=== PATIENT | female | born 1970 | race Caucasian/White ===

== ENCOUNTER 2020-02-21 15:14 | Outpatient (CLI) | payer MEDICARE, OTHER, SELFPAY ==
--- NOTE | ~2020-02-21 | MM_ITS ---
EXAMINATION: MM screening kyleigh BI w sydnie HISTORY: Screening mammogram TECHNIQUE: Craniocaudal and mediolateral oblique 3-D tomosynthesis images were obtained and synthetic 2-D images were generated. CAD analysis was submitted and interpreted. COMPARISON: 02/11/2015 BREAST PARENCHYMAL COMPOSITION: The breasts are heterogeneously dense, which may obscure small masses . FINDINGS: There is no evidence of suspicious mass, calcification, or architectural distortion to sugg est malignancy in either breast. There has been no suspicious interval change. IMPRESSION: 1. No mammographic evidence of malignancy. 2. Recommend routine screening mammography in one year. BI-RADS Category 1: Negative Reviewed, dictated and finalized at location A. TCHER
== END 2020-02-21 15:15 | disposition home or self-care (01) ==
LOC: ANHIMG 15:24
PROVIDERS: PCP Internal Medicine Infectious Disease; Visit Provider Internal Medicine Infectious Disease
DX: Z12.31 Encounter for screening mammogram for malignant neoplasm of breast (principal)
CPT/HCPCS: 77063; 77067

== ENCOUNTER → 2020-06-12 10:19 | Outpatient (CLI) | payer MEDICARE, OTHER, SELFPAY ==
--- NOTE | ~2020-06-12 | XR_ITS ---
EXAMINATION: HAND-KENYON ARTHRITIS 3+VIEWS DATE: 06/12/2020 11:30 INDICATION: Osteoarthritis and rheumatoid arthritis TECHNIQUE: Posteroanterior, lateral, and oblique views of the left and of the right hands as well as a ballcatchers view of both hands were obtained. COMPARISON: 11/06/2013 FINDINGS: Normal alignment at the bilateral hands and wrists. No fracture. Joint spaces appear relatively prese rved throughout with no erosions or osteophytosis to suggest either an inflammatory or degenerative a rthritis respectively. Soft tissues are unremarkable. IMPRESSION: 1. Negative bilateral hand radiographs. No evident arthritis. Reviewed, dictated and finalized at location A.
--- NOTE | ~2020-06-12 | XR_ITS ---
XR foot LT standing 2V DATE: 06/12/2020 11:30 INDICATION: Rheumatoid arthritis TECHNIQUE: Weightbearing AP and lateral views COMPARISON: None FINDINGS: No fracture or dislocation, periosteal reaction or bone destruction. Joint spaces are prese rved. No erosive changes. IMPRESSION: Negative Reviewed, dictated and finalized at location A. IMPRESSION: Negative
--- NOTE | ~2020-06-12 | XR_ITS ---
XR foot RT standing 2V DATE: 06/12/2020 11:30 INDICATION: Rheumatoid arthritis TECHNIQUE: Weightbearing AP and lateral views COMPARISON: None FINDINGS: No fracture, dislocation, periosteal reaction or bone destruction, joint space narrowing or erosive change. IMPRESSION: Negative Reviewed, dictated and finalized at location A. IMPRESSION: Negative
== END ==
PROVIDERS: PCP Internal Medicine Infectious Disease; Visit Provider Internal Medicine
DX: M06.9 Rheumatoid arthritis, unspecified (principal); M19.90 Unspecified osteoarthritis, unspecified site
CPT/HCPCS: 73130; 73620

== ENCOUNTER 2021-05-09 15:05 | Outpatient (CLI) | payer OTHER, SELFPAY ==
[2021-05-09 16:14] LABS: Hematocrit 41.7 % (37.0-47.0); Hemoglobin 13.2 g/dL (12.0-15.0); Mean Corpuscular HGB Conc 31.7 g/dl (32-36); Mean Corpuscular Hemoglobin 29.9 pg (26-34); Mean Corpuscular Volume 94.6 fl (80-100); Mean Platelet Volume 10.1 fl (7.4-10.4); Platelet Count Result 281 k/mm3 (150-375); Red Blood Count 4.41 M/mm3 (4.2-5.4); Red Cell Distribution Width 13.3 % (11.5-14.5); White Blood Count 5.8 K/mm3 (4.5-10.0)
[2021-05-09 16:29] LABS: Alanine Aminotransferase 13 U/L (4-35); Albumin Level 4.7 g/dL (3.5-5.1); Alkaline Phosphatase 66 U/L (38-126); Anion Gap 10 mmol/L (8-16); Aspartate Amino Transferase 27 U/L (14-36); Bilirubin,Total 0.3 mg/dL (0.2-1.3); Blood Urea Nitrogen 14 mg/dL (7-17); CRP < 0.5 mg/dL (<1.0); Calcium 8.8 mg/dL (8.4-10.2); Carbon Dioxide 26 mmol/L (22-30); Chloride 104 mmol/L (98-107); Estimated Glomerular Filt Rate > 60; Glucose 88 mg/dL (65-110); Potassium 3.7 mmol/L (3.4-5.0); Sodium 140 mmol/L (137-145)
[2021-05-09 16:39] LABS: Add Urine Microscopic? YES; Appearance Urine Clear (Clear); Bilirubin Urine Negative (Negative); Blood Urine 1+ (Negative); Color Urine Yellow (Yellow); Glucose Urine UA Negative (Negative); Ketones Urine Negative (Negative); Leukocyte Esterase Ur Negative LEU/UL (Negative); Mucus Urine Rare /lpf; Nitrate Urine Negative (Negative); Protein Urine Negative (Negative); RBC Urine 0-2 /hpf (0-2); Specific Grav Ur 1.019 (1.001-1.035); Squamous Epithelial Cell Urine Occasional /hpf (Few); Urobilinogen Urine Negative mg/dL (<2.0); WBC Urine 0-3 /hpf
[2021-05-09 16:45] LABS: Erythrocyte Sedimentation Rate 9 mm/hr (0-20)
== END 2021-05-09 15:06 | disposition home or self-care (01) ==
LOC: ANHLAB 15:06
PROVIDERS: PCP Internal Medicine Infectious Disease; Visit Provider Internal Medicine
DX: M06.09 Rheumatoid arthritis without rheumatoid factor, multiple sites (principal)
CPT/HCPCS: 36415; 80053; 81001; 85027; 85652; 86140

== ENCOUNTER → 2021-05-27 15:37 | Outpatient (CLI) | payer OTHER, SELFPAY ==
--- NOTE | ~2021-05-27 | US_ITS ---
EXAMINATION: US retroperitoneal comp EXAM DATE: 05/27/2021 15:54 INDICATION: Family hx of renal cancer . Urethral sling 2018. TECHNIQUE: Multiple grayscale and Doppler images of the kidneys were obtained (by a technologist who performed the scan) and subsequently reviewed. There is no prior study for comparison. FINDINGS: Right kidney: There is normal contour and echogenicity. It measures 8.8 x 4.3 x 4.2 centimeters. Th ere are no focal renal lesions identified. There is no hydronephrosis. Left kidney: There is normal contour and echogenicity. It measures 9.6 x 5.3 x 5.1 centimeters. The re are no focal renal lesions identified. There is no hydronephrosis. Bladder unremarkable. IMPRESSION: Sonographically unremarkable kidneys. Reviewed, dictated and finalized at location A.
== END ==
PROVIDERS: PCP Urology; Visit Provider Internal Medicine Infectious Disease
DX: Z87.448 Personal history of other diseases of urinary system (principal); Z80.51 Family history of malignant neoplasm of kidney
CPT/HCPCS: 76770

== ENCOUNTER 2021-06-24 15:55 | Outpatient (CLI) | payer OTHER, SELFPAY ==
--- NOTE | ~2021-06-24 | MM_ITS ---
EXAMINATION: MM screening kyleigh BI w sydnie HISTORY: Screening mammogram TECHNIQUE: Craniocaudal and mediolateral oblique 3-D tomosynthesis images were obtained and synthetic 2-D images were generated. Bilateral rotated lateral CC views. CAD analysis was submitted and interp reted. COMPARISON: 02/21/2020, 02/11/2015 bilateral screening mammogram examinations BREAST PARENCHYMAL COMPOSITION: The breasts are heterogeneously dense, which may obscure small masses . FINDINGS: There is no evidence of suspicious mass, calcification, or architectural distortion to sugg est malignancy in either breast. There has been no suspicious interval change. IMPRESSION: 1. No mammographic evidence of malignancy. 2. Recommend routine screening mammography in one year. BI-RADS Category 1: Negative Reviewed, dictated and finalized at location A.
== END 2021-06-24 15:56 | disposition home or self-care (01) ==
PROVIDERS: PCP Urology; Visit Provider Obstetrics & Gynecology
DX: Z12.31 Encounter for screening mammogram for malignant neoplasm of breast (principal)
CPT/HCPCS: 77063; 77067

== ENCOUNTER 2021-11-04 11:37 | Outpatient (CLI) | payer OTHER, SELFPAY ==
[2021-11-04 14:49] LABS: Hematocrit 39.4 % (37.0-47.0); Hemoglobin 12.7 g/dL (12.0-15.0); Mean Corpuscular HGB Conc 32.2 g/dl (32-36); Mean Corpuscular Hemoglobin 30.2 pg (26-34); Mean Corpuscular Volume 93.8 fl (80-100); Mean Platelet Volume 10.2 fl (7.4-10.4); Platelet Count Result 282 k/mm3 (150-375)
== END 2021-11-04 11:38 | disposition home or self-care (01) ==
LOC: ANHLAB 11:39
PROVIDERS: PCP Internal Medicine Infectious Disease; Visit Provider Internal Medicine
DX: M06.9 Rheumatoid arthritis, unspecified (principal)
CPT/HCPCS: 36415; 85027

== ENCOUNTER 2021-11-25 13:11 | Outpatient (CLI) | payer OTHER, SELFPAY | END 2021-11-25 13:12 | disposition home or self-care (01) | LOC: ANHLAB 13:12 | PROVIDERS: Internal Medicine Critical Care Medicine; PCP Internal Medicine Infectious Disease; Visit Provider Internal Medicine Hematology & Oncology | DX: D64.9 Anemia, unspecified (principal); Z72.821 Inadequate sleep hygiene | CPT/HCPCS: 36415; 82728 ==

== ENCOUNTER 2022-02-19 13:22 | Outpatient (CLI) | payer OTHER, SELFPAY ==
[2022-02-19 13:43] LABS: Hematocrit 40.1 % (37.0-47.0); Hemoglobin 13.2 g/dL (12.0-15.0); Mean Corpuscular HGB Conc 32.9 g/dl (32-36); Mean Corpuscular Hemoglobin 30.1 pg (26-34); Mean Corpuscular Volume 91.6 fl (80-100); Mean Platelet Volume 9.8 fl (7.4-10.4); Platelet Count Result 291 k/mm3 (150-375); Red Blood Count 4.38 M/mm3 (4.2-5.4); Red Cell Distribution Width 12.7 % (11.5-14.5); White Blood Count 5.2 K/mm3 (4.5-10.0)
[2022-02-19 14:04] LABS: Add Urine Microscopic? YES; Appearance Urine Slightly Cloudy (Clear); Bilirubin Urine Negative (Negative); Blood Urine 1+ (Negative); Color Urine Yellow (Yellow); Glucose Urine UA Negative (Negative); Ketones Urine Negative (Negative); Leukocyte Esterase Ur Negative LEU/UL (Negative); Nitrate Urine Negative (Negative); Protein Urine Negative (Negative); Specific Grav Ur >= 1.030 (1.001-1.035); Urobilinogen Urine 0.2 mg/dL (<2.0); pH Urine 5.5 (5.0-9.0)
[2022-02-19 14:24] LABS: Bacteria Urine Trace /hpf; Mucus Urine Few /lpf; Squamous Epithelial Cell Urine Many /hpf (Few); WBC Urine 0-3 /hpf
[2022-02-19 14:26] LABS: Erythrocyte Sedimentation Rate 14 mm/hr (0-20)
[2022-02-19 16:09] LABS: Alanine Aminotransferase 20 U/L (6-35); Albumin Level 4.4 g/dL (3.5-5.1); Alkaline Phosphatase 59 U/L (38-126); Anion Gap 7 mmol/L (8-16); Aspartate Amino Transferase 26 U/L (14-36); Bilirubin,Total 0.5 mg/dL (0.2-1.3); Blood Urea Nitrogen 11 mg/dL (7-17); CRP < 0.5 mg/dL (<1.0); Calcium 8.6 mg/dL (8.4-10.2); Carbon Dioxide 25 mmol/L (22-30); Chloride 105 mmol/L (98-107); Estimated Glomerular Filt Rate > 60; Glucose 113 mg/dL (65-110); Potassium 3.7 mmol/L (3.4-5.0); Sodium 137 mmol/L (137-145)
== END 2022-02-19 13:23 | disposition home or self-care (01) ==
LOC: ANHLAB 13:25
PROVIDERS: Internal Medicine Critical Care Medicine; PCP Internal Medicine Geriatric Medicine; Visit Provider Internal Medicine
DX: M19.90 Unspecified osteoarthritis, unspecified site (principal); D64.9 Anemia, unspecified; M06.09 Rheumatoid arthritis without rheumatoid factor, multiple sites; E55.9 Vitamin D deficiency, unspecified
CPT/HCPCS: 36415; 80053; 81001; 82306; 82728; 85027; 85652; 86140

== ENCOUNTER 2022-03-11 13:17 | Outpatient (CLI) | payer OTHER, SELFPAY ==
--- NOTE | ~2022-03-11 | XR_ITS ---
XR fl inj shoulder RT - MR/CT DATE: 03/11/2022 14:26 INDICATION: Glenoid labral tear right shoulder TECHNIQUE: The purpose of the procedure, technique and potential complications were discussed with th e patient. The patient indicated understanding and gave consent. Timeout procedure confirmed proper patient. The skin of the anterior aspect of the right shoulder was prepared with sterile Betadine solution. St erile drape was applied. 1% lidocaine local anesthetic was administered to the skin and underlying brock bcutaneous tissues. A 22-gauge spinal needle was introduced into the right glenohumeral joint space using fluoroscopic gu idance. 12 CC mixed Omnipaque, multi-Nancy and lidocaine injection was made into the glenohumeral boy nt using fluoroscopy to confirm intra-articular position of the contrast material. The needle was then withdrawn. The patient tolerated procedure well, without complaint IMPRESSION: Pre-MRI right shoulder intra-articular injection of 12 CC mixed Omnipaque and multi-Nancy contrast material and lidocaine Reviewed, dictated and finalized at Location A. Reviewed, dictated and finalized at location B. [employer] IMPRESSION: Pre-MRI right shoulder intra-articular injection of 12 CC mixed Omn ipaque and multi-Nancy contrast material and lidocaine
--- NOTE | ~2022-03-11 | MR_ITS ---
EXAMINATION: MR shoulder RT w con DATE: 03/11/2022 15:05 INDICATION: Tear of the right glenoid labrum TECHNIQUE: Magnetic resonance imaging (MRI) of the right shoulder was performed following intra-rich cular gadolinium contrast injection and without intravenous contrast. Details of the glenohumeral boy nt injection have been dictated separately. Sequences included axial T2-weighted FS FSE, axial T1-we ighted FS FSE, coronal oblique T1-weighted FS FSE, coronal oblique T2-weighted FSE, sagittal T2-weigh bull FS FSE, sagittal T1-weighted FSE, and ABER (abduction external rotation) T1-weighted FS FSE. COMPARISON: None. FINDINGS: Coracoacromial arch: The acromion undersurface is curved in morphology (type II). The coracoacromial ligament is normal. M ild acromioclavicular osteoarthritis with likely vacuum phenomena within a small subarticular cystlik e changes at the acromial side of the joint space. Rotator cuff: Supraspinatus, teres minor and subscapularis tendons are normal. Mild infraspinatus tendinopathy with partial thickness intrasubstance tear intact bursal and articular surfaces of the tendon. The torn p ortion of the tendon is retracted centrally within the muscle belly approximately 4.5 cm medially fro m the middle facet footplate the level of the spinal glenoid notch. The lateral tear margin is diffic ult to appreciate likely occurring at or near the footplate. The torn portion of the tendon appears t o involve relatively significant portion of the right tendon. There is prominent infraspinatus muscul ar edema surrounding the torn and retracted tendon. Remaining rotator cuff musculature is unremarkabl e. Biceps tendon, glenoid labrum and glenohumeral cartilage: Long head of the biceps tendon is intact. There is a superior, anterior to posterior tear of the sammy oid labrum (SLAP tear) which extends posterior from the 12:30 position to the 11:00 position of the s uperior glenoid labrum. There is an additional tear measuring 3 mm craniocaudally at the chondral lab ral junction at the 9:00 position of the glenoid. Glenohumeral cartilage is otherwise normal. Bones and other: Normal marrow signal with no fracture or abnormal marrow replacing process. No abnormal fluid signal in the subacromial/subdeltoid bursa to suggest bursitis. IMPRESSION: 1. HIdden intrasubstance tear involving a significant portion of the infraspinatus tendon which is re tracted within the muscle belly to the level of the spinal glenoid notch but with intact bursal and a rticular surfaces with surrounding edema suggesting this is relatively recent. The site of the latera l tear margin remains indeterminate. 2. SLAP tear at the 11:00-12:30 position of the superior glenoid labrum and very small tear at the ch ondral labral junction at the 9:00 position of the posterior glenoid labrum. 3. Mild acromioclavicular osteoarthritis. Reviewed, dictated and finalized at location A. E PULLER IMPRESSION: 1. HIdden intrasubstance tear involving a significant portion of the infraspina tus tendon which is retracted within the muscle belly to the level of the spina l glenoid notch but with intact bursal and articular surfaces with surrounding edema suggesting this is relatively recent. The site of the lateral tear margin remains indeterminate. 2. SLAP tear at the 11:00-12:30 position of the superior glenoid labrum and andrew y small tear at the chondral labral junction at the 9:00 position of the pot liner ior glenoid labrum. 3. Mild acromioclavicular osteoarthritis.
== END 2022-03-11 13:18 ==
PROVIDERS: PCP Internal Medicine Infectious Disease; Visit Provider Orthopaedic Surgery
DX: S43.431S Superior glenoid labrum lesion of right shoulder, sequela (principal); M19.011 Primary osteoarthritis, right shoulder; S46.811A Strain of other muscles, fascia and tendons at shoulder and upper arm level, right arm, initial encounter; T14.90XS Injury, unspecified, sequela
CPT/HCPCS: 23350; 73222; 77002; A9577; Q9967

== ENCOUNTER 2022-05-29 11:32 | Outpatient (CLI) | payer OTHER, SELFPAY ==
[2022-05-29 12:24] LABS: Hematocrit 38.4 % (37.0-47.0); Hemoglobin 12.5 g/dL (12.0-15.0); Mean Corpuscular HGB Conc 32.6 g/dl (32-36); Mean Corpuscular Hemoglobin 30.9 pg (26-34); Mean Corpuscular Volume 94.8 fl (80-100); Mean Platelet Volume 10.1 fl (7.4-10.4); Platelet Count Result 280 k/mm3 (150-375); Red Blood Count 4.05 M/mm3 (4.2-5.4); Red Cell Distribution Width 13.2 % (11.5-14.5); White Blood Count 9.9 K/mm3 (4.5-10.0)
[2022-05-29 14:39] LABS: Immature Reticulocyte Fraction 7.7 % (3.0-15.9); Reticulocyte Hemoglobin Conten 34.8 pg (28.2-35.7); Reticulocytes Absolute 0.07 B/L (32.2-175.7)
[2022-05-29 14:43] LABS: Appearance Urine Clear (Clear); Bilirubin Urine Negative (Negative); Blood Urine Negative (Negative); Color Urine Yellow (Yellow); Glucose Urine UA Negative (Negative); Ketones Urine Negative (Negative); Leukocyte Esterase Ur Negative LEU/UL (Negative); Nitrate Urine Negative (Negative); Protein Urine Negative (Negative); Specific Grav Ur 1.009 (1.001-1.035); Urobilinogen Urine 0.2 mg/dL (<2.0)
[2022-05-29 14:44] LABS: Add Urine Microscopic? NO
[2022-05-29 14:52] LABS: Alanine Aminotransferase 18 U/L (6-35); Albumin Level 4.6 g/dL (3.5-5.1); Alkaline Phosphatase 62 U/L (38-126); Anion Gap 9 mmol/L (8-16); Aspartate Amino Transferase 26 U/L (14-36); Bilirubin,Total 0.4 mg/dL (0.2-1.3); Blood Urea Nitrogen 10 mg/dL (7-17); Calcium 9.3 mg/dL (8.4-10.2); Carbon Dioxide 31 mmol/L (22-30); Chloride 101 mmol/L (98-107); Estimated Glomerular Filt Rate > 60; Glucose 87 mg/dL (65-110); Potassium 3.5 mmol/L (3.4-5.0); Sodium 141 mmol/L (137-145)
[2022-05-29 14:58] LABS: Erythrocyte Sedimentation Rate 14 mm/hr (0-20)
[2022-05-29 15:04] LABS: Vitamin D 25 Hydroxy 24.8 ng/mL
[2022-05-29 15:53] LABS: Iron 92 ug/dL (37-170)
[2022-05-29 16:19] LABS: Percent Iron Saturation 30 % (20-50)
== END 2022-05-29 11:33 | disposition home or self-care (01) ==
LOC: ANHLAB 11:33
PROVIDERS: Internal Medicine Critical Care Medicine; PCP Internal Medicine Infectious Disease; Visit Provider Internal Medicine
DX: D64.9 Anemia, unspecified (principal); M06.09 Rheumatoid arthritis without rheumatoid factor, multiple sites; M19.90 Unspecified osteoarthritis, unspecified site; R31.29 Other microscopic hematuria; E55.9 Vitamin D deficiency, unspecified
CPT/HCPCS: 36415; 80053; 81003; 82306; 82728; 83540; 83550; 85027; 85046; 85652; 86038

== ENCOUNTER 2022-09-24 13:45 | Outpatient (CLI) | payer OTHER, SELFPAY ==
[2022-09-28 14:31] LABS: Vitamin D 1,25 (OH)2 Total 42 pg/mL (18-72); Vitamin D2 1,25 (OH)2 <8 pg/mL; Vitamin D3 1,25 (OH)2 42 pg/mL
== END 2022-09-24 13:46 | disposition home or self-care (01) ==
PROVIDERS: PCP Internal Medicine Infectious Disease; Visit Provider Internal Medicine
DX: E55.9 Vitamin D deficiency, unspecified (principal); Z79.899 Other long term (current) drug therapy
CPT/HCPCS: 36415; 82652

== ENCOUNTER 2022-12-14 12:50 | Emergency (ER) | payer OTHER, SELFPAY ==
--- NOTE | ~2022-12-14 | CT_ITS ---
EXAMINATION: CT abdomen pelvis w con DATE: 12/14/2022 15:35 INDICATION: Abdominal pain TECHNIQUE: Computed tomography (CT) of the abdomen and pelvis was performed with 100 mL Omnipaque-350 intravenous contrast. Automated exposure control and iterative reconstruction technique were employe d. The dose-length product was 205.50 mGy-cm. COMPARISON: None FINDINGS: Lung bases are clear. Heart size is normal. No pericardial or pleural effusion. Liver, gallbladder, s pleen, pancreas, bilateral adrenal glands and left kidney are normal. 6 mm low-attenuation right khadijah l cyst. Bowels including the appendix are normal. Bladder and right adnexa are unremarkable. A couple fluid attenuation cysts/follicles at the left adnexa the larger measuring 1.5 cm. Heterogeneous myom etrial enhancement at the fundus of the retroflexed uterus with a few tiny foci of low attenuation brock ggestive of adenomyosis. No free intraperitoneal gas or fluid. No pathologically enlarged abdominal o r pelvic lymphadenopathy. Minimal lumbar levocurvature. IMPRESSION: 1. No acute intra-abdominal/pelvic process. 2. Heterogeneous enhancement of the myometrial at the uterine fundus with a few tiny cystlike low-att enuation lesions which suggests adenomyosis. Could consider follow-up pelvic ultrasound for further e valuation. Reviewed, dictated and finalized at location A. IMPRESSION: 1. No acute intra-abdominal/pelvic process. 2. Heterogeneous enhancement of the myometrial at the uterine fundus with a few tiny cystlike low-attenuation lesions which suggests adenomyosis. Could consid er follow-up pelvic ultrasound for further evaluation.
--- NOTE | ~2022-12-14 | XR_ITS ---
EXAMINATION: XR chest 2V DATE: 12/14/2022 15:53 INDICATION: Cough and shortness of breath TECHNIQUE: PA and lateral views of the chest were obtained. COMPARISON: Chest radiograph dated 06/16/2016 and 05/21/2005 FINDINGS: The lungs remain clear with no focal airspace opacities, pulmonary edema, pleural effusion or pneumot horax. The cardiomediastinal silhouette is normal. Indeterminate 1 cm mixed lytic and sclerotic lesio n at the proximal metaphyseal region of the left humerus. IMPRESSION: 1. No acute cardiopulmonary disease. 2. Indeterminate mixed lytic and sclerotic lesion at the proximal left humerus which is not evident o n radiographs from 2005. Recommend dedicated left humeral radiographs. Reviewed, dictated and finalized at location A. IMPRESSION: 1. No acute cardiopulmonary disease. 2. Indeterminate mixed lytic and sclerotic lesion at the proximal left humerus which is not evident on radiographs from 2005. Recommend dedicated left humeral radiographs.
[2022-12-14 12:53] VITALS: BP 132/100; PULSE 122; RESP 18; TEMP 36.5; O2SAT 100
[2022-12-14 13:14] LABS: Eosinophils Percent Auto 1.3 % (0-4.4); Hematocrit 38.6 % (37.0-47.0); Hemoglobin 12.3 g/dL (12.0-15.0); Immature Granulocyte Absolute 0.01 K/mm3 (0.00-0.031); Immature Granulocyte Percent A 0.3 % (0-0.5); Lymphocytes Absolute Auto 1.15 K/mm3 (0.9-3.2); Lymphocytes Percent Auto 38.6 % (18.3-44.2); Mean Corpuscular HGB Conc 31.9 g/dl (32-36); Mean Corpuscular Hemoglobin 29.6 pg (26-34); Mean Platelet Volume 10.3 fl (7.4-10.4); Monocytes Absolute Auto 0.4 K/mm3 (0.1-0.6); Monocytes Percent Auto 14.1 % (2.6-8.5); Neutrophils Absolute Auto 1.3 K/mm3 (1.3-6.7); Neutrophils Percent Auto 44.7 % (45.5-73.1); Platelet Count Result 240 k/mm3 (150-375); Red Blood Count 4.15 M/mm3 (4.2-5.4); Red Cell Distribution Width 12.9 % (11.5-14.5)
[2022-12-14 13:27] LABS: Alanine Aminotransferase 48 U/L (6-35); Albumin Level 4.2 g/dL (3.5-5.1); Alkaline Phosphatase 88 U/L (38-126); Anion Gap 8 mmol/L (8-16); Aspartate Amino Transferase 44 U/L (14-36); Bilirubin,Total 0.9 mg/dL (0.2-1.3); Blood Urea Nitrogen 14 mg/dL (7-17); Calcium 8.6 mg/dL (8.4-10.2); Carbon Dioxide 24 mmol/L (22-30); Chloride 106 mmol/L (98-107); Estimated CRCL calculation 108 ml/min; Estimated Glomerular Filt Rate > 60; Glucose 101 mg/dL (65-110); Lipase 93 U/L (23-300); Potassium 3.7 mmol/L (3.4-5.0); Sodium 138 mmol/L (137-145)
--- NOTE | 2022-12-14 14:24 | ED.GENADULT ---
HPI - General Adult General Chief complaint: Abdominal Pain <Kamilah Kelly, GRAIN SPOUTER - Last Filed: 12/14/22 14:26> Stated complaint: rib, abdominal pain <Kamilah Villatoro June GRAIN SPOUTER - Last Filed: 12/14/22 14:26> Time Seen by Provider: 12/14/22 16:14 <Kamilah Villatoro June, GRAIN SPOUTER - Last Filed: 12/14/22 14:26> History of Present Illness HPI narrative: Azeb Valadez is a 52 y/o female who presents with reports of getting over Covid from two weeks ago and now having sever epigastric pain/ and rib pain. She states hx of RA and she had a recent change of medication and came off of her methotrexate and not sure if that is causing her symptoms. She reports nausea / no vomiting / states she has felt like this before and needed to be admitted for gastritis. <Kamilah Villatoro June, GRAIN SPOUTER - Last Filed: 12/14/22 14:26> Related Data Home medications: Home Medications Medication Instructions Recorded Confirmed acetaminophen 325 mg tablet 325 mg PO Q6H PRN 05/07/20 04/22/22 (Tylenol) albuterol sulfate 90 mcg/actuation 1 puff inhalation Q4H PRN 05/07/20 04/22/22 aerosol inhaler (ProAir HFA) alprazolam 1 mg tablet 1 mg PO TID PRN 05/07/20 04/22/22 cetirizine 10 mg tablet (Zyrtec) 10 mg PO DAILY PRN 05/07/20 04/22/22 cholecalciferol (vitamin D3) PO 05/07/20 04/22/22 cyclobenzaprine 10 mg tablet 10 mg PO Q8H 05/07/20 04/22/22 diclofenac sodium 1 % topical gel 2 g topical QID 05/07/20 04/22/22 (Voltaren) esomeprazole magnesium 40 mg 40 mg PO DAILY 05/07/20 04/22/22 capsule,delayed release fluoxetine 60 mg tablet 60 mg PO DAILY 05/07/20 04/22/22 gabapentin 100 mg capsule 100 mg PO QHS 05/07/20 04/22/22 hydrocodone 5 mg-acetaminophen 325 1 tablet PO BID PRN 05/07/20 04/22/22 mg tablet ipratropium 0.5 mg-albuterol 3 mg 3 ml inhalation Q4H PRN 05/07/20 04/22/22 (2.5 mg base)/3 mL nebulization soln methylphenidate HCl 5 mg tablet 5 mg PO Q8H 05/07/20 04/22/22 modafinil 100 mg tablet (Provigil) 100 mg PO QAM 05/07/20 04/22/22 multivitamin 1 tablet PO DAILY 05/07/20 04/22/22 naloxone 4 mg/actuation nasal 4 mg intranasal Q2M PRN 05/07/20 04/22/22 spray (Narcan) oxybutynin chloride 10 mg 10 mg PO DAILY 05/07/20 04/22/22 tablet,extended release 24 hr quetiapine 25 mg tablet 25 mg PO QHS 05/07/20 04/22/22 tramadol 50 mg tablet 50 mg PO QID PRN 05/07/20 04/22/22 triamcinolone acetonide 0.1 % 1 applic topical BID 05/07/20 04/22/22 topical cream zaleplon 10 mg capsule 10 mg PO QHS PRN 05/07/20 04/22/22 <Kamilah Villatoro June, GRAIN SPOUTER - Last Filed: 12/14/22 14:26> Allergies/adverse reactions: Allergies Allergy/AdvReac Type Severity Reaction Status Date / Time paroxetine Allergy Unknown Rash Verified 12/14/22 14:49 <Kamilah Villatoro June, GRAIN SPOUTER - Last Filed: 12/14/22 14:26> Review of Systems Review of Systems: All systems reviewed & are unremarkable except as noted in HPI and below <Sade Moss MD - Last Filed: 12/17/22 16:24> [facility] Past Medical History Medical History: Medical History ADHD Allergies Anxiety Arthritis Asthma Degenerative joint disease of cervical and lumbar spine Encounter for IUD removal 12/22/10 Mirena removal Encounter for screening for other viral diseases Fibromyalgia GERD (gastroesophageal reflux disease) Headache History of IBS Insomnia Osteopenia PTSD (post-traumatic stress disorder) Raynauds disease Rheumatoid arthritis Rotator cuff injury Seronegative rheumatoid arthritis of multiple sites (~2009) Vocal cord nodules x3 removed <Kamilah Kelly, GRAIN SPOUTER - Last Filed: 12/14/22 14:26> Surgical History Surgical History: Surgical History H/O nasal septoplasty septoplasty & turbinectomy H/O shoulder surgery 02/19/18 lt shoulder H/O shoulder surgery (10/17/20) left shoulder History of hysteroscopy 1994 hscope d&c 12/09/11 hscope d&c--irregular menses--proliferative endome
[2022-12-14 14:46] VITALS: BP 111/66; PULSE 63; RESP 22; O2SAT 100
[2022-12-14 17:25] LABS: Appearance Urine Clear (Clear); Bilirubin Urine Negative (Negative); Blood Urine Negative (Negative); Color Urine Yellow (Yellow); Glucose Urine UA Negative (Negative); Ketones Urine 1+ mg/dL (Negative); Leukocyte Esterase Ur Negative LEU/UL (Negative); Nitrate Urine Negative (Negative); Protein Urine Negative (Negative); Urobilinogen Urine 0.2 mg/dL (<2.0); pH Urine 7.5 (5.0-9.0)
[2022-12-14 17:42] LABS: Add Urine Microscopic? NO; Specific Grav Ur 1.079 (1.001-1.035)
[2022-12-14] MEDS: SODIUM CHLORIDE 0.9% IV 1,000 ML 999 ML IV CONT (18:03)
[2022-12-14] MEDS: ONDANSETRON INJ 4 MG/2 ML VIAL IV PUSH (18:04)
[2022-12-14] MEDS: HYDROmorphone HCL INJ (*CRX) 1 MG/ML SYR IV PUSH (18:04)
[2022-12-14] MEDS: FAMOTIDINE 20 MG/2 ML VIAL IV PUSH (18:04)
[2022-12-14 18:16] VITALS: BP 123/72; PULSE 84; RESP 18; O2SAT 100
[2022-12-14 19:13] VITALS: BP 125/81; PULSE 84; RESP 23
[2022-12-14 19:19] VITALS: BP 130/70; PULSE 73; RESP 14; O2SAT 99
[2022-12-14 20:54] VITALS: BP 128/94; PULSE 74; RESP 15; O2SAT 100
== END 2022-12-14 20:55 | disposition home or self-care (01) ==
PROVIDERS: Emergency Medicine; Emergency Provider Emergency Medicine; PCP Internal Medicine Infectious Disease
DX: R10.13 Epigastric pain (principal); R11.0 Nausea; J45.909 Unspecified asthma, uncomplicated; I73.00 Raynaud's syndrome without gangrene; M06.09 Rheumatoid arthritis without rheumatoid factor, multiple sites; M79.7 Fibromyalgia; M85.80 Other specified disorders of bone density and structure, unspecified site; M47.812 Spondylosis without myelopathy or radiculopathy, cervical region; M47.816 Spondylosis without myelopathy or radiculopathy, lumbar region; M19.90 Unspecified osteoarthritis, unspecified site; K58.9 Irritable bowel syndrome, unspecified; K21.9 Gastro-esophageal reflux disease without esophagitis; F43.10 Post-traumatic stress disorder, unspecified; F41.9 Anxiety disorder, unspecified; F90.9 Attention-deficit hyperactivity disorder, unspecified type; M89.9 Disorder of bone, unspecified
CPT/HCPCS: 36415; 71046; 74177; 80053; 81003; 83690; 85025; 96361; 96374; 96375; 99284; J1170; J2405; J7030; Q9967

== ENCOUNTER 2023-01-07 12:19 | Outpatient (CLI) | payer OTHER, SELFPAY ==
[2023-01-07 12:46] LABS: Hematocrit 39.6 % (37.0-47.0); Hemoglobin 12.6 g/dL (12.0-15.0); Mean Corpuscular HGB Conc 31.8 g/dl (32-36); Mean Corpuscular Hemoglobin 29.3 pg (26-34); Mean Corpuscular Volume 92.1 fl (80-100); Mean Platelet Volume 10.1 fl (7.4-10.4); Platelet Count Result 244 k/mm3 (150-375); Red Cell Distribution Width 13.2 % (11.5-14.5); White Blood Count 4.1 K/mm3 (4.5-10.0)
[2023-01-07 12:53] LABS: Appearance Urine Clear (Clear); Bacteria Urine None Seen /hpf; Bilirubin Urine Negative (Negative); Blood Urine Negative (Negative); Color Urine Yellow (Yellow); Glucose Urine UA Negative (Negative); Ketones Urine Negative (Negative); Leukocyte Esterase Ur Negative LEU/UL (Negative); Nitrate Urine Negative (Negative); Non Pathogenic Casts 0-2; Protein Urine Trace mg/dL (Negative); RBC Urine 0-2 /hpf (0-2); Specific Grav Ur 1.016 (1.001-1.035); Squamous Epithelial Cell Urine Few /hpf (Few); Urobilinogen Urine 0.2 mg/dL (<2.0); WBC Urine 0-5 /hpf; pH Urine 5.5 (5.0-9.0)
[2023-01-07 12:55] LABS: Add Urine Microscopic? YES
[2023-01-07 13:02] LABS: Alanine Aminotransferase 16 U/L (6-35); Albumin Level 4.5 g/dL (3.5-5.1); Alkaline Phosphatase 75 U/L (38-126); Anion Gap 11 mmol/L (8-16); Aspartate Amino Transferase 23 U/L (14-36); Bilirubin,Total 0.5 mg/dL (0.2-1.3); Blood Urea Nitrogen 15 mg/dL (7-17); CRP < 0.5 mg/dL (<1.0); Calcium 8.9 mg/dL (8.4-10.2); Carbon Dioxide 23 mmol/L (22-30); Chloride 104 mmol/L (98-107); Estimated Glomerular Filt Rate > 60; Glucose 113 mg/dL (65-110); Potassium 4.1 mmol/L (3.4-5.0); Sodium 138 mmol/L (137-145)
[2023-01-07 13:28] LABS: Erythrocyte Sedimentation Rate 16 mm/hr (0-20)
== END 2023-01-07 12:20 | disposition home or self-care (01) ==
PROVIDERS: PCP Internal Medicine Infectious Disease; Visit Provider Internal Medicine
DX: M06.09 Rheumatoid arthritis without rheumatoid factor, multiple sites (principal); M19.90 Unspecified osteoarthritis, unspecified site
CPT/HCPCS: 36415; 80053; 81001; 85027; 85652; 86140

== ENCOUNTER 2023-04-07 06:47 | Emergency (ER) | payer MEDICARE, SELFPAY ==
--- NOTE | ~2023-04-07 | XR_ITS ---
EXAMINATION: XR chest 2V DATE: 04/07/2023 08:38 INDICATION: Chest pressure. Chest pain. TECHNIQUE: Frontal and lateral views of the chest were obtained. COMPARISON: Chest 2 views 12/14/2022, 06/16/2016 FINDINGS: There is no pneumonia, pleural effusion, or pneumothorax. The heart size is normal. Again s een is a 11 mm lytic lesion with sclerotic margin involving proximal left humerus, likely surgical ch jakob. IMPRESSION: 1. No acute cardiopulmonary disease. Reviewed, dictated and finalized at location A. [employer]
[2023-04-07 06:47] VITALS: BP 153/91; PULSE 77; RESP 24; TEMP 36.9; O2SAT 100
[2023-04-07 06:58] VITALS: BP 153/91; PULSE 81; RESP 27; O2SAT 100
--- NOTE | 2023-04-07 07:00 | ECG_ITS ---
Measurements Intervals [place] Rate: 72 P: 63 CO: 173 QRS: 55 QRSD: 85 T: 56 QT: 389 QTc: 426 Interpretive Statements SINUS RHYTHM NORMAL ECG NO PREVIOUS ECG AVAILABLE FOR COMPARISON Electronically Signed On 04-07-2023 11:52:25 [employer] ARCHITECT by Madan Quiroz M.D.
--- NOTE | 2023-04-07 08:11 | PC.NURSE ---
This RN went in to discuss POC w/ pt, give updates. Room was found empty w/ side rails up. Pt was not in XRAY. Pt found to be walking back in from outside. Steady gait. Re directed to room.
[2023-04-07 08:21] VITALS: BP 123/71; PULSE 86; RESP 24; O2SAT 98
[2023-04-07 08:27] LABS: Basophils Absolute Auto 0.1 K/mm3 (0.0-0.1); Basophils Percent Auto 0.5 % (0.2-1.2); Eosinophils Percent Auto 0.4 % (0-4.4); Hematocrit 42.9 % (37.0-47.0); Hemoglobin 13.7 g/dL (12.0-15.0); Immature Granulocyte Absolute 0.05 K/mm3 (0.00-0.031); Immature Granulocyte Percent A 0.5 % (0-0.5); Lymphocytes Absolute Auto 1.72 K/mm3 (0.9-3.2); Lymphocytes Percent Auto 15.5 % (18.3-44.2); Mean Corpuscular HGB Conc 31.9 g/dl (32-36); Mean Corpuscular Hemoglobin 30.2 pg (26-34); Mean Corpuscular Volume 94.5 fl (80-100); Mean Platelet Volume 9.8 fl (7.4-10.4); Monocytes Absolute Auto 0.8 K/mm3 (0.1-0.6); Monocytes Percent Auto 7.4 % (2.6-8.5); Neutrophils Absolute Auto 8.4 K/mm3 (1.3-6.7); Neutrophils Percent Auto 75.7 % (45.5-73.1); Platelet Count Result 287 k/mm3 (150-375); Red Blood Count 4.54 M/mm3 (4.2-5.4); Red Cell Distribution Width 13.8 % (11.5-14.5); White Blood Count 11.1 K/mm3 (4.5-10.0)
[2023-04-07 08:37] LABS: Alanine Aminotransferase 17 U/L (6-35); Albumin Level 4.6 g/dL (3.5-5.1); Alkaline Phosphatase 73 U/L (38-126); Anion Gap 6 mmol/L (8-16); Aspartate Amino Transferase 33 U/L (14-36); Bilirubin,Total 0.9 mg/dL (0.2-1.3); Blood Urea Nitrogen 13 mg/dL (7-17); Calcium 9.7 mg/dL (8.4-10.2); Carbon Dioxide 28 mmol/L (22-30); Chloride 105 mmol/L (98-107); Estimated CRCL calculation 64 ml/min; Estimated Glomerular Filt Rate > 60; Glucose 106 mg/dL (65-110); Potassium 3.8 mmol/L (3.4-5.0); Sodium 139 mmol/L (137-145)
[2023-04-07 08:42] LABS: INR 1.1; Prothrombin Time 14.2 Seconds (11.1-14.7)
[2023-04-07 08:49] LABS: Troponin I < 0.012 ng/mL (0.000-0.034)
--- NOTE | 2023-04-07 08:53 | PC.NURSE ---
spoke to pts mother w/ pts verbal permission, gave update on pt status
--- NOTE | 2023-04-07 09:32 | ED.GENADULT ---
HPI - General Adult General Chief complaint: Anxiety Stated complaint: Anxiety Time Seen by Provider: 04/07/23 07:02 History of Present Illness HPI narrative: Patient is a 53-year-old female who presents ER with anxiety and chest pain. Reports she has been off of Xanax for months and has recently started hydroxyzine to treat her anxiety. She took a full tab last night had a nightmare. She reports she has run and night terrors it well. She was having tingling in her hands shortness of breath today. She is having central chest pressure over last 2 days. She reports high amounts of stress at home. No history of heart disease. She cannot take benzodiazepines due to being on chronic pain medication for her rheumatoid arthritis. Related Data Home Medications Medication Instructions Recorded Confirmed acetaminophen 325 mg tablet 325 mg PO Q6H PRN 05/07/20 01/25/23 (Tylenol) albuterol sulfate 90 mcg/actuation 1 puff inhalation Q4H PRN 05/07/20 01/25/23 aerosol inhaler (ProAir HFA) alprazolam 1 mg tablet 1 mg PO TID PRN 05/07/20 01/25/23 cetirizine 10 mg tablet (Zyrtec) 10 mg PO DAILY PRN 05/07/20 01/25/23 cholecalciferol (vitamin D3) PO 05/07/20 01/25/23 diclofenac sodium 1 % topical gel 2 g topical QID 05/07/20 01/25/23 (Voltaren) esomeprazole magnesium 40 mg 40 mg PO DAILY 05/07/20 01/25/23 capsule,delayed release fluoxetine 60 mg tablet 60 mg PO DAILY 05/07/20 01/25/23 gabapentin 100 mg capsule 100 mg PO QHS 05/07/20 01/25/23 hydrocodone 5 mg-acetaminophen 325 1 tablet PO BID PRN 05/07/20 01/25/23 mg tablet ipratropium 0.5 mg-albuterol 3 mg 3 ml inhalation Q4H PRN 05/07/20 01/25/23 (2.5 mg base)/3 mL nebulization soln methylphenidate HCl 5 mg tablet 5 mg PO Q8H 05/07/20 01/25/23 modafinil 100 mg tablet (Provigil) 100 mg PO QAM 05/07/20 01/25/23 multivitamin 1 tablet PO DAILY 05/07/20 01/25/23 naloxone 4 mg/actuation nasal 4 mg intranasal Q2M PRN 05/07/20 01/25/23 spray (Narcan) oxybutynin chloride 10 mg 10 mg PO DAILY 05/07/20 01/25/23 tablet,extended release 24 hr quetiapine 25 mg tablet 25 mg PO QHS 05/07/20 01/25/23 tramadol 50 mg tablet 50 mg PO QID PRN 05/07/20 01/25/23 triamcinolone acetonide 0.1 % 1 applic topical BID 05/07/20 01/25/23 topical cream zaleplon 10 mg capsule 10 mg PO QHS PRN 05/07/20 01/25/23 Allergies Allergy/AdvReac Type Severity Reaction Status Date / Time paroxetine Allergy Unknown Rash Verified 01/25/23 09:14 Review of Systems Review of Systems: All systems reviewed & are unremarkable except as noted in HPI and below Constitutional: Constitutional: Reports no additional constitutional complaints ENT: Reports system reviewed and no additional complaints, except as documented Cardiovascular: Cardiovascular: Reports chest pain, Denies rapid heart rate and Denies radiating jaw, neck or arm pain Respiratory: Respiratory: Reports no additional respiratory complaints Gastrointestinal: Gastrointestinal: Reports no additional gastrointestinal complaints Psychiatric: Psychiatric: Reports anxiety and Denies depression [facility] Past Medical History Medical History (Updated 04/07/23 @ 09:34 by Elijah Wasserman MD) Abnormal x-ray of humerus ADHD Allergies Anxiety Arthritis Asthma Constipation Degenerative joint disease of cervical and lumbar spine Elevated LFTs Encounter for IUD removal 12/22/10 Mirena removal Encounter for screening colonoscopy Encounter for screening for other viral diseases Fibromyalgia GERD (gastroesophageal reflux disease) Headache History of IBS Insomnia LLQ pain Osteopenia PTSD (post-traumatic stress disorder) Raynauds disease Rheumatoid arthritis Rotator cuff injury RUQ pain Seronegative rheumatoid arthritis of multiple sites (~2009) Vocal cord nodules x3 removed Surgical History Surgical History H/O nasal septoplasty septoplasty & turbinectomy H/O shoulder surgery 02/19
[2023-04-07 09:36] VITALS: BP 101/77; PULSE 72; RESP 16; TEMP 36.6; O2SAT 99
== END 2023-04-07 09:40 | disposition home or self-care (01) ==
PROVIDERS: Emergency Provider Emergency Medicine; PCP Internal Medicine Infectious Disease
DX: F41.9 Anxiety disorder, unspecified (principal); R07.9 Chest pain, unspecified; F90.9 Attention-deficit hyperactivity disorder, unspecified type; M19.90 Unspecified osteoarthritis, unspecified site; J45.909 Unspecified asthma, uncomplicated; K21.9 Gastro-esophageal reflux disease without esophagitis
CPT/HCPCS: 36415; 71046; 80053; 84484; 85025; 85610; 85730; 93005; 99284

== ENCOUNTER 2023-04-13 17:53 | Emergency (ER) | payer MEDICARE, SELFPAY ==
--- NOTE | ~2023-04-13 | XR_ITS ---
EXAMINATION: XR chest 2V DATE: 04/13/2023 18:17 INDICATION: Chest pain. TECHNIQUE: Frontal and lateral views of the chest were obtained. COMPARISON: Chest 2 views 04/07/2023, CT abdomen and pelvis 12/14/2022 FINDINGS: There is no pneumonia, pleural effusion, or pneumothorax. The heart size is normal. IMPRESSION: 1. No acute cardiopulmonary disease. Reviewed, dictated and finalized at location E. MAN CLERK
[2023-04-13 17:56] VITALS: BP 130/76; PULSE 84; RESP 16; TEMP 36.3; O2SAT 100
--- NOTE | 2023-04-13 17:58 | ECG_ITS ---
Measurements Intervals [place] Rate: 77 P: 64 SC: 175 QRS: 74 QRSD: 80 T: 61 QT: 369 QTc: 420 Interpretive Statements SINUS RHYTHM NORMAL ECG COMPARED TO ECG 04/07/2023 07:03:04 NO SIGNIFICANT CHANGES Electronically Signed On 04-14-2023 16:15:25 [employer] APPLIANCE INSTALLER by Isidro Santana M.D.
--- NOTE | 2023-04-13 17:59 | ED.CHESTPAIN ---
HPI - Chest Pain General Chief Complaint: Chest Pain Stated Complaint: chest pain Time Seen by Provider: 04/13/23 17:59 Focused HPI: This is a 53 year old female that presents to the ER for chest pain. Ongoing over the last week. Was evaluated at our hospital for same. Reports the pain is sharp and burning in nature. In the substernal area. It has been constant. Has taken her reflux medication with little relief. Denies shortness of breath. GENERAL: Well-appearing, well-nourished, and in no acute distress. HEAD: Normocephalic, atraumatic. CHEST: Clear to auscultation. ?No respiratory distress. HEART: Regular rate and rhythm.? NEURO: ?Alert and oriented x3. Patient screened in triage and initial orders placed.? ?Additional care and disposition to be based upon?diagnostic testing and treatment. Related Data Home Medications Medication Instructions Recorded Confirmed acetaminophen 325 mg tablet 325 mg PO Q6H PRN 05/07/20 01/25/23 (Tylenol) albuterol sulfate 90 mcg/actuation 1 puff inhalation Q4H PRN 05/07/20 01/25/23 aerosol inhaler (ProAir HFA) alprazolam 1 mg tablet 1 mg PO TID PRN 05/07/20 01/25/23 cetirizine 10 mg tablet (Zyrtec) 10 mg PO DAILY PRN 05/07/20 01/25/23 cholecalciferol (vitamin D3) PO 05/07/20 01/25/23 diclofenac sodium 1 % topical gel 2 g topical QID 05/07/20 01/25/23 (Voltaren) esomeprazole magnesium 40 mg 40 mg PO DAILY 05/07/20 01/25/23 capsule,delayed release fluoxetine 60 mg tablet 60 mg PO DAILY 05/07/20 01/25/23 gabapentin 100 mg capsule 100 mg PO QHS 05/07/20 01/25/23 hydrocodone 5 mg-acetaminophen 325 1 tablet PO BID PRN 05/07/20 01/25/23 mg tablet ipratropium 0.5 mg-albuterol 3 mg 3 ml inhalation Q4H PRN 05/07/20 01/25/23 (2.5 mg base)/3 mL nebulization soln methylphenidate HCl 5 mg tablet 5 mg PO Q8H 05/07/20 01/25/23 modafinil 100 mg tablet (Provigil) 100 mg PO QAM 05/07/20 01/25/23 multivitamin 1 tablet PO DAILY 05/07/20 01/25/23 naloxone 4 mg/actuation nasal 4 mg intranasal Q2M PRN 05/07/20 01/25/23 spray (Narcan) oxybutynin chloride 10 mg 10 mg PO DAILY 05/07/20 01/25/23 tablet,extended release 24 hr quetiapine 25 mg tablet 25 mg PO QHS 05/07/20 01/25/23 tramadol 50 mg tablet 50 mg PO QID PRN 05/07/20 01/25/23 triamcinolone acetonide 0.1 % 1 applic topical BID 05/07/20 01/25/23 topical cream zaleplon 10 mg capsule 10 mg PO QHS PRN 05/07/20 01/25/23 Allergies Allergy/AdvReac Type Severity Reaction Status Date / Time paroxetine Allergy Unknown Rash Verified 01/25/23 09:14 Review of Systems Review of Systems: CONSTITUTIONAL: Denies fever CARDIOVASCULAR: Reports chest pain. Denies edema. RESPIRATORY: Denies dyspnea. All systems reviewed & are unremarkable except as noted in HPI and below PMFSH Past Medical History Medical History (Updated 04/14/23 @ 13:33 by Shawna Acevedo PA-C) Abnormal x-ray of humerus ADHD Allergies Anxiety Arthritis Asthma Constipation Degenerative joint disease of cervical and lumbar spine Elevated LFTs Encounter for IUD removal 12/22/10 Mirena removal Encounter for screening colonoscopy Encounter for screening for other viral diseases Fibromyalgia GERD (gastroesophageal reflux disease) Headache History of IBS Insomnia LLQ pain Osteopenia PTSD (post-traumatic stress disorder) Raynauds disease Rheumatoid arthritis Rotator cuff injury RUQ pain Seronegative rheumatoid arthritis of multiple sites (~2009) Vocal cord nodules x3 removed Surgical History Surgical History H/O nasal septoplasty septoplasty & turbinectomy H/O shoulder surgery 02/19/18 lt shoulder H/O shoulder surgery (10/17/20) left shoulder History of hysteroscopy 1994 hscope d&c 12/09/11 hscope d&c--irregular menses--proliferative endometrium mid phase History of tonsillectomy Status post creation of urethral sling by suprapubic approach Family History Family History (Reviewed 01/25/23 @ 0
[2023-04-13 18:23] LABS: Basophils Percent Auto 0.4 % (0.2-1.2); Eosinophils Percent Auto 0.4 % (0-4.4); Hematocrit 42.2 % (37.0-47.0); Hemoglobin 13.3 g/dL (12.0-15.0); Immature Granulocyte Absolute 0.01 K/mm3 (0.00-0.031); Immature Granulocyte Percent A 0.1 % (0-0.5); Lymphocytes Absolute Auto 2.34 K/mm3 (0.9-3.2); Lymphocytes Percent Auto 34.4 % (18.3-44.2); Mean Corpuscular HGB Conc 31.5 g/dl (32-36); Mean Corpuscular Hemoglobin 29.8 pg (26-34); Mean Corpuscular Volume 94.4 fl (80-100); Mean Platelet Volume 10.1 fl (7.4-10.4); Monocytes Absolute Auto 0.4 K/mm3 (0.1-0.6); Monocytes Percent Auto 6.5 % (2.6-8.5); Neutrophils Percent Auto 58.2 % (45.5-73.1); Platelet Count Result 292 k/mm3 (150-375); Red Blood Count 4.47 M/mm3 (4.2-5.4); Red Cell Distribution Width 13.8 % (11.5-14.5); White Blood Count 6.8 K/mm3 (4.5-10.0)
[2023-04-13 18:33] LABS: Alanine Aminotransferase 16 U/L (6-35); Albumin Level 4.8 g/dL (3.5-5.1); Alkaline Phosphatase 64 U/L (38-126); Anion Gap 6 mmol/L (8-16); Aspartate Amino Transferase 29 U/L (14-36); Bilirubin,Total 0.5 mg/dL (0.2-1.3); Blood Urea Nitrogen 9 mg/dL (7-17); Calcium 9.6 mg/dL (8.4-10.2); Carbon Dioxide 28 mmol/L (22-30); Chloride 103 mmol/L (98-107); Estimated CRCL calculation 84 ml/min; Estimated Glomerular Filt Rate > 60; Glucose 105 mg/dL (65-110); Lipase 175 U/L (23-300); Potassium 3.7 mmol/L (3.4-5.0); Sodium 137 mmol/L (137-145)
[2023-04-13 18:34] LABS: Partial Thromboplastin Time 32.4 SECONDS (22.3-36.8); Prothrombin Time 13.9 Seconds (11.1-14.7)
[2023-04-13 18:45] LABS: Troponin I < 0.012 ng/mL (0.000-0.034)
[2023-04-13 19:01] LABS: D Dimer < 0.27 ug/mL (<0.48)
--- NOTE | 2023-04-13 19:57 | PC.NURSE ---
patient states she looked up all her results online and everything looks ok so Im going to got home
== END 2023-04-13 21:51 | disposition left against medical advice (07) ==
PROVIDERS: Emergency Provider Physician Assistant; PCP Internal Medicine Infectious Disease
DX: R07.9 Chest pain, unspecified (principal)
CPT/HCPCS: 36415; 71046; 80053; 83690; 84484; 85025; 85380; 85610; 85730; 93005; 99284

== ENCOUNTER 2023-06-03 14:16 | Outpatient (CLI) | payer MEDICARE, SELFPAY ==
[2023-06-03 14:37] LABS: Basophils Percent Auto 0.7 % (0.2-1.2); Eosinophils Absolute Auto 0.1 K/mm3 (0-0.3); Hematocrit 37.9 % (37.0-47.0); Hemoglobin 12.2 g/dL (12.0-15.0); Immature Granulocyte Absolute 0.01 K/mm3 (0.00-0.031); Immature Granulocyte Percent A 0.2 % (0-0.5); Lymphocytes Absolute Auto 2.25 K/mm3 (0.9-3.2); Lymphocytes Percent Auto 41.2 % (18.3-44.2); Mean Corpuscular HGB Conc 32.2 g/dl (32-36); Mean Corpuscular Hemoglobin 30.7 pg (26-34); Mean Corpuscular Volume 95.5 fl (80-100); Mean Platelet Volume 9.8 fl (7.4-10.4); Monocytes Absolute Auto 0.4 K/mm3 (0.1-0.6); Monocytes Percent Auto 8.1 % (2.6-8.5); Neutrophils Absolute Auto 2.6 K/mm3 (1.3-6.7); Neutrophils Percent Auto 47.8 % (45.5-73.1); Platelet Count Result 290 k/mm3 (150-375); Red Blood Count 3.97 M/mm3 (4.2-5.4); Red Cell Distribution Width 13.2 % (11.5-14.5); White Blood Count 5.5 K/mm3 (4.5-10.0)
[2023-06-03 16:28] LABS: Appearance Urine Clear (Clear); Bilirubin Urine Negative (Negative); Blood Urine Negative (Negative); Color Urine Yellow (Yellow); Glucose Urine UA Negative (Negative); Ketones Urine Negative (Negative); Leukocyte Esterase Ur Negative LEU/UL (Negative); Nitrate Urine Negative (Negative); Protein Urine Negative (Negative); Specific Grav Ur 1.007 (1.001-1.035); Urobilinogen Urine 0.2 mg/dL (<2.0); pH Urine 7.5 (5.0-9.0)
[2023-06-03 16:33] LABS: Add Urine Microscopic? NO
[2023-06-03 16:48] LABS: Erythrocyte Sedimentation Rate 16 mm/hr (0-20)
[2023-06-03 19:20] LABS: Alanine Aminotransferase 14 U/L (6-35); Albumin Level 4.5 g/dL (3.5-5.1); Alkaline Phosphatase 60 U/L (38-126); Anion Gap 4 mmol/L (4-12); Aspartate Amino Transferase 23 U/L (14-36); Bilirubin,Total 0.5 mg/dL (0.2-1.3); Blood Urea Nitrogen 13 mg/dL (7-17); Calcium 9.2 mg/dL (8.4-10.2); Carbon Dioxide 29 mmol/L (22-30); Chloride 105 mmol/L (98-107); Estimated Glomerular Filt Rate > 60; Glucose 93 mg/dL (65-110); Sodium 138 mmol/L (137-145)
[2023-06-03 20:22] LABS: CRP < 0.5 mg/dL (<1.0)
== END 2023-06-03 14:17 | disposition home or self-care (01) ==
LOC: ANHLAB 14:18
PROVIDERS: PCP Internal Medicine Infectious Disease; Referring Provider Internal Medicine; Visit Provider Internal Medicine Hematology & Oncology
DX: M06.09 Rheumatoid arthritis without rheumatoid factor, multiple sites (principal); M19.90 Unspecified osteoarthritis, unspecified site; M89.9 Disorder of bone, unspecified
CPT/HCPCS: 36415; 80053; 81003; 85025; 85652; 86140

== ENCOUNTER 2024-01-31 12:24 | Outpatient (CLI) | payer MEDICARE, SELFPAY ==
[2024-01-31 13:29] LABS: Basophils Percent Auto 0.6 % (0.2-1.2); Eosinophils Absolute Auto 0.1 K/mm3 (0-0.3); Eosinophils Percent Auto 2.5 % (0-4.4); Hematocrit 40.1 % (37.0-47.0); Hemoglobin 12.9 g/dL (12.0-15.0); Immature Granulocyte Absolute 0.01 K/mm3 (0.00-0.031); Immature Granulocyte Percent A 0.2 % (0-0.5); Lymphocytes Percent Auto 43.1 % (18.3-44.2); Mean Corpuscular HGB Conc 32.2 g/dl (32-36); Mean Corpuscular Hemoglobin 30.5 pg (26-34); Mean Corpuscular Volume 94.8 fl (80-100); Mean Platelet Volume 10.1 fl (7.4-10.4); Monocytes Absolute Auto 0.5 K/mm3 (0.1-0.6); Monocytes Percent Auto 9.2 % (2.6-8.5); Neutrophils Absolute Auto 2.2 K/mm3 (1.3-6.7); Neutrophils Percent Auto 44.4 % (45.5-73.1); Platelet Count Result 261 k/mm3 (150-375); Red Blood Count 4.23 M/mm3 (4.2-5.4); Red Cell Distribution Width 12.8 % (11.5-14.5); White Blood Count 4.9 K/mm3 (4.5-10.0)
[2024-01-31 13:53] LABS: Add Urine Microscopic? NO; Appearance Urine Clear (Clear); Bilirubin Urine Negative (Negative); Blood Urine Negative (Negative); Color Urine Yellow (Yellow); Glucose Urine UA Negative (Negative); Ketones Urine Negative (Negative); Leukocyte Esterase Ur Negative LEU/UL (Negative); Nitrate Urine Negative (Negative); Protein Urine Negative (Negative); Specific Grav Ur 1.012 (1.001-1.035); Urobilinogen Urine 0.2 mg/dL (<2.0); pH Urine 5.5 (5.0-9.0)
[2024-01-31 13:57] LABS: Albumin Level 4.5 g/dL (3.5-5.1); Anion Gap 6 mmol/L (4-12); Blood Urea Nitrogen 12 mg/dL (7-17); CRP < 0.5 mg/dL (<1.0); Calcium 9.2 mg/dL (8.4-10.2); Carbon Dioxide 28 mmol/L (22-30); Chloride 104 mmol/L (98-107); Estimated Glomerular Filt Rate > 60; Glucose 100 mg/dL (65-110); Phosphorus 3.4 mg/dL (2.5-4.5); Potassium 4.1 mmol/L (3.4-5.0); Sodium 138 mmol/L (137-145); Uric Acid 2.7 mg/dL (2.5-7.5)
[2024-01-31 14:17] LABS: Erythrocyte Sedimentation Rate 13 mm/hr (0-20)
== END 2024-01-31 12:25 | disposition home or self-care (01) ==
PROVIDERS: PCP Internal Medicine Infectious Disease; Visit Provider Internal Medicine
DX: M10.9 Gout, unspecified (principal); M47.819 Spondylosis without myelopathy or radiculopathy, site unspecified
CPT/HCPCS: 36415; 80069; 81003; 84550; 85025; 85652; 86140

== ENCOUNTER 2024-06-09 12:31 | Outpatient (CLI) | payer OTHER, SELFPAY ==
--- OUTSIDE RECORDS SUMMARY | 2024-06-09 12:38 | XMS_ITS | Encounter Summary ---
Author Organization [email or web address] Address [address] [place] [address] Phone Care Team Providers Care Music Director Name Role Phone Raulito Weathers RN Unavailable Unavailabl e Clinton Ramirez MD Primary Care Provider [phone] Dagoberto Katz MD Unavailable [phone] Sherman Milton MD Unavailable [phone] Ilan Olsen MD Unavailable [phone] Ganesh Hess MD Unavailable [phone] Evan Lozano MD Unavailable [phone] Nicola Méndez DO Unavailable Sherman Milton MD Unavailable [phone] Ilan Crowley MD Unavailable [phone] Clinton Ramirez MD Primary Care Provider [phone] Juventino Keith MD Unavailable [phone] Vince Walton MD Unavailable [phone] Carl Alicea Unavailable [phone] Heidy Kenny MD Unavailable [phone] Elijah Alas MD Unavailable [phone] Elijah Alas MD Unavailable [phone] Encounter Details Date Type Department Care Team (Late st Contact Info) Description 02/12/2020 Orders Only [facility] [address] [place] [address] Scanning, Provider Social History Tobacco Use Types Packs/Day Years Used Date Smoking Tobacco: Never Smokeless Tobacco: Never Alcohol Use Standard Drinks/Week Comments Yes 0 (1 standard drink = 0.6 oz pur e alcohol) PHQ-2 Answer Date Recorded PHQ-2 Score 5 12/22/2019 Comments Unknown Sex and Gender Information Value Date Recorded Sex Assigned at Not on file 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 Author [facility] On track( 022 2:25 PM CDT) No Roselyn Douglas RN Note: Patient will establish a comfort-function goal and identify the pain level that will allow the patient to perform desired activities and achieve an acceptable quality of life. documented as of this encounter Procedures Procedure Name Priority Date/Time Associated Diagnosis Comments SCAN - LABS 02/12/2020 documented in this encounter Results * SCAN - LABS (02/12/2020) Provider Scanning Final Result documented in this encounter Visit Diagnoses Not on filedocumented in this encounter Care Teams Music Director Relationship Specialty Start Date End Date Clinton Ramirez MD [address] [place] [address] PCP - General 03/01/19 05/08/20 Clinton Ramirez MD [address] [place] [address] PCP - General Infectious Diseases 05/09/20 Raulito Weathers, JESSICA Registered Nurse 07/22/17 Dagoberto Katz MD [address] [place] [address] [place] [address] Consulting Physician Psychiatry 08/23/99 08/11/23 Sherman Milton MD [address] [place] [address] Consulting Physician Otolaryngology 03/21/19 Ilan Olsen MD [address] [place] [address] Consulting Physician Otolaryngology 03/21/19 Ganesh Hess MD [address] [place] [address] Consulting Physician Obstetrics and Gynecology 03/21/19 Evan Lozano MD [address] [place] [address] Consulting Physician Urology 12/06/17 Nicola Méndez DO [id number] [place] [address] [place] Laborer Obstetrics and Gynecology 02/02/19 Sherman Milton MD [address] [place] [address] Consulting Physician Otolaryngology 11/14/19 04/14/23 Ilan Crowley MD [id number] [place] [address] Anesthesiologist Anesthesiology 02/02/20 04/14/23 Juventino Keith MD [address] [place] [address] [id number] [place] [address] Referring Physician Rheumatology 05/09/20 Vinec Walton MD [address] [facility] [address] [facility] [address] [place] [address] Surgeon Orthopedic Surgery 10/03/20 aCrl Alicea PA [address] [facility] [address] [place] [address] Physician Upholstery Handler Orthopedic Surgery 10/17/20 Heidy Kenny MD [address] [facility] [address] [facility] [address] [place] [address] Consulting Physician Neurosurgery 07/13/22 Elijah Alas MD [address] [facility] [address] [facility] [address] [place] [address] Consulting Physician Anesthesiology 04/15/23 Elijah Alas MD [address] [facility] [address] [place] [address] Consulting Physician Anesthesiology 08/12/23 08/12/23 documented as of this encounter
--- OUTSIDE RECORDS SUMMARY | 2024-06-09 12:38 | XMS_ITS | Encounter Summary ---
Author Organization [facility] Address [address] [place] [address] Phone Care Team Providers Care Appeals Court Associate Justice Name Role Phone Raulito Weathers RN Unavailable Unavailabl e Clinton Ramirez MD Primary Care Provider [phone] Dagoberto Katz MD Unavailable [phone] Sherman Milton MD Unavailable [phone] Ilan Olsen MD Unavailable [phone] Ganesh Hess MD Unavailable [phone] Evan Lozano MD Unavailable [phone] Nicola Méndez DO Unavailable Sherman Milton MD Unavailable [phone] Ilan Crowley MD Unavailable [phone] Clinton Ramirez MD Primary Care Provider [phone] Juventino Keith MD Unavailable [phone] Vince Walton MD Unavailable [phone] Carl Alicea Unavailable [phone] Heidy Kenny MD Unavailable [phone] Elijah Alas MD Unavailable [phone] Elijah Alas MD Unavailable [phone] Encounter Details Date Type Department Care Team (Late st Contact Info) Description 02/21/2020 Orders Only [facility] [address] [place] [address] Scanning, Provider Social History Tobacco Use Types Packs/Day Years Used Date Smoking Tobacco: Never Smokeless Tobacco: Never Alcohol Use Standard Drinks/Week Comments Yes 0 (1 standard drink = 0.6 oz pur e alcohol) PHQ-2 Answer Date Recorded PHQ-2 Score 5 12/22/2019 Comments Unknown Sex and Gender Information Value Date Recorded Sex Assigned at Not on file 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 Gender Identity Not on file Sexual Orientation [...] Priority Date/Time Associated Diagnosis Comments SCAN - RADIOLOGY/IMAGING 02/21/2020 documented in this encounter Results * SCAN - RADIOLOGY/IMAGING (02/21/2020) Anatomical Region Laterality Modality Other us Provider Scanning Edited Result - Final documented in this encounter Visit Diagnoses Not on filedocumented in this encounter Care Teams Appeals Court Associate Justice Relationship Specialty Start Date End Date Clinton Ramirez MD [address] [place] [address] PCP - General 03/01/19 05/08/20 Clinton Ramirez MD [address] [place] [address] PCP - General Infectious Diseases 05/09/20 Raulito Weathers, JESSICA Registered Nurse 07/22/17 Dagoberto Katz MD [address] [place] [address] [place] [address] Consulting Physician Psychiatry 08/23/99 08/11/23 Sherman Milton MD [address] [place] [address] Consulting Physician Otolaryngology 03/21/19 Ilan Olsen MD [address] [place] [address] Consulting Physician Otolaryngology 03/21/19 Ganesh Hess MD [address] [place] [address] Consulting Physician Obstetrics and Gynecology 03/21/19 Evan Lozano MD [address] [place] [address] Consulting Physician Urology 12/06/17 Nicola Méndez DO [id number] [place] [address] Electric Motor Mechanic Obstetrics and Gynecology 02/02/19 Sherman Milton MD [address] [place] [address] Consulting Physician Otolaryngology 11/14/19 04/14/23 Ilan Crowley MD [id number] [place] [address] Anesthesiologist Anesthesiology 02/02/20 04/14/23 Juventino Keith MD [address] [facility] [id number] [place] [address] Referring Physician Rheumatology 05/09/20 Vince Walton MD [address] [facility] [address] [facility] [address] [place] [address] Surgeon Orthopedic Surgery 10/03/20 Carl Alicea PA [address] [facility] [address] [place] [address] Physician In Service Educator Orthopedic Surgery 10/17/20 Heidy Kenny MD [address] [facility] [address] [place] [address] Consulting Physician Neurosurgery 07/13/22 Elijah Alas MD [address] [facility] [address] [facility] [address] [place] [address] Consulting Physician Anesthesiology 04/15/23 Elijah Alas MD [address] [facility] [address] [place] [address] Consulting Physician Anesthesiology 08/12/23 08/12/23 documented as of this encounter
--- OUTSIDE RECORDS SUMMARY | 2024-06-09 12:38 | XMS_ITS ---
Author Organization [facility] [employer] [facility] Address [address] [place] [address] Care Team Providers Care Flat Lock Machine Operator Name Role Phone James JUDD, Clinton Primary Care Provider Kym Durand Unavailable [phone] REASON FOR VISIT [employer] Refill Social History Sex Assigned At : Social History Observation Description Sex Assigned At Female Encounters Encounter Location Date Provider Diagnosis [facility] [employer] [facility] [address] [place] [address] 06/08/2024 Kym Neville Plan Of Treatment Next Appt Details Provider Name:Kym Neville, 09/04/2024 01:00:00 PM, [address], [address], [place], [address], Progress Notes * NIHARIKA GASTELUMOB:1970 ( 54 yo F)Acc No.[id number]:06/08/2024 Patient: ADRIAN BENAVIDESN :1970 A ge:54 Y S ex:Female Address: [address], [facility] [address] * true * Date: Generated for Printi ng/Faxing/eTransmitting on: 0 06/09/2024 12:38 PM CDT
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
--- OUTSIDE RECORDS SUMMARY | 2024-06-09 12:38 | XMS_ITS | Encounter Summary ---
Author Organization [facility] Address [address] [place] [address] Phone Care Team Providers Care Juvenile Justice Officer Name Role Phone Raulito Weathers RN Unavailable Unavailabl e Dagoberto Katz MD Unavailable [phone] Sherman Milton MD Unavailable Ilan Olsen MD Unavailable [phone] Ganesh Hess MD Unavailable [phone] Evan Loazno MD Unavailable Pebbles Méndezgreciabrandy ROMERO Unavailable Sherman Milton MD Unavailable Ilan Crowley MD Unavailable [phone] Clinton Ramirez MD Primary Care Provider [phone] Juventino Keith MD Unavailable [phone] Vince Walton MD Unavailable [phone] Carl Alicea Unavailable [phone] Heidy Kenny MD Unavailable [phone] Elijah Alas MD Unavailable [phone] Elijah Alas MD Unavailable [phone] Encounter Details Date Type Department Care Team (Late st Contact Info) Description 11/04/2021 Orders Only [facility] [address] [place] [address] Clinton Ramirez MD [address] [place] [address] Social History Tobacco Use Types Packs/Day Years Used Date Smoking Tobacco: Never Smokeless Tobacco: Never Alcohol Use Standard Drinks/Week Comments Yes 0 (1 standard drink = 0.6 oz pur e alcohol) AUDIT-C Answer Date Recorded Q1: How often do you have a drink containing alc ohol? Monthly or less 10/17/2020 Q2: How many drinks containi ng alcohol do you have on a typical day when you are drinking? 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 Author [facility] On track(2021 2:25 PM CDT) No Roselyn Douglas, RN Note: Patient will establish a comfort-function goal and identify the pain level that will allow the patient to perform desired activities and achieve an acceptable quality of life. CCM Chronic Pain Care Plan Chronic Care Management No Ruthann Riddle, RN Note: Problem: Chronic Pain Goals: 1. Minimize further functional decline 2. Maximize quality of life 3. Control pain Strategies: - Activity/exercise program recommendation - Conservative stepwise pain medicine strategy with multi-disciplinary approach - Recommend healthy lifestyle strategies and compensatory methods as needed documented as of this encounter Procedures Procedure Name Priority Date/Time Associated Diagnosis Comments SCAN - LABS 11/04/2021 documented in this encounter Results * SCAN - LABS (11/04/2021) us Clinton Ramirez MD Final Result documented in this encounter Visit Diagnoses Not on filedocumented in this encounter Care Teams Juvenile Justice Officer Relationship Specialty Start Date End Date Clinton Ramirez MD [address] [place] [address] PCP - General Infectious Diseases 05/09/20 Raulito Weathers, RN Registered Nurse 07/22/17 Dagoberto Katz MD [address] [place] [address] [place] [address] Consulting Physician Psychiatry 08/23/99 08/11/23 Sherman Milton MD [address] [place] [address] Consulting Physician Otolaryngology 03/21/19 Ilan Olsen MD [address] [place] [address] Consulting Physician Otolaryngology 03/21/19 Ganesh Hess MD [address] [place] [address] Consulting Physician Obstetrics and Gynecology 03/21/19 Evan Lozano MD [address] [place] [address] Consulting Physician Urology 12/06/17 Nicola Méndez DO [id number] [place] [address] Welder Boilermaker Obstetrics and Gynecology 02/02/19 Sherman Milton MD [address] [facility] [address] [place] [address] Consulting Physician Otolaryngology 11/14/19 04/14/23 Ilan Crowley MD [address] [facility] [id number] [place] [address] Anesthesiologist Anesthesiology 02/02/20 04/14/23 Juventino Keith MD [address] [place] [address] Referring Physician Rheumatology 05/09/20 Vince Walton MD [address] [facility] [address] Seay [facility] [address] [place] [address] Surgeon Orthopedic Surgery 10/03/20 Carl Alicea PA [address] [facility] [address] [place] [address] Physician Car Spotter Orthopedic Surgery 10/17/20 Heidy Kenny MD [facility] [address] [place] [address] Consulting Physician Neurosurgery 07/13/22 Elijah Alas MD 3 [facility] [address] [facility] [address] [place] [address] Consulting Physician Anesthesiology 04/15/23 Elijah Alas MD [address] [facility] [address] [place] [address] Consulting Physician Anesthesiology 08/12/23 08/12/23 documented as of this encounter
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
--- OUTSIDE RECORDS SUMMARY | 2024-06-09 12:38 | XMS_ITS ---
Author Organization [facility] Address [address] [place] [id number] Care Team Providers Care Mail Carrier Name Role Phone Clinton Ramirez Primary Care Provider Dr. Fredrick Frias Unavailable [phone] [facility], Provider Unavailable Unavailab le Allergies Allergen (clinical drug ingredient) Drug/Non Drug Allergy documented on EMR Reaction Allergy Type Onset Date Status paroxetine Paxil rash Drug Allergy Active REASON [facility] VISIT [facility] Encounter Medications Medication SIG (Take, Route, Frequency, Duration) Notes Start Date End Date Status Omeprazole 20 MG 1 cap(s) orally once a day for 30 day(s) Active Naratriptan HCl 2.5 MG 1 tab orally bid prn for 30 days Active Linzess 72 MCG 1 cap(s) orally once a day Active Cyclobenzaprine HCl 10 MG 1 tab(s) orally 3 times a day Active Ferrous Sulfate 325 (65 Fe) MG 1 tab(s) orally once a day for 30 day(s) Active ALBUTEROL (EQV-PROAIR HFA) 90 MCG/INH 2 PUFF(S) INHALED EVERY 6 HOURS *Please review for potential replacement for e-prescription and drug interaction check* Active Leflunomide 10 MG 1 tab(s) orally once a day for 30 day(s) Active HUMIRA PEN CROHNS/ULCER COLITIS/HIDRADENITIS SUPPURATI STRPK 40 MG/0.8 ML DIRECTED SUBCUTANEOUSLY EVERY OTHER WEEK *Please review for potential replacement for e-prescription and drug interaction check* Active CeleBREX 200 MG 1 cap(s) orally once a day for 30 day(s) Active Folic Acid 1 MG 1 tab(s) orally once a day for 30 day(s) Active Zaleplon 10 MG 5 cap(s) orally once a day (at bedtime) Active Diclofenac Sodium 3 % 1 casey applied topically 2 times a day for 90 day(s) Active Gabapentin 100 MG 1 cap(s) orally HS Active traMADol HCl 50 MG 1 tab(s) orally every 6 hours Active HYDROcodone Bitartrate ER 10 MG 1 cap(s) orally every 12 hours for 30 day(s) Active ALPRAZolam 1 MG 1 tab(s) orally every 8 hours Active SEROquel 25 MG 1 tab(s) orally HS Active PROzac 20 MG 1 cap(s) orally once a day for 30 day(s) Active Multivitamin - 1 tab(s) orally once a day for 30 day(s) Active Encounters Encounter Location Date Provider Diagnosis [address] [place] [address] 08/07/2023 Provider [facility] Plan Of Treatment No Information Progress Notes * Vernell VALADEZOB:1970 ([age] yo F)Acc No.[id number]:08/07/2023 Patient: Azeb NOGUERA Provider: Link Coleman :1970 A ge:53 Y S ex:Female Date:08/07/2023 Address:[address] Pcp:Clinton Ramirez Subjective: * Chief Complaints: * [facility] * Medical History: * Medications: T aking Multivitamin - Tablet 1 tab(s) orally once [...] Allergies: P axil: rash. Objective: * Vitals: Assessment: Plan: * Treatment: * Billing Information: * Visit Code: * Procedure Codes: * Electronic signature of Barbara CONTRERAS-Migration on 06/09/2024 at 12:38 PM CDT Sign off status: Pending * Provider: Link weeks Migration Date: 0 08/07/2023 Generated for Zain villa/Aj/Jozef on: 06/09/2024 12:38 PM CDT
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
--- OUTSIDE RECORDS SUMMARY | 2024-06-09 12:39 | XMS_ITS | Encounter Summary ---
Author Organization [facility] Healthcare Address [address] [place] [address] Care Team Providers Care Hand Miter Operator Name Role Phone Florentino Bo MD Primary Care Provider [phone] Raulito Weathers RN Unavailable Unavailabl e Clinton Ramirez MD Primary Care Provider [phone] Ayaz Westbrook MD Unavailable [phone] Dagoberto Katz MD Unavailable [phone] Lucas Rachel MD Unavailable [phone] Sherman Milton MD Unavailable [phone] Ilan Olsen MD Unavailable [phone] Ganesh Hess MD Unavailable [phone] Evan Lozano MD Unavailable [phone] Nicola Méndez DO Unavailable Sherman Milton MD Unavailable Ilan Crowley MD Unavailable [phone] Clinton Ramirez MD Primary Care Provider [phone] Juventino Keith MD Unavailable [phone] Vince Walton MD Unavailable [phone] Carl Alicea Unavailable [phone] Heidy Kenny MD Unavailable [phone] Elijah Alas MD Unavailable [phone] Elijah Alas MD Unavailable [phone] Encounter Details Date Type Department Care Team (Late st Contact Info) Description 01/26/2005 Orders Only [facility] [address] [place] [address] Scanning, Provider Social History Tobacco Use Types Packs/Day Years Used Date Smoking Tobacco: Never Assessed Comments Unknown Sex and Gender Information Value Date Recorded Sex Assigned at Not on file 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 ARMATURE 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 HELPER Gender Identity Not on file Sexual Orientation Not on file documented as of this encounter Plan of Treatment Not on file documented as of this encounter Procedures Procedure Name Priority Date/Time Associated Diagnosis Comments SCAN - NEUROLOGY 01/26/2005 documented in this encounter Results * SCAN - NEUROLOGY (01/26/2005) Anatomical Region Laterality Modality Other us Provider Scanning Final Result documented in this encounter Visit Diagnoses Not on filedocumented in this encounter Care Teams Hand Miter Operator Relationship Specialty Start Date End Date Florentino Bo MD [address] [facility] [address] [facility] [address] [place] [address] PCP - General 07/03/11 02/28/19 Clinton Ramirez MD [address] [place] [address] PCP - General 03/01/19 05/08/20 Clinton Ramirez MD [address] [place] [address] PCP - General Infectious Diseases 05/09/20 Raulito Weathers, JESSICA Registered Nurse 07/22/17 Ayaz Westbrook MD NPI: [id number] [place] [address] [address] [place] [address] Consulting Physician Pain Management 03/21/19 02/01/20 Dagoberto Katz MD [address] [place] [address] [place] [address] Consulting Physician Psychiatry 08/23/99 08/11/23 Lucas Rachel MD [address] [place] [address] [place] [address] Consulting Physician Rheumatology 03/21/19 02/01/20 Sherman Milton MD [address] [place] [address] Consulting Physician Otolaryngology 03/21/19 Ilan Olsen MD [address] [place] [address] Consulting Physician Otolaryngology 03/21/19 Ganesh Hess MD [address] [place] [address] Consulting Physician Obstetrics and Gynecology 03/21/19 Evan Lozano MD [address] [place] [address] Consulting Physician Urology 12/06/17 Nicola Méndez DO [id number] [place] [address] Ranch Hand Obstetrics and Gynecology 02/02/19 Sherman Milton MD [address] [facility] [address] [place] [address] Consulting Physician Otolaryngology 11/14/19 04/14/23 Ilan Crowley MD [id number] [place] [address] Anesthesiologist Anesthesiology 02/02/20 04/14/23 Juventino Keith MD [id number] [place] [address] Referring Physician Rheumatology 05/09/20 Vince Walton MD [address] [facility] [address] [facility] [address] [place] [address] Surgeon Orthopedic Surgery 10/03/20 Carl Alicea PA [address] [facility] [address] [place] [address] Physician Biometric Fingerprinting Technician Orthopedic Surgery 10/17/20 Heidy Kenny MD [address] [facility] [address] [facility] [address] [place] [address] Consulting Physician Neurosurgery 07/13/22 Elijah Alas MD [address] [facility] [address] [facility] [address] [place] [address] Consulting Physician Anesthesiology 04/15/23 Elijah Alas MD [address] [facility] [address] [place] [address] Consulting Physician Anesthesiology 08/12/23 08/12/23 documented as of this encounter
--- OUTSIDE RECORDS SUMMARY | 2024-06-09 12:39 | XMS_ITS | Clinical Summary ---
Author Organization [facility] Address [address] [facility] Attn: Epic Prelude ADT JOSE LYNN [address] Care Team Providers Care Technical Sales Manager Name Role Phone Unavailable Primary Care Provider Unavailabl e Social History Tobacco Use Types Packs/Day Years Used Date Smoking Tobacco: Never Assessed Comments Unknown Sex and Gender Information Value Date Recorded Sex Assigned at Not on file Legal Sex Female 2:41 AM DATA CONSULTANT Gender Identity Not on file Sexual Orientation Not on file Plan of Treatment Health Maintenance Due Date Last Done Comments DTAP/TDAP/TD VACCINES (1 - Tdap) 02/05/1991 HEPATITIS B VACCINES (1 of 3 - 19+ 3-dose series) 01/22 HPV/Cotest (21-29) 02/05/1993 CERVICAL CANCER SCREENING 02/05/2002 HPV/Cotest (30-65) 02/05/2002 PAP SMEAR 02/05/2002 BREAST CANCER SCREENING 2012 COLORECTAL SCREENING 02/05/2017 Colorectal Cancer Screening 02/05/2017 FIT-DNA Q 3 years 02/05/2017 FIT/FOBT Q 1 year 02/05/2017 Flex Sig/CT Colonography Q 5 years 02/05/2017 ZOSTER VACCINE (1 of 2) 02/05/2022 INFLUENZA VACCINE (#1) 2023
--- OUTSIDE RECORDS SUMMARY | 2024-06-09 12:39 | XMS_ITS | Encounter Summary ---
Author Organization [facility] Address [address] [place] [address] Phone Care Team Providers Care Social Work Job Titles Name Role Phone Raulito Weathers RN Unavailable Unavailabl e Dagoberto Katz MD Unavailable [phone] Sherman Milton MD Unavailable Ilan Olsen MD Unavailable [phone] Ganesh Hess MD Unavailable [phone] Evan Lozano MD Unavailable [phone] Pebbles Méndezgreciabrandy ROMERO Unavailable Sherman Milton MD Unavailable Ilan Crowley MD Unavailable [phone] Clinton Ramirez MD Primary Care Provider [phone] Juventino Keith MD Unavailable [phone] Vince Walton MD Unavailable [phone] Carl Alicea Unavailable [phone] Heidy Kenny MD Unavailable [phone] Elijah Alas MD Unavailable [phone] Elijah Alas MD Unavailable [phone] Encounter Details Date Type Department Care Team (Late st Contact Info) Description 05/29/2022 Orders Only [facility] [address] [place] [address] Clinton Ramirez MD [address] [address] Social History Tobacco Use Types Packs/Day Years [...] more points, staff should administer the PHQ-9) 2 05/14/2022 Comments No Sex and Gender Information Value Date Recorded Sex Assigned at Not on file 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 MANAGER TRANSFER Gender Identity Not on file Sexual Orientation Not on file documented as of this encounter Plan of Treatment Not on file documented as of this encounter Goals Goal Patient Goal Type Associated Problems Recent Progress Patient-Stated? Author -Pain Behavioral Health On track(2021 2:25 PM CDT) Roselyn Lombardi, RN Note: Patient will establish a comfort-function goal and identify the pain level that will allow the patient to perform desired activities and achieve an acceptable quality of life. CCM Chronic Pain Care Plan Chronic Care Management No Ruthann Riddle, JESSICA Note: Problem: Chronic Pain Goals: 1. Minimize further functional decline 2. Maximize quality of life 3. Control pain Strategies: - Activity/exercise program recommendation - Conservative stepwise pain medicine strategy with multi-disciplinary approach - Recommend healthy lifestyle strategies and compensatory methods as needed documented as of this encounter Procedures Procedure Name Priority Date/Time Associated Diagnosis Comments SCAN - LABS 05/29/2022 documented in this encounter Results * SCAN - LABS (05/29/2022) Clinton Ramirez MD Final Result documented in this encounter Visit Diagnoses Not on filedocumented in this encounter Care Teams Social Work Job Titles Relationship Specialty Start Date End Date Clinton Ramirez MD [address] [place] [address] PCP - General Infectious Diseases 05/09/20 Raulito Weathers, RN Registered Nurse 07/22/17 Dagoberto Katz MD [address] [place] [address] [place] [address] Consulting Physician Psychiatry 08/23/99 08/11/23 Sherman Milton MD [address] [place] [address] Consulting Physician Otolaryngology 03/21/19 Ilan Olsen MD [address] [place], [place] [address] Consulting Physician Otolaryngology 03/21/19 Ganesh Hess MD [address] [place] [address] Consulting Physician Obstetrics and Gynecology 03/21/19 Evan Lozano MD [address] [place] [address] Consulting Physician Urology 12/06/17 Nicola Méndez DO [id number] [place] [address] Chalk Cutter Obstetrics and Gynecology 02/02/19 Sherman Milton MD [address] [facility] [address] [place] [address] Consulting Physician Otolaryngology 11/14/19 04/14/23 Ilan Crowley MD [address] [place] [address] [id number] [place] [address] Anesthesiologist Anesthesiology 02/02/20 04/14/23 Juventino Keith MD [address] [place] [address] Referring Physician Rheumatology 05/09/20 Vince Walton MD [address] [facility] [address] [facility] [address] [place] [address] Surgeon Orthopedic Surgery 10/03/20 Carl Alicea PA [address] [facility] [address] [place] [address] Physician Housekeeping Worker Orthopedic Surgery 10/17/20 Heidy Kenny MD 3 [facility] [address] [facility] [address] [place] [address] Consulting Physician Neurosurgery 07/13/22 Elijah Alas MD [address] [facility] [address] [facility] [address] [place] [address] Consulting Physician Anesthesiology 04/15/23 Elijah Alas MD [address] [facility] [address] [place] [address] Consulting Physician Anesthesiology 08/12/23 08/12/23 documented as of this encounter
--- OUTSIDE RECORDS SUMMARY | 2024-06-09 12:39 | XMS_ITS | Encounter Summary ---
Author Organization [facility] Address [address] [place] [address] Phone Care Team Providers Care Mission Systems Engineer Name Role Phone Florentino Bo MD Primary Care Provider [phone] Raulito Weathers RN Unavailable Unavailabl e Clinton Ramirez MD Primary Care Provider [phone] Ayaz Westbrook MD Unavailable [phone] Dagoberto Katz MD Unavailable [phone] Lucas Rachel MD Unavailable [phone] Sherman Milton MD Unavailable [phone] Ilan Olsen MD Unavailable [phone] Ganesh Hess MD Unavailable [phone] Evan Lozano MD Unavailable [phone] Nicola Méndez DO Unavailable Sherman Milton MD Unavailable Ilan Crowley MD Unavailable [phone] Clinton Ramirez MD Primary Care Provider [phone] Juventino Keith MD Unavailable [phone] Vince Walton MD Unavailable [phone] Carl Alicea Unavailable [phone] Heidy Kenny MD Unavailable Elijah Alas MD Unavailable [phone] Elijah Alas MD Unavailable [phone] Encounter Details Date Type Department Care Team (Late st Contact Info) Description 06/11/2017 Orders Only [facility] [address] [place] [id number] Scanning, Provider Social History Tobacco Use Types Packs/Day Years Used Date Smoking Tobacco: Never Alcohol Use Standard Drinks/Week Comments No 0 (1 standard drink = 0.6 oz pur e alcohol) Comments Unknown Sex and Gender Information Value Date Recorded Sex Assigned at Not on file 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 Gender Identity Not on file Sexual Orientation Not on file documented as of this encounter Plan of Treatment Not on file documented as of this encounter Procedures Procedure Name Priority Date/Time Associated Diagnosis Comments SCAN - LABS 06/11/2017 documented in this encounter Results * SCAN - LABS (06/11/2017) us Provider Scanning Final Result documented in this encounter Visit Diagnoses Not on filedocumented in this encounter Care Teams Mission Systems Engineer Relationship Specialty Start Date End Date Florentino Bo MD [address] [facility] [address] [facility] [address] [place] [address] PCP - General 07/03/11 02/28/19 Clinton Ramirez MD [address] [place] [place] [address] PCP - General 03/01/19 05/08/20 Clinton Ramirez MD [address] [place] [address] PCP - General Infectious Diseases 05/09/20 Raulito Weathers, RN Registered Nurse 07/22/17 Ayaz Westbrook MD [address] [facility] [address] [place] [address] Consulting Physician Pain Management 03/21/19 02/01/20 Dagoberto Katz MD [address] [facility] [place] [address] Consulting Physician Psychiatry 08/23/99 08/11/23 Lucas Rachel MD [address] [facility] [place] [address] Consulting Physician Rheumatology 03/21/19 02/01/20 Sherman Milton MD [address] [facility] [address] [place], [place] [id number] Consulting Physician Otolaryngology 03/21/19 Ilan Olsen MD [address] [place], [place] [id number] Consulting Physician Otolaryngology 03/21/19 Ganesh Hess MD [address] [place] [address] Consulting Physician Obstetrics and Gynecology 03/21/19 Evan Lozano MD [address] [place] [address] Consulting Physician Urology 12/06/17 Nicola Méndez DO [id number] [place] [address] Millwright Apprentice Obstetrics and Gynecology 02/02/19 Sherman Milton MD [address] [place] [address] Consulting Physician Otolaryngology 11/14/19 04/14/23 Ilan Crowley MD [id number] [place] [address] Anesthesiologist Anesthesiology 02/02/20 04/14/23 Juventino Keith MD [id number] [place] [address] Referring Physician Rheumatology 05/09/20 Vince Walton MD [address] [facility] [address] [facility] [address] [place] [address] Surgeon Orthopedic Surgery 10/03/20 Carl Alicea PA [address] [facility] [address] [place] [address] Physician Absorption Plant Operator Helper Orthopedic Surgery 10/17/20 Heidy Kenny MD [facility] [address] [place] [address] Consulting Physician Neurosurgery 07/13/22 Elijah Alas MD [address] [facility] [address] [facility] [address] [place] [address] Consulting Physician Anesthesiology 04/15/23 Elijah Alas MD [address] [facility] [address] [place] [address] Consulting Physician Anesthesiology 08/12/23 08/12/23 documented as of this encounter
--- OUTSIDE RECORDS SUMMARY | 2024-06-09 12:39 | XMS_ITS ---
Author Organization [facility] Address [address] [place] [address] Care Team Providers Care Service Learning Coordinator Name Role Phone Clinton Ramirez Primary Care Provider Dr. Fredrick Frias Unavailable [phone] REASON FOR VISIT For scheduling Encounters Encounter Location Date Provider Diagnosis [facility] [address] [place] [address] 12/13/2023 Fredrick Mendez Plan Of Treatment No Information Progress Notes * Vernell VALADEZOB:1970 (7 1 yo F)Acc No.[id number]:12/13/2023 Patient: Bryce NOGUERAn :1970 A ge:53 Y S ex:Female Address:[facility] [address], [place] [address] * true * Date: Generated for Zain villa/Aj/eTransmitting on: 0 06/09/2024 12:39 PM CDT
--- OUTSIDE RECORDS SUMMARY | 2024-06-09 12:39 | XMS_ITS | Patient Health Record ---
Author Organization [facility] Address [address] [place] [address] Care Team Providers Care Container Finisher Name Role Phone Clinton Ramirez Primary Care Provider UnavailDr. Fredrick Lnadaverde Unavailable [phone] [facility], Provider Unavailable Unavailab Hansa Hutchison Unavailable [phone] Allergies Allergen (clinical drug ingredient) Drug/Non Drug Allergy documented on EMR Reaction Allergy Type Onset Date Status paroxetine Paxil rash Drug Allergy Active Reason For Referral No Information Medications Medication SIG (Take, Route, Frequency, Duration) Notes Start Date End Date Status MULTIVITAMIN Multiple Vitamins 1 tab(s) orally once a day for 30 day(s) Active PROZAC 20 mg 1 cap(s) orally once a day for 30 day(s) Active Naratriptan HCl 2.5 MG 1 tab orally bid prn for 30 days Active SEROQUEL 25 mg 1 tab(s) orally HS Active ALBUTEROL (EQV-PROAIR HFA) 90 MCG/INH 2 PUFF(S) INHALED EVERY 6 HOURS *Please review for potential replacement for e-prescription and drug interaction check* Active HUMIRA PEN CROHNS/ULCER COLITIS/HIDRADENITIS SUPPURATI STRPK 40 MG/0.8 ML DIRECTED SUBCUTANEOUSLY EVERY OTHER WEEK *Please review for potential replacement for e-prescription and drug interaction check* Active Linzess 72 MCG 1 cap(s) orally once a day Active Ferrous Sulfate 325 (65 Fe) MG 1 tab(s) orally once a day for 30 day(s) Active CeleBREX 200 MG 1 cap(s) orally once a day for 30 day(s) Active CYCLOBENZAPRINE 10 mg 1 tab(s) orally 3 times a day Active HYDROcodone Bitartrate ER 10 MG 1 cap(s) orally every 12 hours for 30 day(s) Active Leflunomide 10 MG 1 tab(s) orally once a day for 30 day(s) Active Folic Acid 1 MG 1 tab(s) orally once a day for 30 day(s) Active Omeprazole 20 MG 1 cap(s) orally once a day for 30 day(s) Active Cyclobenzaprine HCl 10 MG 1 tab(s) orally 3 times a day Active ZALEPLON 10 mg 5 cap(s) orally once a day (at bedtime) Active LEFLUNOMIDE 10 mg 1 tab(s) orally [...] every 12 hours for 30 day(s) Active PROzac 20 MG 1 cap(s) orally once a day for 30 day(s) Active SEROquel 25 MG 1 tab(s) orally HS Active Gabapentin 100 MG 1 cap(s) orally HS Active ALPRAZolam 1 MG 1 tab(s) orally every 8 hours Active GABAPENTIN 100 mg 1 cap(s) orally HS Active OMEPRAZOLE 20 mg 1 cap(s) orally once a day for 30 day(s) Active ALPRAZOLAM 1 mg 1 tab(s) orally every 8 hours Active Multivitamin - 1 tab(s) orally once a day for 30 day(s) Active NARATRIPTAN 2.5 mg 1 tab orally bid prn for 30 days Active Diclofenac Sodium 3 % 1 casey applied topically 2 times a day for 90 day(s) Active Zaleplon 10 MG 5 cap(s) orally once a day (at bedtime) Active traMADol HCl 50 MG 1 tab(s) orally every 6 hours Active Problems Problem Type SNOMED Code ICD Code Onset Dates Problem Status W/U Status Risk Notes Problem Chronic migraine without aura, non-refractory (disorder) (724945497234863) Migraine without aura, not intractable, without status migrainosus (G43.009) Active confirmed Problem Migraine with aura (3872599) Migraine with aura, not intractable, without status migrainosus (G43.109) Active confirmed Problem Chronic migraine without aura, non-intractable (676480189567128) Chronic migraine without aura, not intractable, without status migrainosus (G43.709) Active confirmed Problem Drug induced headache (882481983165541) Drug-induced headache, not elsewhere classified, not intractable (G44.40) Active confirmed Problem Lesion of ulnar nerve (316232643) Lesion of ulnar nerve, right upper limb (G56.21) Active confirmed Problem Lesion of ulnar nerve (308713903) Lesion of ulnar nerve, left upper limb (G56.22) Active confirmed Problem Degeneration of lumbar intervertebral disc (90646007) Other intervertebral disc degeneration, lumbar region (M51.36) Active confirmed Problem Cervicalgia (92805891) Cervicalgia (M54.2) Active confirmed Problem Muscle pain (31010726) Myalgia, unspecified site (M79.10) Active confirmed Problem Cervicogenic headache (789183582) Cervicogenic headache (G44.86) Active confirmed Encounters Encounter Location Date Provider Diagnosis [facility] [address] [place] [address] 08/07/2023 Provider [facility] [address] [place] [address] 12/13/2023 Fredrick Mendez Plan Of Treatment Pending Test Test Name Order Date EMG (electromyography) - 3 (three) Romelia baker 10/15/2022 Insurance Providers Payer Name Payer Address Payer Phone Subscriber Number Group Number Insured Name Patient Relationship to Insured Coverage Start Date Coverage End Date [employer] II [address] [place] [address] [phone] [id number] Azeb Valadez Self - patient is the insured Medical (General) History Medical History History ICD Code Cervicalgia Chronic migraine RA Fibromyalgia GERD Depression/anxiety OCD PTSD Bilateral rotator cuff Surgical History Surgery Date(Month/Year) L shoulder arthroscopy
--- OUTSIDE RECORDS SUMMARY | 2024-06-09 12:39 | XMS_ITS | Clinical Summary ---
Author Organization [facility] Address [address] [place] [address] Care Team Providers Care Sports Team Manager Name Role Phone Raulito Weathers RN Unavailable Unavailabl Sherman Lawrence MD Unavailable [phone] Ilan Olsen MD Unavailable [phone] Ganesh Hess MD Unavailable [phone] Evan Lozano MD Unavailable [phone] Nicola Méndez DO Unavailable Clinton Ramirez MD Primary Care Provider [phone] Juventino Keith MD Unavailable [phone] Vince Walton MD Unavailable [phone] Carl Alicea Unavailable [phone] Heidy Kenny MD Unavailable [phone] Elijah Alas MD Unavailable [phone] Allergies Active Allergy Reactions Criticality Noted Date [...] opioid reversal or respiratory depression 1 each Active methotrexate 2.5 mg tablet Take 4 tablets (10 mg total) by mouth every 7 days Active naratriptan (AMERGE) 2.5 mg tablet Take [...] every 6 (six) hours 360 mL 5 024 Active FLUoxetine (PROzac) 60 mg tablet Take 1 tablet (60 mg total) by mouth daily 024 Active amLODIPine (NORVASC) 2.5 mg tablet Take 1 tablet (2.5 mg total) by mouth 2 (two) times a day 024 Active albuterol HFA (PROVENTIL HFA,VENTOLIN HFA,PROAIR HFA) [...] total) by mouth nightly 30 capsule 2 2024 Active celecoxib (CeleBREX) 200 mg capsuleIndicatio ns:Osteoarthriti s Take 1 capsule (200 mg total) by mouth daily 30 capsule 2 [address] (NexIUM) 40 mg capsuleIndicatio ns:Abdominal pain TAKE 1 CAPSULE (40 MG TOTAL) BY MOUTH DAILY. 90 capsule 025 Active diclofenac sodium (VOLTAREN) 1 % gelIndications:O [...] 04/09/2023 Assessment & Plan (04/15/2023 2:29 PM CONTINUITY READER): She was in the [facility] ER recently with chest pain. She [...] week. Recommend that she follow-up with her applications programmer for this problem. If she wants a [...] rotator cuff repair on 10/17/2020, Dr. Walton [facility]. Assessment & Plan (01/05/2023 3:32 PM CONTINUITY READER): She had surgery on the left shoulder about two years ago consisting of arthroscopy, distal claviculectomy and rotator cuff repair. The biceps tendon was repaired or manipulated. Recent imaging at [facility] as part of her evaluation for [...] infraspinatus tear, ordered by Orthopedics, performed at [facility]. Sleep disorder 08/23/2019 Overview (08/22/2020): Details lacking, sees Dr. Durham. Patient says she might have narcolepsy. She is on Sonata to help her fall asleep. Assessment & Plan (04/12/2021 4:32 PM CONTINUITY READER): She may have narcolepsy or a related [...] narcolepsy. Cyst of ovary 02/25/2019 Overview (03/20/2019): [place], [place]. Female stress incontinence 02/25/2019 Overview (03/20/2019): [facility], details lacking. Chronic constipation 08/22/2018 Overview (11/22/2019): [...] remedy. Assessment & Plan (04/03/2021 5:10 PM CONTINUITY READER): Movantik was not working and was expensive. She would like Linzess instead which helped her in the past. We sent in a prescription. 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 She self regulates her methotrexate dosing and did take a lower dose last week with improvement of her facial rash, see discussion elsewhere. She will follow-up with her applications programmer, Dr. Keith, for this condition. Assessment & [...] needed. Assessment & Plan (04/12/2021 4:32 PM CONTINUITY READER): She sees Dr. Keith. She is on [...] same. Assessment & Plan (04/01/2019 3:36 PM CONTINUITY READER): She was diagnosed with seronegative rheumatoid arthritis, [...] Had a urethral sling. Unremarkable kidney USN, [facility], 06/25/2021, Dr. Lozano. Assessment & Plan (04/15/2023 2:28 PM CONTINUITY READER): She is not tolerating oxybutynin. It is making her anxiety worse. She previously tolerated Myrbetriq, so we sent that in instead. Assessment & Plan (09/08/2020 4:00 PM CDT): She requested a referral back to Dr. Lozano for a follow up. Assessment & Plan (04/01/2019 3:34 PM CONTINUITY READER): She has an overactive bladder as well as stress incontinence. She had a urethral sling a little over one year ago. She sees Dr. Evan Lozano as needed. He has her on oxybutynin. She has urinary frequency, but no dysuria or hematuria. Continue same. Raynaud's disease without gangrene 08/22/2017 Overview (03/21/2019): On nifedipine. Assessment & Plan (09/08/2020 3:50 PM CDT): Her applications programmer decreased the dose of nifedipine to 30 mg daily. Continue same. Chronic pain 05/06/2016 Overview (03/20/2019): From [facility]. Assessment & Plan (04/15/2023 2:28 PM CONTINUITY READER): She takes hydrocodone for more severe pain [...] symptoms that prompted a visit to the [facility] ER. . She had chest pain [...] same. Assessment & Plan (04/03/2021 5:10 PM CONTINUITY READER): She sees Dr. Crowley. Her most recent [...] well. Assessment & Plan (03/21/2019 11:26 AM CONTINUITY READER): In addition to her back, she has [...] PM CDT): She was seen in the [facility] ER recently for abdominal pain and [...] sent. Assessment & Plan (03/21/2019 11:27 AM CONTINUITY READER): She is diagnosed with fibromyalgia. She sees [...] finances. Assessment & Plan (04/15/2023 2:18 PM CONTINUITY READER): She has a lot of anxiety as [...] alternatives. Assessment & Plan (04/03/2021 5:08 PM CONTINUITY READER): She has been seeing Dr. Katz for [...] today. Assessment & Plan (04/01/2019 3:36 PM CONTINUITY READER): She had a very traumatic upbringing. Her [...] does have a psychiatrist, Dr. Katz, in [place]. She is on several medications to help control her mood and other psychiatric issues. She will keep followups with Dr. Katz. Allergic rhinitis 08/23/1999 Overview (06/28/2020): Has been taking singular for years for her allergies. Assessment & Plan (09/08/2020 3:53 PM CDT): She continues on Singulair. No new concerns reported. Lumbago 08/22/1994 Overview (08/12/2023): Started after erinn steen. Evaluated by neurosurgery, Dr. Heidy Kenny in about [phone]. No surgery recommended. Assessment & Plan (08/25/2023 [...] bladder. Assessment & Plan (04/01/2019 3:32 PM CONTINUITY READER): She sees Dr. Westbrook for pain management. [...] same. Assessment & Plan (04/03/2021 5:12 PM CONTINUITY READER): She has DuoNebs and a canister albuterol [...] same. Assessment & Plan (02/12/2020 3:38 PM CONTINUITY READER): Patient is reporting increased congestion and chest [...] asthma. Assessment & Plan (03/21/2019 11:28 AM CONTINUITY READER): She has had mild asthma with seasonal [...] note. Assessment & Plan (04/12/2021 4:37 PM CONTINUITY READER): She called not too long ago with [...] before her surgery, either ordered by her applications programmer or ordered by Dr. Walton so we can review them. Likewise for any EKG that is ordered. COVID-19 03/24/2020 05/05/2022 Overview (05/05/2022): Postive test. Followed by a month or more of post Covid congestion, saw BENITO Reed. Assessment & Plan (03/21/2021 12:17 PM CONTINUITY READER): Patient tested positive for covid on Monday [...] Reed. Assessment & Plan (02/12/2020 3:36 PM CONTINUITY READER): Patient has congestion, sinus pressure and ear [...] quadrant pain 09/10/2013 Overview (03/20/2019): Details lacking. 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 Milton, at time of septoplasty. SEPTOPLASTY 02/22/1998 - 02/21/1999 Deviated septum, Dr. Sherman Milton, [facility]. TURBINOPLASTY 02/22/1998 - 02/21/1999 Dr. Milton, at time of septoplasty. BLADDER SUSPENSION 11/22/2017 - 12/22/2017 Dr. Lozano, [facility] outpatient surgery. LARYNX SURGERY 02/22/2009 - 02/21/2010 Dr. Milton, [facility] and outpatient surgery, multiple proceedures, most recently 2009 for vocal cord nodules. SHOULDER SURGERY 02/19/2018 Left Distal clavicle resection, acromioplasty, rotator cuff repair, labral repair, tendon repair. [facility] PAP SMEAR WITH HPV 02/02/2019 Normal/negative, See scanned reports. DILATION AND CURETTAGE OF UTERUS 12/09/2011 Benign proliferative endometrium, see scanned report. MAMMOGRAPHY 02/18/2020 Bilateral Negative, [facility]. SHOULDER SURGERY 10/17/2020 Left Left shoulder arthroscopy, distal claviculectomy including distal articular surface, rotator cuff repair, Dr. Walton, [facility]. SHOULDER ARTHROCENTESIS 10/14/2021 Bilateral Subacromial bursa injections, orthopedics. MAMMOGRAPHY 06/24/2022 Bilateral Negative, [facility]. SHOULDER ARTHROCENTESIS 03/01/2023 Bilateral Subacromial bursa steroid injections, Carl Alicea PA, orthopedics. Medical History Medical History Date Comments Primary fibromyalgia syndrome fi bromyalgia Asthma Asthma Anxiety disorder Anxiety Hx Other Medical radiofrequency x3 times left lumbar side, with fax Arthritis RA Depression Anxiety Fatigue PTSD (post-traumatic stress disorder) OCD (obsessive compulsive disorder) ADD (attention deficit disorder) Left lower quadrant pain 09/10/2013 Details lacking. Cervicovaginal cytology spec imen unsatisfactory 02/25/2019 [facility], details lacking. Eye inflammation Details lacking . Chronic pain Epidural injecti ons, neck, hips, low back, details lacking. Vocal cord nodule Nodule removed vocal chord x3, details lacking. Low back pain Neck pain Mild intermittent asthma wit hout complication 08/23/1979 Seasonal and with URI sympto ms. Has a rescue inhaler and ipratropium nebulizer for prn use. Major depressive disorder, r ecurrent, moderate (HCC) 05/06/2016 From [facility]. Generalized anxiety disorder 05/06/2016 Fro m [facility]. Viral URI 02/12/2020 See office note, BENITO Reed. Osteopenia Gastric reflux Peripheral neuropathy Rheumatoid arthritis (HCC) Migraines Fibromyalgia Raynaud phenomenon GERD (gastroesophageal reflu x disease) Covid-19 03/24/2019 Details lacking. Acute otitis media, left 03/25/2021 Rx Augm entin, follow up exam normal. See office note. Covid-19 03/24/2020 Postive test. Fo llowed by a month or more of post Covid congestion, saw BENITO Reed. Tear of left rotator cuff 09/15/2020 Left s cyndy arthroscopy, distal claviculectomy including distal articular surface, rotator cuff repair on 10/17/2020, Dr. Walton, [facility]. Family History Medical History Relation Name Comments Anxiety disorder Father Chronic Pain Father Depression Father Hypertension Father Chronic Pain Mother Depression Mother Diabetes Mother Hypertension Mother Stroke Other 1 Family history of Stroke; Asthma Other 2 Family history of Asthma; Heart disease Other 2 Cancer Other 3 Breast and khadijah l, 2nd degree relatives. Diabetes Other 3 Hypertension Other 4 Family history of Hypertension; Osteoporosis Other 5 Family history of Osteoporosis; Relation Name Status Comments Father Mother Other 1 Other 2 Other 3 Other 4 Other 5 Social History Tobacco Use Types Packs/Day Years [...] on file 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 CONTINUITY READER Gender Identity Not on file Sexual Orientation Not on file Obstetrics History Last Filed Vital Signs Vital Sign Reading [...] 08/12/2023 9:33 AM CDT Plan of Treatment Health Maintenance Due Date Last Done Comments Colon Cancer Screening-Colonoscopy 1972 Hepatitis C Screening 1972 DTaP/Tdap/Td Vaccine (1 - Tdap) 02/05/1983 Hepatitis B Screening 02/05/1990 Zoster Vaccine (1 of 2) 02/05/1991 Cervical Cancer Screening 02/03/2020 02/02/2019 Covid-19 Vaccine (3 - Pfizer risk series) 07/01/2020 06/03/2020, 05/13/2020 Regular Well Visit/Exam 18-64 05/08/2023, 04/03/2021, 08/22/2020, Additional history exists Breast Cancer Screening-Mammogram 06/25/2023 023, 02/21/2020 Influenza Vaccine (Season Ended) 2024 12/25/2022, 05/07/2022, 04/03/2021, Additional history exists Depression Screening 05/12/2025 05/12/2024, 05/12/2024, 11/04/2023, Additional history exists Pneumococcal vaccine <65 Completed 05/07/2022, 07/0 02/2020 Goals Goal Patient Goal Type Associated Problems Recent Progress Patient-Stated? Author [facility] On track(2021 2:25 PM CDT) Roselyn Lombardi, JESSICA Note: Patient will establish a comfort-function goal and identify the pain level that will allow the patient to perform desired activities and achieve an acceptable quality of life. CCM Chronic Pain Care Plan Chronic Care Management Ruthann Navarro, JESSICA Note: Problem: Chronic Pain Goals: 1. Minimize further functional decline 2. Maximize quality of life 3. Control pain Strategies: - Activity/exercise program recommendation - Conservative stepwise pain medicine strategy with multi-disciplinary approach - Recommend healthy lifestyle strategies and compensatory methods as needed Medical Devices Implanted Type Area Cribbing Setter Device Identifier Shelf Expiration Date Model / Serial / Lot [employer] 2504-1 Regenerate Tendon Lakeside Suture - [id number] Implanted:Qty: 1 on 10/17/2020 by Vince Walton MD at [facility] Left: Shoulder [employer] 02/13/2023 2504-1 / / [id number] [employer]/Or tho 4565 Implant Medium Arthroscopic Bioinductive W/ Delivery Device - [id number] Implanted:Qty: 1 on 10/17/2020 by Vince Walton MD at [facility] Left: Shoulder [employer] tho 04/12/2021 4565 / / [id number] [employer]/Or tho 4403 Lakeside Bone With Arthroscopic Delivery System Advanced - [id number] Implanted:Qty: 1 on 10/17/2020 by Vince Walton MD at [facility] Left: Shoulder [employer]/Or tho 12/28/2022 [id number] / / [id number] Procedures Procedure Name Priority Date/Time Associated Diagnosis Comments MAMMOGRAPHY Routine 06/24/2022 PAP SMEAR WITH HPV Routine 02/02/2019 from Last 3 Months or Most Recently Relevant to Health Maintenance Results * MAMMOGRAPHY (06/24/2022) Mammography Normal Impressions Clinton Ramirez MD - 06/24/2022 Negative, [facility]. Narrative Clinton Ramirez MD - 06/24/2022 See scanned report. Clinton Ramirez MD HEALTH MAINTENANCE Final Resu lt * PAP SMEAR WITH HPV (02/02/2019) Pap smear Normal Comment:See scanned result. us Naomasa Hase DO HEALTH MAINTENANCE Final Result from Last 3 Months or Most Recently Relevant to Health Maintenance Insurance [employer] MEDICARE GOLD [employer] ADVANTAGE CHOICE PPO [employer] ADV[employer] CHOICE PPO Care Teams Sports Team Manager Relationship Specialty Start Date End Date Clinton Ramirez MD [address] [place], [place] [address] [address] PCP - General Infectious Diseases 05/09/20 Raulito Weathers, RN Registered Nurse 07/22/17 Sherman Milton MD [address] [facility] [address] [place] [address] Consulting Physician Otolaryngology 03/21/19 Ilan Olsen MD [address] [facility] [address] [place] [address] Consulting Physician Otolaryngology 03/21/19 Ganesh Hess MD [address] [place] [address] Consulting Physician Obstetrics and Gynecology 03/21/19 Evan Lozano MD [address] [place] [address] Consulting Physician Urology 12/06/17 Nicola Méndez DO [address] [facility] [id number] [place] [address] Referral Agent Obstetrics and Gynecology 02/02/19 Juventino Keith MD [address] [place] [address] Referring Physician Rheumatology 05/09/20 Vince Walton MD [address] [facility] [address] [facility] [address] [place] [address] Surgeon Orthopedic Surgery 10/03/20 Carl Alicea PA [address] [facility] [address] [place] [address] Physician Factory Worker Orthopedic Surgery 10/17/20 Heidy Kenny MD [address] [facility] [address] [facility] [address] [place] [address] Consulting Physician Neurosurgery 07/13/22 Elijah Alas MD [address] [facility] [address] [facility] [address] [place] [address] Consulting Physician Anesthesiology 04/15/23
--- OUTSIDE RECORDS SUMMARY | 2024-06-09 12:39 | XMS_ITS | Encounter Summary ---
Author Organization [facility] Address [address] [place] [address] Care Team Providers Care Special Equipment Technician Name Role Phone Unavailable Primary Care Provider Unavailabl e Encounter Details Date Type Department Care Team (Latest Contact Info) Description 04/19/2006 Outpatient Historical [facility]CILL[facility] Sherman Milton MD NO ADDRESS ON FILE Other Voice Disturbance (Primary Dx) Social History Tobacco Use Types Packs/Day Years Used Date Smoking Tobacco: Never Assessed Comments Unknown Sex and Gender Information Value Date Recorded Sex Assigned at Not on file Legal Sex Female 2:41 AM MANAGER OF TRANSPORTATION Gender Identity Not on file Sexual Orientation Not on file documented as of this encounter Plan of Treatment Not on file documented as of this encounter Visit Diagnoses Diagnosis Other voice and resonance disorders- Primary documented in this encounter
--- OUTSIDE RECORDS SUMMARY | 2024-06-09 12:39 | XMS_ITS | Encounter Summary ---
Author Organization [facility] Address 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
--- OUTSIDE RECORDS SUMMARY | 2024-06-09 12:39 | XMS_ITS | Encounter Summary ---
Author Organization [facility] Address [address] [place] [address] Care Team Providers Care Meter And Service Line Inspector Name Role Phone Unavailable Primary Care Provider Unavailabl e Encounter Details Date Type Department Care Team (Late st Contact Info) Description 06/22/2006 Outpatient Historical [facility] Sherman Milton MD NO ADDRESS ON FILE Social History Tobacco Use Types Packs/Day Years Used Date Smoking Tobacco: Never Assessed Comments Unknown Sex and Gender Information Value Date Recorded Sex Assigned at Not on file Legal Sex Female 2:41 AM CRIMINAL JUSTICE FACULTY Gender Identity Not on file Sexual Orientation Not on file documented as of this encounter Plan of Treatment Not on file documented as of this encounter Visit Diagnoses Not on filedocumented in this encounter
--- OUTSIDE RECORDS SUMMARY | 2024-06-09 12:39 | XMS_ITS | Clinical Summary ---
Author Organization [facility] Address [address] [address] Care Team Providers Care Cotton Picking Machine Operator Name Role Phone Florentino Bo MD Primary Care Provider [phone] Source Comments [facility] [employer],non-owned Affiliates and Associated Physician Practices is amultiple site organization consisting of ambulatory clinics and hospital sitesin [place], [place], [place] and [place]. This disclosure is being madepursuant to the Care Everywhere program and may not contain all information available regarding this patient. Last updated 17.[facility] [employer] Allergies No known active allergies Medications * Be aware that medications may not be up to date on this document. Alwaysverify current medications with the patient. hydrocodone-eusebia taminophen (NORCO) 7.5-325 MG tablet Take 1 Tab by mouth every 4 hours as needed for Pain Active Pregabalin (LYRICA PO) Active Montelukast Sodium (SINGULAIR PO) Activ e lidocaine (LIDODERM) 5 % patch Apply 1 Patch to skin once daily Active cyclobenzaprine (FLEXERIL) 10 MG tablet Take 10 mg by mouth 3 times daily as needed for Muscle Spasms Active Diclofenac Sodium (VOLTAREN PO) Active Nebulizer Use as directed Active FLUOXETINE HCL PO Active traMADol (ULTRAM) 50 MG tablet Take 50 mg by mouth every 6 hours as needed for Pain Active Zaleplon (SONATA PO) Active Multiple Vitamins-Minera ls (MULTIVITAMIN & MINERAL PO) Active Acetaminophen (TYLENOL PO) Active Active Problems No known active problems Family History Medical History Relation Name Comments Arthritis - Rheumatoid Brother 2 Arthritis - Rheumatoid Father Asthma Father CAD (Coronary Artery Disease) Father Hypercholesterolemia Father Hypertension Father Stroke Father Arthritis - Osteo Mother Arthritis - Rheumatoid Mother Asthma Mother Hypercholesterolemia Mother Hypertension Mother Arthritis - Rheumatoid Sister 2 Relation Name Status Comments Brother 1 Alive Brother 2 Father Alive Mother Alive Sister 1 Alive Sister 2 Social History Tobacco Use Types Packs/Day Years Used Date Smoking Tobacco: Never Alcohol Use Standard Drinks/Week Comments Yes 0 (1 standard drink = 0.6 oz pur e alcohol) Comments Unknown Sex and Gender Information Value Date Recorded Sex Assigned at Not on file Legal Sex Female 2:56 PM CDT Gender Identity Not on file Sexual Orientation Not on file 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 Not on file Not on file Last Filed Vital Signs Vital Sign Reading Time Taken Comments Blood Pressure 115/79 11/26/2016 2:02 PM CDT Pulse 89 11/26/2016 2:02 PM CDT Temperature 36.8 C (98.3 F) 05/19/2016 12:56 PM CDT Respiratory Rate 16 05/19/2016 12:56 PM CDT Oxygen Saturation - - Inhaled Oxygen Concentration - - Weight 61.2 kg (135 lb) 11/26/2016 2:02 PM CDT Height 160 cm (5' 3 ) 11/26/2016 2:02 PM CDT Body Mass Index 23.91 11/26/2016 2:02 PM CDT Plan of Treatment Health Maintenance Due Date Last Done Comments COLOGUARD (AGES 45-75) - COL ON CA SCREENING 1972 COLON MONITORING 1972 COLONOSCOPY - COLON CA SCREENING 1972 CT COLONOGRAPHY - COLON CA SCREENING 1972 Colorectal Cancer Screening 1972 FIT - COLON CA SCREENING 1972 FLEX SIG - COLON CA SCREENING 1972 LIPID TESTING 1972 MAMMOGRAM 1972 PAP SMEAR 1972 HIV SCREENING 02/05/1987 HEPATITIS C SCREENING 02/01/1990 DTAP/TDAP/TD VACCINES (1 - Tdap) 02/05/1991 HEPATITIS B VACCINE (1 of 3 - 19+ 3-dose series) 02/05/1991 PNEUMOCOCCAL VACCINE 50+ (1 of 1 - PCV) 02/05/2022 ZOSTER VACCINE (1 of 2) 02/05/2022 COVID-19 VACCINE (1 - 2023-2 5 season) 2023 DEPRESSION SCREENING 02/23/2024 INFLUENZA VACCINE (Season Ended) 2024 HIB VACCINE Aged Out No longer eligi ble based on patient's age to complete this topic HPV VACCINE Aged Out No longer eligi ble based on patient's age to complete this topic MENINGOCOCCAL (Group B) VACC INE SHARED DECISION-MAKING Aged Out No longer eligibl e based on patient's age to complete this topic MENINGOCOCCAL GROUPS A/C/Y/W VACCINE Aged Out No longer eligible b ased on patient's age to complete this topic Insurance ANTHEM ANTHEM Care Teams Cotton Picking Machine Operator Relationship Specialty Start Date End Date Florentino Bo MD [address] [place] [address] PCP - General Internal Medicine 10/15/14
[2024-06-09 13:13] LABS: Basophils Percent Auto 0.8 % (0.2-1.2); Eosinophils Percent Auto 0.8 % (0-4.4); Hematocrit 39.7 % (37.0-47.0); Hemoglobin 12.8 g/dL (12.0-15.0); Lymphocytes Percent Auto 51.2 % (18.3-44.2); Mean Corpuscular HGB Conc 32.2 g/dl (32-36); Mean Corpuscular Hemoglobin 30.3 pg (26-34); Mean Corpuscular Volume 94.1 fl (80-100); Mean Platelet Volume 9.8 fl (7.4-10.4); Monocytes Absolute Auto 0.4 K/mm3 (0.1-0.6); Neutrophils Absolute Auto 1.5 K/mm3 (1.3-6.7); Neutrophils Percent Auto 38.2 % (45.5-73.1); Platelet Count Result 251 k/mm3 (150-375); Red Blood Count 4.22 M/mm3 (4.2-5.4); Red Cell Distribution Width 13.1 % (11.5-14.5); White Blood Count 3.9 K/mm3 (4.5-10.0)
[2024-06-09 13:27] LABS: Alanine Aminotransferase 15 U/L (6-35); Albumin Level 4.8 g/dL (3.5-5.1); Alkaline Phosphatase 60 U/L (38-126); Anion Gap 9 mmol/L (4-12); Aspartate Amino Transferase 25 U/L (14-36); Bilirubin,Total 0.6 mg/dL (0.2-1.3); Blood Urea Nitrogen 16 mg/dL (7-17); CRP < 0.5 mg/dL (<1.0); Calcium 9.4 mg/dL (8.4-10.2); Carbon Dioxide 26 mmol/L (22-30); Chloride 104 mmol/L (98-107); Estimated Glomerular Filt Rate > 60; Glucose 100 mg/dL (65-110); Phosphorus 3.8 mg/dL (2.5-4.5); Potassium 4.1 mmol/L (3.4-5.0); Sodium 139 mmol/L (137-145)
[2024-06-09 14:22] LABS: Add Urine Microscopic? YES; Appearance Urine Clear (Clear); Bacteria Urine None Seen /hpf; Bilirubin Urine Negative (Negative); Blood Urine Negative (Negative); Color Urine Yellow (Yellow); Glucose Urine UA Negative (Negative); Ketones Urine Negative (Negative); Leukocyte Esterase Ur 1+ LEU/UL (Negative); Need Manual Microscopic Reviewed; Nitrate Urine Negative (Negative); Non Pathogenic Casts 0-2; Protein Urine Negative (Negative); Specific Grav Ur 1.015 (1.001-1.035); Squamous Epithelial Cell Urine Occasional /hpf (Few); Urobilinogen Urine 0.2 mg/dL (<2.0); WBC Urine 0-5 /hpf (0-3); pH Urine 7.5 (5.0-9.0)
[2024-06-09 15:07] LABS: Erythrocyte Sedimentation Rate 18 mm/hr (0-20)
[2024-06-13 12:09] LABS: NIL 0.01 IU/mL; Quantiferon TB Plus, 1T NEGATIVE (NEGATIVE); TB2-NIL 0.01 IU/mL
== END 2024-06-09 12:32 | disposition home or self-care (01) ==
LOC: ANHLAB 12:35
PROVIDERS: PCP Internal Medicine Infectious Disease; Visit Provider Internal Medicine
DX: M10.9 Gout, unspecified (principal); M79.7 Fibromyalgia
CPT/HCPCS: 36415; 80053; 81001; 84100; 85025; 85652; 86140; 86480

== ENCOUNTER 2024-06-19 15:56 | Outpatient (CLI) | payer OTHER, SELFPAY ==
[2024-06-19 16:43] LABS: Hematocrit 40.8 % (37.0-47.0); Hemoglobin 12.7 g/dL (12.0-15.0); Mean Corpuscular HGB Conc 31.1 g/dl (32-36); Mean Corpuscular Volume 96.2 fl (80-100); Mean Platelet Volume 9.9 fl (7.4-10.4); Platelet Count Result 250 k/mm3 (150-375); Red Blood Count 4.24 M/mm3 (4.2-5.4); Red Cell Distribution Width 12.9 % (11.5-14.5); White Blood Count 6.1 K/mm3 (4.5-10.0)
[2024-06-19 16:48] LABS: Add Urine Microscopic? YES; Appearance Urine Clear (Clear); Bacteria Urine Rare /hpf; Bilirubin Urine Negative (Negative); Blood Urine Negative (Negative); Color Urine Yellow (Yellow); Glucose Urine UA Negative (Negative); Ketones Urine Negative (Negative); Leukocyte Esterase Ur 3+ LEU/UL (Negative); Nitrate Urine Negative (Negative); Non Pathogenic Casts 0-2; Protein Urine Negative (Negative); Specific Grav Ur 1.011 (1.001-1.035); Squamous Epithelial Cell Urine Occasional /hpf (Few); Urobilinogen Urine 0.2 mg/dL (<2.0)
[2024-06-19 17:02] LABS: Albumin Level 4.8 g/dL (3.5-5.1); Anion Gap 8 mmol/L (4-12); Blood Urea Nitrogen 17 mg/dL (7-17); CRP < 0.5 mg/dL (<1.0); Calcium 9.3 mg/dL (8.4-10.2); Carbon Dioxide 30 mmol/L (22-30); Chloride 103 mmol/L (98-107); Estimated Glomerular Filt Rate > 60; Glucose 107 mg/dL (65-110); Phosphorus 4.6 mg/dL (2.5-4.5); Potassium 4.3 mmol/L (3.4-5.0); Sodium 141 mmol/L (137-145)
[2024-06-19 17:25] LABS: Erythrocyte Sedimentation Rate 15 mm/hr (0-20)
--- OUTSIDE RECORDS SUMMARY | 2024-06-19 17:58 | XMS_ITS | Encounter Summary ---
Author Organization [facility] Address [address] [place] [address] Phone Care Team Providers Care Pineapple Plantation Manager Name Role Phone Raulito Weathers RN Unavailable Unavailabl e Clinton Ramirez MD Primary Care Provider [phone] Dagoberto Katz MD Unavailable [phone] Sherman Milton MD Unavailable [phone] Ilan Olsen MD Unavailable [phone] Ganesh Hess MD Unavailable [phone] Evan Lozano MD Unavailable [phone] Nicola Méndez DO Unavailable Sherman Milton MD Unavailable [phone] Ilan Crowley MD Unavailable [phone] Clinton Ramirez MD Primary Care Provider [phone] Juventino Keith MD Unavailable [phone] Vince Walton MD Unavailable [phone] Carl Alicea Unavailable [phone] Heidy Kenny MD Unavailable [phone] Elijah Alas MD Unavailable [phone] Elijah Alas MD Unavailable [phone] Encounter Details Date Type Department Care Team (Late st Contact Info) Description 02/12/2020 Orders Only [facility] [address] [place] [address] Scanning, Provider Social History Tobacco Use Types Packs/Day Years Used Date Smoking Tobacco: Never Smokeless Tobacco: Never Alcohol Use Standard Drinks/Week Comments Yes 0 (1 standard drink = 0.6 oz pur e alcohol) PHQ-2 Answer Date Recorded PHQ-2 Score 5 12/22/2019 Comments Unknown Sex and Gender Information Value Date Recorded Sex Assigned at Not on file 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 Gender Identity Not on file Sexual Orientation [...] on filedocumented in this encounter Care Teams Pineapple Plantation Manager Relationship Specialty Start Date End Date Clinton Ramirez MD [address] [place] [address] PCP - General 03/01/19 05/08/20 Clinton Ramirez MD [address] [place] [address] PCP - General Infectious Diseases 05/09/20 Raulito Weathers, JESSICA Registered Nurse 07/22/17 Dagoberto Katz MD [address] [place] [address] [place] [address] Consulting Physician Psychiatry 08/23/99 08/11/23 Sherman Milton MD [address] [place] [address] Consulting Physician Otolaryngology 03/21/19 Ilan Olsen MD [address] [place] [address] Consulting Physician Otolaryngology 03/21/19 Ganesh Hess MD [address] [place] [address] Consulting Physician Obstetrics and Gynecology 03/21/19 Evan Lozano MD [address] [place] [address] Consulting Physician Urology 12/06/17 Nicola Méndez DO [id number] [place] [address] Fulling Mill Operator Obstetrics and Gynecology 02/02/19 Sherman Milton MD [address] [place] [address] Consulting Physician Otolaryngology 11/14/19 04/14/23 Ilan Crowley MD [id number] [place] [address] Anesthesiologist Anesthesiology 02/02/20 04/14/23 Juventino Keith MD [address] [place] [address] [id number] [place] [address] Referring Physician Rheumatology 05/09/20 Vince Walton MD [address] [facility] [facility] [address] [place] [address] Surgeon Orthopedic Surgery 10/03/20 Carl Alicea PA [address] [facility] [place] [address] Physician Brand Advisor Orthopedic Surgery 10/17/20 Heidy Kenny MD [address] [facility] [address] [facility] [address] [place] [address] Consulting Physician Neurosurgery 07/13/22 Elijah Alas MD [address] [facility] [address] [facility] [address] [place] [address] Consulting Physician Anesthesiology 04/15/23 Elijah Alas MD [address] [facility] [place] [address] Consulting Physician Anesthesiology 08/12/23 08/12/23 documented as of this encounter
--- OUTSIDE RECORDS SUMMARY | 2024-06-19 17:58 | XMS_ITS ---
Author Organization [facility] [place] ([address]) Address [address] [place] [address] Care Team Providers Care Medical Accounting Clerk Name Role Phone Clinton Ramirez Primary Care Provider UnavailDr. Fredrick Landaverde Unavailable [phone] ZZ-Migration, Provider Unavailable Unavailab le Allergies Allergen (clinical drug ingredient) Drug/Non Drug Allergy documented on EMR Reaction Allergy Type Onset Date Status paroxetine Paxil rash Drug Allergy Active REASON FOR VISIT [facility] To [facility] Conversion Encounter Medications Medication SIG (Take, Route, [...] Active Encounters Encounter Location Date Provider Diagnosis [address] [address] 08/07/2023 Provider ZZ-Migration Plan Of Treatment No Information Progress Notes * Vernell VALADEZOB:1970 (7 2 yo F)Acc No.[id number]:08/07/2023 Patient: Bryce NOGUERAn Provider: Link Coleman :1970 A ge:53 Y S ex:Female Date:08/07/2023 Address:[address] Pcp:Clinton Ramirez Subjective: * Chief Complaints: * 1 . Mult[facility] To Med[facility]pan Conversion Encounter. * Medical History: * Medications: [...] * Electronic signature of Barbara CONTRERAS-Migration on 06/19/2024 at 05:58 PM CDT Sign off status: Pending * Provider: Link weeks Migration Date: 08/07/2023 Generated for Zain villa/Aj/Jozef on: 06/19/2024 05:58 PM CDT
--- OUTSIDE RECORDS SUMMARY | 2024-06-19 17:58 | XMS_ITS | Encounter Summary ---
Author Organization [facility] Address [address] [place] [address] Phone Care Team Providers Care Maritime Pilot Name Role Phone Raulito Weathers RN Unavailable Unavailabl e Clinton Ramirez MD Primary Care Provider [phone] Dagoberto Katz MD Unavailable [phone] Sherman Milton MD Unavailable [phone] Ilan Olsen MD Unavailable [phone] Ganesh Hess MD Unavailable [phone] Evan Lozano MD Unavailable [phone] Nicola Méndez DO Unavailable Sherman Milton MD Unavailable [phone] Ilan Crowley MD Unavailable [phone] Clinton Ramirez MD Primary Care Provider [phone] Juventino Keith MD Unavailable [phone] Vince Walton MD Unavailable [phone] Carl Alicea Unavailable [phone] Heidy Kenny MD Unavailable [phone] Elijah Alas MD Unavailable [phone] Elijah Alas MD Unavailable [phone] Encounter Details Date Type Department Care Team (Late st Contact Info) Description 02/21/2020 Orders Only [facility] [address] [place] [address] Scanning, Provider Social History Tobacco Use Types Packs/Day Years Used Date Smoking Tobacco: Never Smokeless Tobacco: Never Alcohol Use Standard Drinks/Week Comments Yes 0 (1 standard drink = 0.6 oz pur e alcohol) PHQ-2 Answer Date Recorded PHQ-2 Score 5 12/22/2019 Comments Unknown Sex and Gender Information Value Date Recorded Sex Assigned at Not on file 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 ROUSTABOUT HAND Gender Identity Not on file Sexual Orientation [...] on filedocumented in this encounter Care Teams Maritime Pilot Relationship Specialty Start Date End Date Clinton Ramirez MD [address] [place] [address] PCP - General 03/01/19 05/08/20 Clinton Ramirez MD [address] [place] [address] PCP - General Infectious Diseases 05/09/20 Raulito Weathers, JESSICA Registered Nurse 07/22/17 Dagoberto Katz MD [address] [place] [address] [place] [address] Consulting Physician Psychiatry 08/23/99 08/11/23 Sherman Milton MD [address] [place] [address] Consulting Physician Otolaryngology 03/21/19 Ilan Olsen MD [address] [place] [address] Consulting Physician Otolaryngology 03/21/19 Ganesh Hess MD [address] [place] [address] Consulting Physician Obstetrics and Gynecology 03/21/19 Evan Lozano MD [address] [place] [address] Consulting Physician Urology 12/06/17 Nicola Méndez DO [id number] [place] [address] Staff Genetic Counselor Obstetrics and Gynecology 02/02/19 Sherman Milton MD [address] [place] [address] Consulting Physician Otolaryngology 11/14/19 04/14/23 Ilan Crowley MD [id number] [place] [address] Anesthesiologist Anesthesiology 02/02/20 04/14/23 Juventino Keith MD [address] [facility] [id number] [place] [address] Referring Physician Rheumatology 05/09/20 Vince Walton MD [address] [facility] [address] [facility] [address] [place] [address] Surgeon Orthopedic Surgery 10/03/20 Carl Alicea PA [address] [facility] [address] [place] [address] Physician Woodworking Machinist Orthopedic Surgery 10/17/20 Heidy Kenny MD [facility] [address] [place] [address] Consulting Physician Neurosurgery 07/13/22 Elijah Alas MD 3 [facility] [address] [facility] [address] [place] [address] Consulting Physician Anesthesiology 04/15/23 Elijah Alas MD [address] [facility] [address] [place] [address] Consulting Physician Anesthesiology 08/12/23 08/12/23 documented as of this encounter
--- OUTSIDE RECORDS SUMMARY | 2024-06-19 17:59 | XMS_ITS | Encounter Summary ---
Author Organization [employer] Address [address] [place] [address] Care Team Providers Care Breaker Unit Assembler Name Role Phone Unavailable Primary Care Provider Unavailabl e Encounter Details Date Type Department Care Team (Latest Contact Info) Description 05/21/2006 Outpatient Historical [facility] ANCILLARY SERVICES Sherman Milton MD NO ADDRESS ON FILE Other Voice Disturbance (Primary Dx) Social History Tobacco Use Types Packs/Day Years Used Date Smoking Tobacco: Never Assessed Comments Unknown Sex and Gender Information Value Date Recorded Sex Assigned at Not on file Legal Sex Female 2:41 AM ACUTE CARE SURGEON Gender Identity Not on file Sexual Orientation Not on file documented as of this encounter Plan of Treatment Not on file documented as of this encounter Visit Diagnoses Diagnosis Other voice and resonance disorders- Primary documented in this encounter
--- OUTSIDE RECORDS SUMMARY | 2024-06-19 17:59 | XMS_ITS | Encounter Summary ---
Author Organization [facility] Address [address] [place] [address] Phone Care Team Providers Care Laborer Cheesemaking Name Role Phone Raulito Weathers RN Unavailable Unavailabl e Dagoberto Katz MD Unavailable [phone] Sherman Milton MD Unavailable Ilan Olsen MD Unavailable [phone] Ganesh Hess MD Unavailable [phone] Evan Lozano MD Unavailable [phone] Pebbles Méndezgreciabrandy ROMERO Unavailable Sherman Milton MD Unavailable Ilan Crowley MD Unavailable [phone] Clinton Ramirez MD Primary Care Provider [phone] Juventino Keith MD Unavailable [phone] Vince Walton MD Unavailable [phone] Carl Alicea Unavailable [phone] Heidy Kenny MD Unavailable [phone] Elijah Alas MD Unavailable [phone] Elijah Alas MD Unavailable [phone] Encounter Details Date Type Department Care Team (Late st Contact Info) Description 05/29/2022 Orders Only [facility] [address] [place] [address] Clinton Ramirez MD [address] [place] [address] Social History Tobacco Use Types Packs/Day Years [...] on file 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 DIGITAL MARKETING PROGRAM 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 Gender Identity Not on file Sexual Orientation [...] on filedocumented in this encounter Care Teams Laborer Cheesemaking Relationship Specialty Start Date End Date Clinton Ramirez MD [address] [place] [address] PCP - General Infectious Diseases 05/09/20 Raulito Weathers, RN Registered Nurse 07/22/17 Dagoberto Katz MD [address] [place] [address] [place] [address] Consulting Physician Psychiatry 08/23/99 08/11/23 Sherman Milton MD [address] [place] [address] Consulting Physician Otolaryngology 03/21/19 Ilan Olsen MD [address] [place], [place] [address] Consulting Physician Otolaryngology 03/21/19 Ganesh Hess MD [address] [place] [address] Consulting Physician Obstetrics and Gynecology 03/21/19 Evan Lozano MD [address] [place] [address] Consulting Physician Urology 12/06/17 Nicola Méndez DO [id number] [place] [address] Procurement Services Manager Obstetrics and Gynecology 02/02/19 Sherman Milton MD [address] [facility] [address] [place] [address] Consulting Physician Otolaryngology 11/14/19 04/14/23 Ilan Crowley MD [address] [place] [address] [id number] [place] [address] Anesthesiologist Anesthesiology 02/02/20 04/14/23 Juventino Keith MD [address] [place] [address] Referring Physician Rheumatology 05/09/20 Vince Walton MD [address] [facility] [address] [facility] [address] [place] [address] Surgeon Orthopedic Surgery 10/03/20 Carl Alicea PA [address] [facility] [address] [place] [address] Physician Percussion Instrument Tuner Orthopedic Surgery 10/17/20 Heidy Kenny MD 3 [facility] [address] [facility] [address] [place] [address] Consulting Physician Neurosurgery 07/13/22 Elijah Alas MD 3 [facility] [address] [facility] [address] [place] [address] Consulting Physician Anesthesiology 04/15/23 Elijah Alas MD [address] [facility] [address] [place] [address] Consulting Physician Anesthesiology 08/12/23 08/12/23 documented as of this encounter
--- OUTSIDE RECORDS SUMMARY | 2024-06-19 17:59 | XMS_ITS | Encounter Summary ---
Author Organization [facility] Address [address] [place] [address] Phone Care Team Providers Care Sensor Technician Name Role Phone Florentino Bo MD Primary Care Provider [phone] Raulito Weathers RN Unavailable Unavailabl e Clinton Ramirez MD Primary Care Provider [phone] Ayaz Westbrook MD Unavailable [phone] Dagoberto Katz MD Unavailable [phone] Lucas Rachel MD Unavailable [phone] Sherman Milton MD Unavailable Ilan Olsen MD Unavailable [phone] Ganesh Hess MD Unavailable [phone] Evan Lozano MD Unavailable [phone] Nicola Méndez DO Unavailable Sherman Milton MD Unavailable Ilan Crowley MD Unavailable [phone] Clinton Ramirez MD Primary Care Provider [phone] Juventino Keith MD Unavailable [phone] Vince Walton MD Unavailable [phone] Carl Alicea Unavailable [phone] Heidy Kenny MD Unavailable Elijah Alas MD Unavailable Elijah Alas MD Unavailable Encounter Details Date Type Department Care Team (Late st Contact Info) Description 06/11/2017 Orders Only [facility] [address] [place] [address] Scanning, Provider Social History Tobacco Use Types Packs/Day Years Used Date Smoking Tobacco: Never Alcohol Use Standard Drinks/Week Comments No 0 (1 standard drink = 0.6 oz pur e alcohol) Comments Unknown Sex and Gender Information Value Date Recorded Sex Assigned at Not on file 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 CERTIFIED 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 Gender Identity Not on file Sexual Orientation [...] on filedocumented in this encounter Care Teams Sensor Technician Relationship Specialty Start Date End Date Florentino Bo MD [address] [facility] [address] [facility] [address] [place] [address] PCP - General 07/03/11 02/28/19 Clinton Ramirez MD [address] [place] [address] PCP - General 03/01/19 05/08/20 Clinton Ramirez MD [address] [place] [address] PCP - General Infectious Diseases 05/09/20 Raulito Weathers, RN Registered Nurse 07/22/17 Ayaz Westbrook MD [address] [facility] [address] [place] [address] Consulting Physician Pain Management 03/21/19 02/01/20 Dagoberto Katz MD [address] [facility] [place] [address] Consulting Physician Psychiatry 08/23/99 08/11/23 Lucas Rachel MD [address] [facility] [place] [address] Consulting Physician Rheumatology 03/21/19 02/01/20 Sherman Milton MD [address] [facility] [place] [address] [place], [place] [address] Consulting Physician Otolaryngology 03/21/19 Ilan Olsen MD [address] [place], [place] [address] Consulting Physician Otolaryngology 03/21/19 Ganesh Hess MD [address] [place] [address] Consulting Physician Obstetrics and Gynecology 03/21/19 Evan Lozano MD [address] [place] [address] Consulting Physician Urology 12/06/17 Nicola Méndez DO [id number] [place] [address] Co Chairman Obstetrics and Gynecology 02/02/19 Sherman Milton MD [address] [place] [address] Consulting Physician Otolaryngology 11/14/19 04/14/23 Ilan Crowley MD [id number] [place] [address] Anesthesiologist Anesthesiology 02/02/20 04/14/23 Juventino Keith MD [id number] [place], [place] [address] Referring Physician Rheumatology 05/09/20 Vince Walton MD [address] [facility] [address] [facility] [address] [place] [address] Surgeon Orthopedic Surgery 10/03/20 Carl Alicea PA [address] [facility] [address] [place] [address] Physician Education Intern Orthopedic Surgery 10/17/20 Heidy Kenny MD 3 [facility] [address] [place] [address] Consulting Physician Neurosurgery 07/13/22 Elijah Alas MD 3 [facility] [address] [facility] [address] [place] [address] Consulting Physician Anesthesiology 04/15/23 Elijah Alas MD [address] [facility] [address] [place] [address] Consulting Physician Anesthesiology 08/12/23 08/12/23 documented as of this encounter
--- OUTSIDE RECORDS SUMMARY | 2024-06-19 17:59 | XMS_ITS | Clinical Summary ---
Author Organization [facility] Address [address] [place] [address] Care Team Providers Care Harness Placer Name Role Phone Raulito Weathers RN Unavailable Unavailabl Sherman Lawrence MD Unavailable [phone] Ilan Olsen MD Unavailable [phone] Ganesh Hess MD Unavailable [phone] Evan Lozano MD Unavailable [phone] Nicola Méndez DO Unavailable Clinton Ramirez MD Primary Care Provider Juventino Keith MD Unavailable [phone] Vince Walton MD Unavailable [phone] Carl Alicea Unavailable [phone] Heidy Kenny MD Unavailable [phone] Elijah Alas MD Unavailable [phone] Allergies Active Allergy Reactions Criticality Noted Date [...] total) by mouth daily 30 capsule [address] (NexIUM) 40 mg capsuleIndicatio ns:Abdominal pain TAKE 1 CAPSULE (40 MG TOTAL) BY MOUTH DAILY. [address] (NexIUM) 40 mg capsuleIndicatio ns:Abdominal pain TAKE 1 CAPSULE (40 MG TOTAL) BY MOUTH DAILY. 90 capsule 024 2024 Discontinued HYDROcodone-acet aminophen (NORCO) 10-325 mg per tabletIndication s:Pain Take 0.5 tablets by mouth 4 (four) times a day as needed for pain 60 tablet 025 2024 Active Problems Problem Noted Date Diagnosed Date Spondylosis of cervical yvon on without myelopathy or radiculopathy 02/01/2024 Primary insomnia 01/07/2024 Overview (01/29/2024): [facility]. Facet arthropathy, cervical 04/22/2023 Other chest pain 04/09/2023 Assessment & Plan (04/15/2023 2:29 PM CNC MANAGER): She was in the [facility] ER recently with chest pain. She was [...] week. Recommend that she follow-up with her environmental emergencies assistant for this problem. If she wants a [...] on 10/17/2020, BERTRAND Ferris. Assessment & Plan (01/05/2023 3:32 PM CNC MANAGER): She had surgery on the left shoulder about two years ago consisting of arthroscopy, distal claviculectomy and rotator cuff repair. The biceps tendon was repaired or manipulated. Recent imaging at [facility] as part of her evaluation for abdominal [...] infraspinatus tear, ordered by Orthopedics, performed at [facility]. Sleep disorder 08/23/2019 Overview (08/22/2020): Details lacking, sees Dr. Durham. Patient says she might have narcolepsy. She is on Sonata to help her fall asleep. Assessment & Plan (04/12/2021 4:32 PM CNC MANAGER): She may have narcolepsy or a related [...] narcolepsy. Cyst of ovary 02/25/2019 Overview (03/20/2019): [facility], details lacking. Female stress incontinence 02/25/2019 Overview (03/20/2019): [place]. Chronic constipation 08/22/2018 Overview (11/22/2019): [...] remedy. Assessment & Plan (04/03/2021 5:10 PM CNC MANAGER): Movantik was not working and was expensive. She would like Linzess instead which helped her in the past. We sent in a prescription. terminologist (current) use of opiate analgesic 05/23 Rheumatoid arthritis of [facility] sites with negative rheumatoid factor 12/08/2017 Assessment & Plan (08/25/2023 3:41 PM CDT): Chronic, fair control. She self regulates her methotrexate dosing and did take a lower dose last week with improvement of her facial rash, see discussion elsewhere. She will follow-up with her environmental emergencies assistant, Dr. Keith, for this condition. Assessment & [...] needed. Assessment & Plan (04/12/2021 4:32 PM CNC MANAGER): She sees Dr. Keith. She is on [...] same. Assessment & Plan (04/01/2019 3:36 PM CNC MANAGER): She was diagnosed with seronegative rheumatoid arthritis, [...] Had a urethral sling. Unremarkable kidney USN, [facility], 06/25/2021, Dr. Lozano. Assessment & Plan (04/15/2023 2:28 PM CNC MANAGER): She is not tolerating oxybutynin. It is making her anxiety worse. She previously tolerated Myrbetriq, so we sent that in instead. Assessment & Plan (09/08/2020 4:00 PM CDT): She requested a referral back to Dr. Lozano for a follow up. Assessment & Plan (04/01/2019 3:34 PM CNC MANAGER): She has an overactive bladder as well as stress incontinence. She had a urethral sling a little over one year ago. She sees Dr. Evan Lozano as needed. He has her on oxybutynin. She has urinary frequency, but no dysuria or hematuria. Continue same. Raynaud's disease without gangrene 08/22/2017 Overview (03/21/2019): On nifedipine. Assessment & Plan (09/08/2020 3:50 PM CDT): Her environmental emergencies assistant decreased the dose of nifedipine to 30 mg daily. Continue same. Chronic pain 05/06/2016 Overview (03/20/2019): From [facility]. Assessment & Plan (04/15/2023 2:28 PM CNC MANAGER): She takes hydrocodone for more severe pain [...] symptoms that prompted a visit to the [facility] ER. . She had chest pain and [...] same. Assessment & Plan (04/03/2021 5:10 PM CNC MANAGER): She sees Dr. Crowley. Her most recent [...] well. Assessment & Plan (03/21/2019 11:26 AM CNC MANAGER): In addition to her back, she has [...] PM CDT): She was seen in the [facility] ER recently for abdominal pain and has [...] sent. Assessment & Plan (03/21/2019 11:27 AM CNC MANAGER): She is diagnosed with fibromyalgia. She sees [...] finances. Assessment & Plan (04/15/2023 2:18 PM CNC MANAGER): She has a lot of anxiety as [...] alternatives. Assessment & Plan (04/03/2021 5:08 PM CNC MANAGER): She has been seeing Dr. Katz for [...] today. Assessment & Plan (04/01/2019 3:36 PM CNC MANAGER): She had a very traumatic upbringing. Her [...] does have a psychiatrist, Dr. Katz, in [place]. She is on several medications to help [...] by neurosurgery, Dr. Heidy Kenny in about [id number]. No surgery recommended. Assessment & Plan (08/25/2023 [...] bladder. Assessment & Plan (04/01/2019 3:32 PM CNC MANAGER): She sees Dr. Westbrook for pain management. [...] same. Assessment & Plan (04/03/2021 5:12 PM CNC MANAGER): She has DuoNebs and a canister albuterol [...] same. Assessment & Plan (02/12/2020 3:38 PM CNC MANAGER): Patient is reporting increased congestion and chest [...] asthma. Assessment & Plan (03/21/2019 11:28 AM CNC MANAGER): She has had mild asthma with seasonal [...] note. Assessment & Plan (04/12/2021 4:37 PM CNC MANAGER): She called not too long ago with [...] before her surgery, either ordered by her environmental emergencies assistant or ordered by Dr. Walton so we can review them. Likewise for any EKG that is ordered. COVID-19 03/24/2020 05/05/2022 Overview (05/05/2022): Postive test. Followed by a month or more of post Covid congestion, saw BENITO Reed. Assessment & Plan (03/21/2021 12:17 PM CNC MANAGER): Patient tested positive for covid on Monday [...] continue with albuterol inhaler as directed and shan live. She will call or return with worsening or persistent symptoms. Viral URI 02/12/2020 08/22/2020 Overview (08/22/2020): See office note, BENITO Reed. Assessment & Plan (02/12/2020 3:36 PM CNC MANAGER): Patient has congestion, sinus pressure and ear fullness x 4 days most consistent with viral infection. COVID-19 testing negative. We discussed symptom management with tylenol for pain or fevers, rest fluids, Mucinex and saline rinses. She is to call if symptoms worsen or persist. Cervicovaginal cytology spec imen unsatisfactory 02/25/2019 03/20/2019 [place] (03/20/2019): [facility]. Major depressive disorder, r ecurrent, moderate 05/06/2016 08/22/2020 Overview (03/20/2019): From [facility]. Generalized anxiety disorder 05/06/2016 08/22/2020 Overview (03/20/2019): From [facility]. Left lower quadrant pain 09/10/2013 Overview (03/20/2019): Details lacking. Encounters Date Type Department Care Team Description 05/12/2024 10:42 AM CDT - 05/12/2024 11:59 PM CDT Hospital Encounter [facility] [address] [place] [address] A, [address] [place] [address] Tran Mittal NP Fibromyalgia (Primary Dx); Rheumatoid arthritis of multiple sites with negative rheumatoid factor (HCC); Facet arthropathy, cervical; Spondylosis of cervical region without myelopathy or radiculopathy; Facet hypertrophy of lumbar region; terminologist (current) use of opiate analgesic Discharge Disposition: [...] - 02/21/1999 Deviated septum, Dr. Sherman Milton, [facility]. TURBINOPLASTY 02/22/1998 - 02/21/1999 Dr. Milton, at time of septoplasty. BLADDER SUSPENSION 11/22/2017 - 12/22/2017 Dr. Lozano, [facility] outpatient surgery. LARYNX SURGERY 02/22/2009 - 02/21/2010 Dr. Milton, [facility] and outpatient surgery, multiple proceedures, most recently 2009 for vocal cord nodules. SHOULDER SURGERY 02/19/2018 Left Distal clavicle resection, acromioplasty, rotator cuff repair, labral repair, tendon repair. [facility] PAP SMEAR WITH HPV 02/02/2019 Normal/negative, See scanned reports. DILATION AND CURETTAGE OF UTERUS 12/09/2011 Benign proliferative endometrium, see scanned report. MAMMOGRAPHY 02/18/2020 Bilateral Negative, [facility]. SHOULDER SURGERY 10/17/2020 Left Left shoulder arthroscopy, distal claviculectomy including distal articular surface, rotator cuff repair, Dr. Walton, [facility]. SHOULDER ARTHROCENTESIS 10/14/2021 Bilateral Subacromial bursa injections, orthopedics. MAMMOGRAPHY 06/24/2022 Bilateral Negative, [facility]. SHOULDER ARTHROCENTESIS 03/01/2023 Bilateral Subacromial bursa steroid [...] [facility]. Viral URI 02/12/2020 See office note, BNEITO Reed. Osteopenia Gastric reflux Peripheral neuropathy Rheumatoid arthritis (HCC) Migraines Fibromyalgia Raynaud phenomenon GERD (gastroesophageal reflu x disease) Covid-19 03/24/2019 Details lacking. Acute otitis media, left 03/25/2021 Rx Augm entin, follow up exam normal. See office note. Covid-19 03/24/2020 Postive test. Fo llowed by a month or more of post Covid congestion, saw Rosalie Weeks ANP. Tear of left rotator cuff 09/15/2020 Left s houlder arthroscopy, distal claviculectomy including distal articular surface, rotator cuff repair on 10/17/2020, Dr. Walton, [facility]. Family History Medical History Relation Name Comments [...] on file 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 CNC MANAGER Gender Identity Not on file Sexual [...] history exists Pneumococcal vaccine <65 Completed 05/07/2022, 0702/2020 Goals Goal Patient Goal Type Associated Problems Recent Progress Patient-Stated? Author [facility] On track(2021 2:25 PM CDT) No Roselyn Douglas, RN Note: Patient will establish a comfort-function goal and identify the pain level that will allow the patient to perform desired activities and achieve an acceptable quality of life. [facility] Chronic Pain Care Plan Chronic Care Management No Ruthann Riddle, RN Note: Problem: Chronic Pain Goals: 1. Minimize further functional decline 2. Maximize quality of life 3. Control pain Strategies: - Activity/exercise program recommendation - Conservative stepwise pain medicine strategy with multi-disciplinary approach - Recommend healthy lifestyle strategies and compensatory methods as needed Medical Devices Implanted Type Area One Piece Expansion Maker Hand Device Identifier Shelf Expiration Date Model / Serial / Lot [employer] 2504-1 Regenerate Tendon [place] Suture - [id number] Implanted:Qty: 1 on 10/17/2020 by Vince Walton MD at [facility] Left: Shoulder [employer] 02/13/2023 2504-1 / / [id number] [employer]/Or tho 4565 Implant Medium Arthroscopic Bioinductive W/ Delivery Device - [id number] Implanted:Qty: 1 on 10/17/2020 by Vince Walton MD at [facility] Left: Shoulder [employer]/Or tho 04/12/2021 4565 / / [id number] [employer]/Or tho 4403 [place] Bone With Arthroscopic Delivery System Advanced - [id number] Implanted:Qty: 1 on 10/17/2020 by Vince Walton MD at [facility] Left: Shoulder [employer]/Rich[employer]/Or tho 12/28/2022 [id number] / / [id number] Procedures Procedure Name Priority Date/Time Associated Diagnosis Comments MAMMOGRAPHY Routine 06/24/2022 PAP SMEAR WITH HPV Routine 02/02/2019 from Last 3 Months or Most Recently Relevant to Health Maintenance Results * MAMMOGRAPHY (06/24/2022) Mammography Normal Impressions Clinton Ramirez MD - 06/24/2022 [facility], [facility]. Narrative Clinton Ramirez MD - 06/24/2022 See scanned report. us Clinton Ramirez MD HEALTH MAINTENANCE Final Resu lt * PAP SMEAR WITH HPV (02/02/2019) Pap smear Normal Comment:See scanned result. us Nicola Méndez DO HEALTH MAINTENANCE Final Result from Last 3 Months or Most Recently Relevant to Health Maintenance Insurance [employer] MEDICARE GOLD [facility] ADVANTAGE CHOICE PPO [facility] ADVANTAGE CHOICE PPO Care Teams Harness Placer Relationship Specialty Start Date End Date Clinton Ramirez MD [address] [place] [address] PCP - General Infectious Diseases 05/09/20 Raulito Weathers, RN Registered Nurse 07/22/17 Sherman Milton MD [address] [place] [address] Consulting Physician Otolaryngology 03/21/19 Ilan Olsen MD [address] [place] [address] Consulting Physician Otolaryngology 03/21/19 Ganesh Hess MD [address] [place] [address] Consulting Physician Obstetrics and Gynecology 03/21/19 Evan Lozano MD [address] [place] [address] Consulting Physician Urology 12/06/17 Nicola Méndez DO [id number] [place] [address] Associate Data Scientist Obstetrics and Gynecology 02/02/19 Juventino Keith MD [address] [place] [address] Referring Physician Rheumatology 05/09/20 Vince Walton MD [address] [facility] [address] A[address] Se[address] [facility] [address] [place] [address] Surgeon Orthopedic Surgery 10/03/20 Carl Alicea PA 4 [facility] [address], [place] [address] Physician Outpatient Phlebotomist Orthopedic Surgery 10/17/20 Heidy Kenny MD [address] [address] Consulting Physician Neurosurgery 07/13/22 Elijah Alas MD [address] [address] Consulting Physician Anesthesiology 04/15/23
--- OUTSIDE RECORDS SUMMARY | 2024-06-19 17:59 | XMS_ITS | Encounter Summary ---
Author Organization [facility] Healthcare Address [address] [place] [address] Care Team Providers Care Director Of Business Continuity Name Role Phone Florentino Bo MD Primary Care Provider [phone] Raulito Weathers RN Unavailable Unavailabl e Clinton Ramirez MD Primary Care Provider [phone] Ayaz Westbrook MD Unavailable [phone] Dagoberto Katz MD Unavailable [phone] Lucas Rachel MD Unavailable [phone] Sherman Milton MD Unavailable Ilan Olsen MD Unavailable [phone] Ganesh Hess MD Unavailable [phone] Evan Lozano MD Unavailable [phone] Nicola Méndez DO Unavailable Sherman Milton MD Unavailable Ilan Crowley MD Unavailable [phone] Clinton Ramirez MD Primary Care Provider [phone] Juventino Keith MD Unavailable [phone] Vince Walton MD Unavailable [phone] Carl Alicae Unavailable [phone] Heidy Kenny MD Unavailable [phone] Elijah Alas MD Unavailable [phone] Elijah Alas MD Unavailable [phone] Encounter Details Date Type Department Care Team (Late st Contact Info) Description 01/26/2005 Orders Only [facility] [address] [place] [address] Scanning, Provider Social History Tobacco Use Types Packs/Day Years Used Date Smoking Tobacco: Never Assessed Comments Unknown Sex and Gender Information Value Date Recorded Sex Assigned at Not on file 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 PEER EDUCATOR Gender Identity Not on file Sexual [...] on filedocumented in this encounter Care Teams Director Of Business Continuity Relationship Specialty Start Date End Date Florentino Bo MD [address] [facility] [address] [facility] [address] [place] [address] PCP - General 07/03/11 02/28/19 Clinton Ramirez MD [address] [place] [address] PCP - General 03/01/19 05/08/20 Clinton Ramirez MD [address] [place] [address] PCP - General Infectious Diseases 05/09/20 Raulito Weathers, JESSICA Registered Nurse 07/22/17 Ayaz Westbrook MD NPI: [id number] [place] [address] [address] [place] [address] Consulting Physician Pain Management 03/21/19 02/01/20 Dagoberto Katz MD [address] [place] [address] [place] [address] Consulting Physician Psychiatry 08/23/99 08/11/23 Lucas Rachel MD [address] [place] [address] [place] [address] Consulting Physician Rheumatology 03/21/19 02/01/20 Sherman Milton MD [address] [place] [address] Consulting Physician Otolaryngology 03/21/19 Ilan Olsen MD [address] [place] [address] Consulting Physician Otolaryngology 03/21/19 Ganesh Hess MD [address] [place] [address] Consulting Physician Obstetrics and Gynecology 03/21/19 Evan Lozano MD [address] [place] [address] Consulting Physician Urology 12/06/17 Nicola Méndez DO [id number] [place] [address] Ice Skating Coach Obstetrics and Gynecology 02/02/19 Sherman Milton MD [address] [facility] [address] [place] [address] Consulting Physician Otolaryngology 11/14/19 04/14/23 Ilan Crowley MD [id number] [place] [address] Anesthesiologist Anesthesiology 02/02/20 04/14/23 Juventino Keith MD [id number] [place] [address] Referring Physician Rheumatology 05/09/20 Vince Walton MD [address] [facility] [address] [facility] [address] [place] [address] Surgeon Orthopedic Surgery 10/03/20 Carl Alicea PA [address] [facility] [address] [place] [address] Physician Protection Officer Orthopedic Surgery 10/17/20 Heidy Kenny MD 3 [facility] [address] [facility] [address] [place] [address] Consulting Physician Neurosurgery 07/13/22 Elijah Alas MD 3 [facility] [address] [facility] [address] [place] [address] Consulting Physician Anesthesiology 04/15/23 Elijah Alas MD [address] [facility] [address] [place] [address] Consulting Physician Anesthesiology 08/12/23 08/12/23 documented as of this encounter
--- OUTSIDE RECORDS SUMMARY | 2024-06-19 17:59 | XMS_ITS | Encounter Summary ---
Author Organization [facility] Address [address] [place] [address] Phone Care Team Providers Care Rock Drill Operator Name Role Phone Raulito Weathers RN Unavailable Unavailabl e Dagoberto Katz MD Unavailable [phone] Sherman Milton MD Unavailable Ilan Olsen MD Unavailable [phone] Ganesh Hess MD Unavailable [phone] Evan Lozano MD Unavailable Pebbles éMndezgreciabrandy ROMERO Unavailable Sherman Milton MD Unavailable Ilan Crowley MD Unavailable [phone] Clinton Ramirez MD Primary Care Provider [phone] Juventino Keith MD Unavailable [phone] Vince Walton MD Unavailable [phone] Carl Alicea Unavailable [phone] Heidy Kenny MD Unavailable [phone] Elijah Alas MD Unavailable [phone] Elijah Alas MD Unavailable [phone] Encounter Details Date Type Department Care Team (Late st Contact Info) Description 11/04/2021 Orders Only [facility] [address] [place] [address] Clinton Ramirez MD [address] [place] [address] Social History Tobacco Use Types Packs/Day Years [...] on file 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 LATHE 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 Gender Identity Not on file Sexual Orientation [...] on filedocumented in this encounter Care Teams Rock Drill Operator Relationship Specialty Start Date End Date Clinton Ramirez MD [address] [place] [address] PCP - General Infectious Diseases 05/09/20 Raulito Weathers, RN Registered Nurse 07/22/17 Dagoberto Katz MD [address] [place] [address] [place] [address] Consulting Physician Psychiatry 08/23/99 08/11/23 Sherman Milton MD [address] [place] [address] Consulting Physician Otolaryngology 03/21/19 Ilan Olsen MD [address] [place] [address] Consulting Physician Otolaryngology 03/21/19 Ganesh Hess MD [address] [place] [address] Consulting Physician Obstetrics and Gynecology 03/21/19 Evan Lozano MD [address] [place] [address] Consulting Physician Urology 12/06/17 Nicola Méndez DO [id number] [place] [address] Golf Ball Winder Obstetrics and Gynecology 02/02/19 Sherman Milton MD [address] [facility] [address] [place] [address] Consulting Physician Otolaryngology 11/14/19 04/14/23 Ilan Crowley MD [address] [facility] [id number] [place] [address] Anesthesiologist Anesthesiology 02/02/20 04/14/23 Juventino Keith MD [address] [place] [address] Referring Physician Rheumatology 05/09/20 Vince Walton MD 4 [facility] [address] [facility] [address] [place] [address] Surgeon Orthopedic Surgery 10/03/20 Carl Alicea PA 4 [facility] [address] [place] [address] Physician Efficiency Analyst Orthopedic Surgery 10/17/20 Heidy Kenny MD 3 [facility] [address] [place] [address] Consulting Physician Neurosurgery 07/13/22 Elijah Alas MD 3 [facility] [address] [facility] [address] [place] [address] Consulting Physician Anesthesiology 04/15/23 Elijah Alas MD 2 [facility] [address] [place] [address] Consulting Physician Anesthesiology 08/12/23 08/12/23 documented as of this encounter
--- OUTSIDE RECORDS SUMMARY | 2024-06-19 17:59 | XMS_ITS | Patient Health Record ---
Author Organization [facility] [place] Address [address] [place] [address] Care Team Providers Care Tire Builder Operator Name Role Phone Clinton Ramirez MD Primary Care Provider Unavailab Kym Andrade Unavailable [phone] Umu Saravia Unavailable [phone] Yuniel Quintero Unavailable [phone] Migration, Provider Unavailable Unavailable Allergies Allergen (clinical drug ingredient) Drug/Non Drug Allergy documented on EMR Reaction Allergy Type Onset Date Status paroxetine Paxil Unknown Drug Allergy 05/28/2023 Activ e Results Component Value Reference Range Notes Hydroxyalprazolam Reviewed date:06/05/2024 12:45:02 PM Interpretation: Performing Lab:[address] [place] [address], [address] [place] [address], Director - [id number] Notes/Report: An exception occurred while processing this report and so it has incomplete data. Please contact [employer] for assistance. Hydroxyalprazolam 101.0 20.0 ng/mL Medicated Consistent PDF Report [id number]_[id number] [id number] Alprazolam Reviewed date:06/05/2024 12:45:02 PM Interpretation: Performing Lab: Notes/Report: Alprazolam 46.3 20.0 ng/mL Medicated Consistent NEED PHYSICIAN SIGNATURE Reviewed date:06/05/2024 12:45:02 PM Interpretation: Performing Lab: Notes/Report: Benzodiazepines Reviewed date:06/05/2024 12:45:02 PM Interpretation: Performing Lab: Notes/Report: Validity Testing Reviewed date:06/05/2024 12:45:02 PM Interpretation: Performing Lab: Notes/Report: Not Medicated Consistent Not Medicated Consistent Not Medicated Consistent Not Medicated Consistent Specific [place] 1.009 1.003 - 1.030 pH 5.3 3.0 - 10.9 Oxidants -7 200 g/mL Creatinine 34.1 20.0 - 300.0 mg/dL UDT Reviewed date:09/30/2023 03:10:37 PM Interpretation: Performing Lab: Notes/Report: THC N 0 - 50 ng/ml Cocaine N 0 - 300 ng/ml Amphetamine N 0 - 1000 ng/ml Buprenorphine (BUP) N 0 - 10 ng/ml Secobarbital (Bar) N 0 - 300 ng/ml Oxazepam (BZO) P 0 - 300 ng/ml 4-gypmdmfykd-1,3-otpnnayt-4, 3-dipheny lpyrrolidine (EDDP) N 0 - 300 ng/ml Methamphetamine (MET) N 0 - 1000 ng/ml Methylenedioxymethamphetamine (MDMA) N 0 - 500 ng/ml Morphine (MOP 300/BXQ8491) P 0 - 300 ng/ml Methadone (MTD) N 0 - 300 ng/ml Phencyclidine (PCP) N 0 - 25 ng/ml Nortriptyline (TCA) N 0 - 1000 ng/ml Oxycodone N 0 - 300 ng/ml x N 0 - 300 ng/ml UDT Reviewed date:08/20/2023 05:00:18 PM Interpretation: Performing Lab: Notes/Report: THC N 0 - 50 ng/ml Cocaine N Amphetamine N Buprenorphine (BUP) N Secobarbital (Bar) N Oxazepam (BZO) P 0-mizongsztb-7,0-nnnyythy-3, 3-dipheny lpyrrolidine (EDDP) N Methamphetamine (MET) N Methylenedioxymethamphetamine (MDMA) N Morphine (MOP 300/TAS0524) N Methadone (MTD) N Phencyclidine (PCP) N Nortriptyline (TCA) N x N Reason For Referral No Information Medications Medication SIG (Take, Route, Frequency, Duration) Notes Start Date End Date Status ADALIMUMAB 40 MG/0.4 ML SUBCUTANEOUS PEN KIT *Reorder from [employer] for eRx and Interaction Alerts* 05/28/2023 Unknown LINACLOTIDE 290 MCG CAPSULE *Reorder from [employer] for eRx and Interaction Alerts* 05/28/2023 Unknown oxyBUTYnin Chloride ER 15 MG Oral 05/28/2023 Unknown Ipratropium-Albutero l 0.5-2.5 (3) MG/3ML Inhalation 05/28/2023 Unknown TRIAMCINOLONE (BULK) *Reorder fr [facility] for eRx and Interaction Alerts* 05/28/2023 Unknown [...] ALPRAZOLAM ODT 0.5 mg Oral *Reorder from [facility] for eRx and Interaction Alerts* 05/28/2023 Not-Taking ALPRAZolam 1 MG 0.5 tablet Oral four times daily as needed for anxiety for 30 days 05/26/2024 Active CETIRIZINE 10 MG CAPSULE *Reorder from [facility] for eRx and Interaction Alerts* 05/28/2023 Not-Taking Gabapentin 100 MG 1 capsule Oral Once a day for 30 days Active QUEtiapine Fumarate 50 MG 1 tablet at bedtime Orally Once a day for 30 days Active ALPRAZolam 0.5 MG 0.5 tablet Orally four times daily as needed for anxiety for 30 days 04/27/2024 Active ALPRAZolam 1 MG 0.5 tablet Oral [...] Risk Notes Problem Moderate recurrent major depression (10546651) Major depressive disorder, recurrent, moderate (F33.1) Active confirmed Problem Generalized anxiety disorder (83466229) Generalized anxiety disorder (F41.1) Active confirmed Problem Posttraumatic stress disorder (98676372) Post-traumatic stress disorder, chronic (F43.12) Active confirmed Problem Primary insomnia (8094193) Primary insomnia (F51.01) Active confirmed Problem Insomnia disorder related to another mental disorder (05258141) Insomnia due to other mental disorder (F51.05) Active confirmed Problem Attention deficit hyperactivity disorder, combined type (74928863) Attention-deficit hyperactivity disorder, combined type (F90.2) Active confirmed Vital Signs Heart Rate 71 /min 05/26/2024 Height-cm 160.02 cm 05/26/2024 Blood pressure diastolic 83 mm Hg 05/26/2024 Weight-kg 50.8 kg 05/26/2024 Height 63.00 in 05/26/2024 Blood pressure systolic 116 mm Hg 05/26/2024 Weight 112 lbs 05/26/2024 BMI 19.84 kg/m2 05/26/2024 Encounters Encounter Location Date Provider Diagnosis [facility] [address] [facility] [address] [address] 08/20/2023 Kym Neville Major depressive disorder, recurrent, moderate F33.1 ; Generalized anxiety disorder F41.1 ; Post-traumatic stress disorder, chronic F43.12 ; Insomnia due to other mental disorder F51.05 and Attention-deficit hyperactivity disorder, combined type F90.2 [facility] [employer] [facility] [address] [facility] [address] [facility] [address] [place] [address] 09/22/2023 Umu Rani Major depressive disorder, recurrent, moderate F33.1 ; Generalized anxiety disorder F41.1 ; Post-traumatic stress disorder, chronic F43.12 and Attention-deficit hyperactivity disorder, combined type F90.2 [facility] [address] [facility] [address] [place] [address] 09/30/2023 Umu Rani Major depressive disorder, recurrent, moderate F33.1 ; Generalized anxiety disorder F41.1 ; Post-traumatic stress disorder, chronic F43.12 and Attention-deficit hyperactivity disorder, combined type F90.2 [facility] [address] [facility] [address] [place] [address] 09/30/2023 Kym Kelin Major depressive disorder, recurrent, moderate F33.1 ; Generalized anxiety disorder F41.1 ; Post-traumatic stress disorder, chronic F43.12 ; Insomnia due to other mental disorder F51.05 and Attention-deficit hyperactivity disorder, combined type F90.2 [facility] [address] [facility] [address] [place] [address] 10/11/2023 Umu Rani Major depressive disorder, recurrent, moderate F33.1 ; Generalized anxiety disorder F41.1 ; Post-traumatic stress disorder, chronic F43.12 and Attention-deficit hyperactivity disorder, combined type F90.2 [facility] [address] [facility] [address] [place] [address] 10/29/2023 Umu Rani Major depressive disorder, recurrent, moderate F33.1 ; Generalized anxiety disorder F41.1 ; Post-traumatic stress disorder, chronic F43.12 and Attention-deficit hyperactivity disorder, combined type F90.2 [facility] [address] [address] 11/22/2023 Umu Rani Major depressive disorder, recurrent, moderate F33.1 ; Generalized anxiety disorder F41.1 ; Post-traumatic stress disorder, chronic F43.12 and Attention-deficit hyperactivity disorder, combined type F90.2 [facility] [address] [address] 12/10/2023 Umu Rani Major depressive disorder, recurrent, moderate F33.1 ; Generalized anxiety disorder F41.1 ; Post-traumatic stress disorder, chronic F43.12 and Attention-deficit hyperactivity disorder, combined type F90.2 [facility] [address] [address] 01/07/2024 Kym Kelin Major depressive disorder, recurrent, moderate F33.1 ; Generalized anxiety disorder F41.1 ; Post-traumatic stress disorder, chronic F43.12 ; Attention-deficit hyperactivity disorder, combined type F90.2 and Primary insomnia F51.01 [place] [address] [address] 05/26/2024 Kym Neville Major depressive disorder, recurrent, moderate F33.1 ; Generalized anxiety disorder F41.1 ; Post-traumatic stress disorder, chronic F43.12 ; Attention-deficit hyperactivity disorder, combined type F90.2 ; Primary insomnia F51.01 ; Encounter for screening for cardiovascular disorders Z13.6 and Encounter for screening for depression Z13.31 [facility], [facility] [address] [place] [address] 07/10/2023 Provider Migration [facility], [facility] [address] [place] [address] 07/11/2023 Provider Migration [facility], [facility] [address] [place] [address] 08/10/2023 Kym Neville [facility], [facility] [address] [place] [address] 08/27/2023 Yuniel Quintero [facility], [facility] [address] [place] [address] 08/30/2023 Kym Kelin [facility], [facility] [address] [place] [address] 09/16/2023 Kym Neville [facility], [facility] [address] [place] [address] 08/15/2023 Kym [facility], [facility] [address] [place] [address] 11/19/2023 Kym Orantesag Generalized anxiety disorder F41.1 [facility], [facility] [address] [place] [address] 11/19/2023 Kym Kelin [facility], [facility] [address] [place] [address] 01/05/2024 Kym Neville [facility], [facility] [address] [place] [address] 02/10/2024 Kym Neville Primary insomnia F51.01 [facility], [facility] [address] [place] [address] 03/14/2024 Kym Neville Major depressive disorder, recurrent, moderate F33.1 and Post-traumatic stress disorder, chronic F43.12 [facility], [facility] [address] [place] [address] 03/14/2024 Kym Neville Attention-deficit hyperactivity disorder, combined type F90.2 [facility] [address] [place] [address] 03/24/2024 Kym Neville [facility], [facility] [address] [place] [address] 03/24/2024 Kym Neville [facility], [facility] [address] [place] [address] 03/24/2024 Kym Neville [facility], [facility] [address] [place] [address] 05/02/2024 Kym Neville [facility], [facility] [address] [place] [address] 05/02/2024 Kym Neville [facility], [facility] [address] [place] [address] 05/03/2024 Kym Neville [facility], [facility] [address] [place] [address] 05/03/2024 Kym Neville [facility], [facility] [address] [place] [address] 05/04/2024 Kym Neville Major depressive disorder, recurrent, moderate F33.1 [facility], [facility] [address] [place] [address] 06/08/2024 Kym Neville Assessments Encounter Date Diagnosis [...] of 3 children and grew up in [place], [place]. Client's parents were very young when [...] of 3 children and grew up in [place]. Client's parents were very young when [...] of 3 children and grew up in [place] Client's parents were very young when [...] of 3 children and grew up in [place]. Client's parents were very young when [...] part-time 10-12 hours a week for an [employer] (she had worked there prior to disability). Client is the 2nd of 3 children and grew up in [place]. Client's parents were very young when [...] effects of psychotropic medications. -Crisis prevention hotline 862. Plan Of Treatment Pending Test Test Name Order Date UDT 01/07/2024 Next Appt Details Provider Name:Kym Neville, 09/04/2024 01:00:00 PM, [address], [facility] [address], [place], [address], Insurance Providers Payer Name Payer Address Payer Phone Subscriber Number Group Number Insured Name Patient Relationship to Insured Coverage Start Date Coverage End Date [employer] Medicare Replacement/ Advantage - Hmo [address] [place] [id number] GERTRUDIS Gastelum Self - patient is the insured 5 [...]
--- OUTSIDE RECORDS SUMMARY | 2024-06-19 17:59 | XMS_ITS | Referral Summary ---
Author Organization [facility] Address [address] [place] [address] Care Team Providers Care Chief Of Hospital Medicine Name Role Phone Raulito Weathers RN Unavailable Unavailabl Sherman Lawrence MD Unavailable [phone] Ilan Olsen MD Unavailable [phone] Ganesh Hess MD Unavailable [phone] Evan Lozano MD Unavailable [phone] Nicola Méndez DO Unavailable Clinton Ramirez MD Primary Care Provider [phone] Juventino Keith MD Unavailable [phone] Vince Walton MD Unavailable [phone] Carl Alicea Unavailable [phone] Heidy Kenny MD Unavailable [phone] Elijah Alas MD Unavailable [phone] Encounters Date Type Department Care Team Description 05/12/2024 10:42 AM CDT - 05/12/2024 11:59 PM CDT Hospital Encounter [facility] [address] [facility] 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 90 capsule [address] (NexIUM) 40 mg capsuleIndicatio [...] 04/09/2023 Assessment & Plan (04/15/2023 2:29 PM ROOM SERVICE FOOD SERVER): She was in the [facility] ER recently with chest pain. She was [...] week. Recommend that she follow-up with her customs officer for this problem. If she wants a [...] rotator cuff repair on 10/17/2020, Dr. Walton [facility]. Assessment & Plan (01/05/2023 3:32 PM ROOM SERVICE FOOD SERVER): She had surgery on the left shoulder about two years ago consisting of arthroscopy, distal claviculectomy and rotator cuff repair. The biceps tendon was repaired or manipulated. Recent imaging at [facility] as part of her evaluation for abdominal [...] infraspinatus tear, ordered by Orthopedics, performed at [facility]. Sleep disorder 08/23/2019 Overview (08/22/2020): Details lacking, sees Dr. Durham. Patient says she might have narcolepsy. She is on Sonata to help her fall asleep. Assessment & Plan (04/12/2021 4:32 PM ROOM SERVICE FOOD SERVER): She may have narcolepsy or a related [...] remedy. Assessment & Plan (04/03/2021 5:10 PM ROOM SERVICE FOOD SERVER): Movantik was not working and was expensive. She would like Linzess instead which helped her in the past. We sent in a prescription. detention (current) use of opiate analgesic 05/23 Rheumatoid arthritis of [facility] sites with negative rheumatoid factor 12/08/2017 Assessment & Plan (08/25/2023 3:41 PM CDT): Chronic, fair control. She self regulates her methotrexate dosing and did take a lower dose last week with improvement of her facial rash, see discussion elsewhere. She will follow-up with her customs officer, Dr. Keith, for this condition. Assessment & [...] needed. Assessment & Plan (04/12/2021 4:32 PM ROOM SERVICE FOOD SERVER): She sees Dr. Keith. She is on [...] same. Assessment & Plan (04/01/2019 3:36 PM ROOM SERVICE FOOD SERVER): She was diagnosed with seronegative rheumatoid arthritis, [...] Had a urethral sling. Unremarkable kidney USN, [facility], 06/25/2021, Dr. Lozano. Assessment & Plan (04/15/2023 2:28 PM ROOM SERVICE FOOD SERVER): She is not tolerating oxybutynin. It is making her anxiety worse. She previously tolerated Myrbetriq, so we sent that in instead. Assessment & Plan (09/08/2020 4:00 PM CDT): She requested a referral back to Dr. Lozano for a follow up. Assessment & Plan (04/01/2019 3:34 PM ROOM SERVICE FOOD SERVER): She has an overactive bladder as well as stress incontinence. She had a urethral sling a little over one year ago. She sees Dr. Evan Lozano as needed. He has her on oxybutynin. She has urinary frequency, but no dysuria or hematuria. Continue same. Raynaud's disease without gangrene 08/22/2017 Overview (03/21/2019): On nifedipine. Assessment & Plan (09/08/2020 3:50 PM CDT): Her customs officer decreased the dose of nifedipine to 30 mg daily. Continue same. Chronic pain 05/06/2016 Overview (03/20/2019): From [facility]. Assessment & Plan (04/15/2023 2:28 PM ROOM SERVICE FOOD SERVER): She takes hydrocodone for more severe pain [...] symptoms that prompted a visit to the [facility] ER. . She had chest pain and [...] same. Assessment & Plan (04/03/2021 5:10 PM ROOM SERVICE FOOD SERVER): She sees Dr. Crowley. Her most recent [...] well. Assessment & Plan (03/21/2019 11:26 AM ROOM SERVICE FOOD SERVER): In addition to her back, she has [...] PM CDT): She was seen in the [facility] ER recently for abdominal pain and has [...] sent. Assessment & Plan (03/21/2019 11:27 AM ROOM SERVICE FOOD SERVER): She is diagnosed with fibromyalgia. She sees [...] finances. Assessment & Plan (04/15/2023 2:18 PM ROOM SERVICE FOOD SERVER): She has a lot of anxiety as [...] alternatives. Assessment & Plan (04/03/2021 5:08 PM ROOM SERVICE FOOD SERVER): She has been seeing Dr. Katz for [...] today. Assessment & Plan (04/01/2019 3:36 PM ROOM SERVICE FOOD SERVER): She had a very traumatic upbringing. Her [...] does have a psychiatrist, Dr. Katz, in [place]. She is on several medications to help [...] by neurosurgery, Dr. Heidy Kenny in about [phone]. No surgery recommended. Assessment & Plan (08/25/2023 [...] bladder. Assessment & Plan (04/01/2019 3:32 PM ROOM SERVICE FOOD SERVER): She sees Dr. Westbrook for pain management. [...] same. Assessment & Plan (04/03/2021 5:12 PM ROOM SERVICE FOOD SERVER): She has DuoNebs and a canister albuterol [...] same. Assessment & Plan (02/12/2020 3:38 PM ROOM SERVICE FOOD SERVER): Patient is reporting increased congestion and chest [...] asthma. Assessment & Plan (03/21/2019 11:28 AM ROOM SERVICE FOOD SERVER): She has had mild asthma with seasonal [...] note. Assessment & Plan (04/12/2021 4:37 PM ROOM SERVICE FOOD SERVER): She called not too long ago with [...] before her surgery, either ordered by her customs officer or ordered by Dr. Walton so we can review them. Likewise for any EKG that is ordered. COVID-19 03/24/2020 05/05/2022 Overview (05/05/2022): Postive test. Followed by a month or more of post Covid congestion, saw BENITO Reed. Assessment & Plan (03/21/2021 12:17 PM ROOM SERVICE FOOD SERVER): Patient tested positive for covid on Monday [...] Reed. Assessment & Plan (02/12/2020 3:36 PM ROOM SERVICE FOOD SERVER): Patient has congestion, sinus pressure and ear [...] on file 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 ROOM SERVICE FOOD SERVER Gender Identity Not on file Sexual Orientation [...] as needed Medical Devices Implanted Type Area City Letter Carrier Device Identifier Shelf Expiration Date Model / Serial / Lot [employer] 2504-1 Regenerate Tendon Burton Suture - [id number] Implanted:Qty: 1 on 10/17/2020 by Vince Walton MD at [facility] Left: Shoulder [employer] 02/13/2023 2504-1 / / [id number] [employer] 4565 Implant Medium Arthroscopic Bioinductive W/ Delivery Device - [id number] Implanted:Qty: 1 on 10/17/2020 by Vince Walton MD at [facility] Left: Shoulder [employer] 04/12/2021 4565 / / [id number] [employer] 4403 Burton Bone With Arthroscopic Delivery System Advanced - [id number] Implanted:Qty: 1 on 10/17/2020 by Vince Walton MD at [facility] Left: Shoulder [employer] 12/28/2022 [id number] / / [id number] Procedures Procedure Name Priority Date/Time Associated Diagnosis Comments MAMMOGRAPHY Routine 06/24/2022 PAP SMEAR WITH HPV Routine 02/02/2019 from Last 3 Months or Most Recently Relevant to Health Maintenance Results * MAMMOGRAPHY (06/24/2022) Mammography Normal Impressions Clinton Ramirez MD - 06/24/2022 [facility]. Narrative Clinton Ramirez MD - 06/24/2022 See scanned report. Clinton Ramirez MD HEALTH MAINTENANCE Final Resu lt * PAP SMEAR WITH HPV (02/02/2019) Pap smear Normal Comment:See scanned result. Nakiersten Hasneftaly [facility] Final Result from Last 3 Months or Most Recently Relevant to Health Maintenance Insurance [employer] MEDICARE GOLD [employer] ADVANTAGE CHOICE PPO [employer] ADV[employer]AGE CHOICE PPO Care Teams Chief Of Hospital Medicine Relationship Specialty Start Date End Date Clinton Ramirez MD [address] [place] [address] PCP - General Infectious Diseases 05/09/20 Raulito Weathers, JESSICA Registered Nurse 07/22/17 Sherman Milton MD [address] [place] [address] Consulting Physician Otolaryngology 03/21/19 Ilan Olsen MD [address] [place] [address] Consulting Physician Otolaryngology 03/21/19 Ganesh Hess MD [address] [place] [address] Consulting Physician Obstetrics and Gynecology 03/21/19 Evan Lozano MD [address] [place] [address] Consulting Physician Urology 12/06/17 Nicola Méndez DO [id number] [place] [address] Hot Box Spotter Obstetrics and Gynecology 02/02/19 Juventino Keith MD [address] [place] [address] Referring Physician Rheumatology 05/09/20 Vince Walton MD [address] [facility] [facility] [facility] [address] ALEXY Seay [facility] [address] [place] [address] Surgeon Orthopedic Surgery 10/03/20 Carl Alicea PA [address] [facility] [facility] [facility] [address] [place] [address] Physician Industrial Order Clerk Orthopedic Surgery 10/17/20 Heidy Kenny MD [address] [facility] [address] [place] [address] Consulting Physician Neurosurgery 07/13/22 Elijah Alas MD [id number] [place] [address] Consulting Physician Anesthesiology 04/15/23
--- OUTSIDE RECORDS SUMMARY | 2024-06-19 17:59 | XMS_ITS ---
Author Organization [facility] [place] ([address]) Address [address] [place] [address] Care Team Providers Care Parachute Mender Name Role Phone Clinton Ramirez Primary Care Provider UnavailDr. Fredrick Landaverde Unavailable [phone] Hansa Wright Unavailable [phone] Allergies Allergen (clinical drug ingredient) Drug/Non Drug [...] Active Encounters Encounter Location Date Provider Diagnosis [facility] [place] [email or web address] [place] [address] 02/03/2024 Hansavickie Wright Chronic migraine without aura, not intractable, without status migrainosus G43.709 Assessments Encounter Date Diagnosis (ICD Code) Assessment Notes Treatment Notes Treatment Clinical Notes Section Notes 02/03/2024 Chronic migraine without aura, not intractable, without status migrainosus (ICD-10 - G43.709) Plan Of Treatment Next Appt Details Follow Up: , Reason: Evaluat ion and Management Progress Notes * Vernell VALADEZOB:1970 ([age] yo F)Acc No.[id number]:02/03/2024 Progress Notes Patient: Azeb NOGUERA Provider: Bib Wright APRN :1970 A ge:53 Y S ex:Female Date:02/03/2024 Address:[address] Pcp:Clinton Ramirez Subjective: * Chief Complaints: * [...] Her PCP is Dr. Clinton Ramirez in [place], [place]. She reports that she was referred [...] side and struck her head on the transportation driver's window, she cannot remember whether she lost [...] H eadache Frequency: I nitial/baseline headache/migraine days/month: 30/10-15 L ast visit headache/migraine days/month:21/12-15 C urrent [...] Management * Billing Information: * Visit Code: 00402 Office Visit, Est Pt., Level 4. Modifiers: 25 35528 Office Visit, Est Pt., Level 3. Modifiers: 22536 Office Visit, Est Pt., Level 5. Modifiers: 25 * Procedure Codes: 12572 PT-FOCUSED HLTH RISK ASSMT. G8427 DOC MEDS VERIFIED W/PT OR RE. G2211 Complex e/m visit add on. * Electronic signature of VIK Michael on 06/19/2024 at 05:58 PM CDT Sign off status: Pending * Provider: Bib Wright, AMALIA Date: 1 04/05/2023 Generated for Zain Mcdaniels on: 0 06/19/2024 05:58 PM CDT History and Physical Notes * [...] Her PCP is Dr. Clinton Ramirez in [place], [place]. She reports that she was referred [...] side and struck her head on the transportation driver's window, she cannot remember whether she lost [...]
--- OUTSIDE RECORDS SUMMARY | 2024-06-19 17:59 | XMS_ITS ---
Author Organization [facility] [place] ([address]) Address [address] [place] [address] Care Team Providers Care Dirt Supervisor Name Role Phone Clinton Ramirez Primary Care Provider Dr. Fredrick Frias Unavailable [phone] REASON FOR VISIT For scheduling Encounters Encounter Location Date Provider Diagnosis [facility] [place] [address] [place] [address] 12/13/2023 Fredrick Mendez Plan Of Treatment No Information Progress Notes * Vernell VALADEZOB:1970 ([age] yo F)Acc No.[id number]:12/13/2023 Patient: Bryce NOGUERAn :1970 A ge:53 Y S ex:Female Address:[address], [place] [address] * true * Date: Generated for Printi ng/Faxing/eTransmitting on: 0 06/19/2024 05:59 PM CDT
--- OUTSIDE RECORDS SUMMARY | 2024-06-19 17:59 | XMS_ITS | Clinical Summary ---
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
--- OUTSIDE RECORDS SUMMARY | 2024-06-19 17:59 | XMS_ITS | Patient Health Record ---
Author Organization [facility] [place] ([address]) Address [address] [place] [address] Care Team Providers Care Agribusiness Professor Name Role Phone Clinton Ramirez Primary Care Provider UnavailDr. Fredrick Landaverde Unavailable [phone] [facility], Provider Unavailable Unavailab Hansa Hutchison Unavailable [phone] Allergies Allergen (clinical drug ingredient) Drug/Non Drug [...] Problem Chronic migraine without aura, non-refractory (disorder) (846212101753727) Migraine without aura, not intractable, without status migrainosus (G43.009) Active confirmed Problem Migraine with aura (1324776) Migraine with aura, not intractable, without status migrainosus (G43.109) Active confirmed Problem Chronic migraine without aura, non-intractable (783965742993201) Chronic migraine without aura, not intractable, without status migrainosus (G43.709) Active confirmed Problem Drug induced headache (526985032392328) Drug-induced headache, not elsewhere classified, not intractable (G44.40) Active confirmed Problem Lesion of ulnar nerve (797536444) Lesion of ulnar nerve, right upper limb (G56.21) Active confirmed Problem Lesion of ulnar nerve (074303264) Lesion of ulnar nerve, left upper limb (G56.22) Active confirmed Problem Degeneration of lumbar intervertebral disc (41660170) Other intervertebral disc degeneration, lumbar region (M51.36) Active confirmed Problem Cervicalgia (54394161) Cervicalgia (M54.2) Active confirmed Problem Muscle pain (94332042) Myalgia, unspecified site (M79.10) Active confirmed Problem Cervicogenic headache (742493694) Cervicogenic headache (G44.86) Active confirmed Encounters Encounter Location Date Provider Diagnosis [facility] [address] [place] [address] 08/07/2023 Provider [facility] [address] [place] [address] 12/13/2023 Fredrick Mendez Plan Of Treatment Pending Test Test Name Order Date EMG (electromyography) - 3 (three) Romelia baker 10/15/2022 Insurance Providers Payer Name Payer Address Payer Phone Subscriber Number Group Number Insured Name Patient Relationship to Insured Coverage Start Date Coverage End Date [employer] Choice POS II [id number] [place] [phone] [id number] Azeb Valadez Self - patient is the insured Medical (General) History Medical History History ICD Code Cervicalgia Chronic migraine RA Fibromyalgia GERD Depression/anxiety OCD PTSD Bilateral rotator cuff Surgical History Surgery Date(Month/Year) L shoulder arthroscopy
--- OUTSIDE RECORDS SUMMARY | 2024-06-19 17:59 | XMS_ITS | Encounter Summary ---
Author Organization [employer] Address 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
--- OUTSIDE RECORDS SUMMARY | 2024-06-19 17:59 | XMS_ITS | Clinical Summary ---
Author Organization [facility] Address [address] [place] [address] Care Team Providers Care Boston Cutter Name Role Phone Florentino Bo MD Primary Care Provider [phone] Source Comments [facility],non-owned Affiliates and Associated Physician Practices is amultiple site organization consisting of ambulatory clinics and hospital sitesin [place], [place], [place] and [place]. This disclosure is being madepursuant to the Care Everywhere program and may not contain all information available regarding this patient. 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
--- OUTSIDE RECORDS SUMMARY | 2024-06-19 17:59 | XMS_ITS | Encounter Summary ---
Author Organization [employer] Address 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
== END 2024-06-19 15:57 | disposition home or self-care (01) ==
PROVIDERS: PCP Internal Medicine Infectious Disease; Visit Provider Internal Medicine
DX: M06.00 Rheumatoid arthritis without rheumatoid factor, unspecified site (principal); Z79.899 Other long term (current) drug therapy
CPT/HCPCS: 36415; 80069; 81001; 85027; 85652; 86140

== ENCOUNTER 2024-09-04 12:22 | Emergency (ER) | payer OTHER, SELFPAY ==
[2024-09-04 12:31] VITALS: BP 112/71; PULSE 73; RESP 18; TEMP 36.6; O2SAT 99
--- NOTE | 2024-09-04 12:33 | ED_ITS ---
HPI - Skin/Abscess/Foreign Bdy General Chief complaint: Skin/Abscess/Foreign Body Stated complaint: Rash Time Seen by Provider: 09/04/24 12:33 Source: patient Mode of arrival: ambulatory Limitations: no limitations History of Present Illness HPI narrative: 54 y/o female presented for c/o itchy red rash to right arm. Onset one week. Endorses clear/yellow drainage to some of the sites. Pt states she was exposed to poison lissette or oak last week. Has taken Benadryl. Says she has a history of reactions after exposure to poison lissette. Denies lip, tongue, or throat swelling, shortness of breath or wheezing. Denies changes to soap, detergent, lotion, or any other exposures. No one else in the house or any contacts with similar symptoms. Related Data Home Medications ?Medication ?Instructions ?Recorded ?Confirmed ?Last Taken ?Type albuterol sulfate 90 mcg/actuation 1 puff inhalation Q4H PRN 05/07/20 06/07/23 Unknown History aerosol inhaler (ProAir HFA) shortness of breath alprazolam 1 mg tablet 1 mg PO TID PRN anxiety 05/07/20 06/07/23 Unknown History esomeprazole magnesium 40 mg 40 mg PO DAILY 05/07/20 06/07/23 Unknown History capsule,delayed release gabapentin 100 mg capsule 100 mg PO QHS 05/07/20 06/07/23 Unknown History zaleplon 10 mg capsule 10 mg PO QHS PRN insomnia 05/07/20 09/04/24 Unknown History celecoxib 200 mg capsule mg 09/04/24 Unknown History fluoxetine 20 mg capsule mg 09/04/24 Unknown History hydrocodone 10 mg-acetaminophen tablet 09/04/24 Unknown History 325 mg tablet quetiapine 50 mg tablet mg 09/04/24 Unknown History Allergies Allergy/AdvReac Type Severity Reaction Status Date / Time paroxetine Allergy Unknown Rash Verified 09/04/24 12:36 Review of Systems Review of Systems: CONSTITUTIONAL: Denies body aches, fever, chills, or sweats. EYES: Denies visual changes, redness, or discharge. ENT: Denies rhinorrhea, congestion CARDIOVASCULAR: Denies chest pain, palpitations, or edema. RESPIRATORY: Denies cough or dyspnea. GASTROINTESTINAL: Denies abdominal pain, nausea, vomiting, or diarrhea. SKIN: per HPI MUSCULOSKELETAL: Denies back pain, joint pain, or myalgia. NEUROLOGIC: Denies headache, numbness, tingling, or weakness. [facility] Past Medical History Medical History Abnormal x-ray of humerus ADHD Allergies Anxiety Arthritis Asthma Constipation Degenerative joint disease of cervical and lumbar spine Elevated LFTs Encounter for IUD removal 12/22/10 Mirena removal Encounter for screening colonoscopy Encounter for screening for other viral diseases Fibromyalgia GERD (gastroesophageal reflux disease) Headache History of IBS Insomnia LLQ pain Osteopenia PTSD (post-traumatic stress disorder) Raynauds disease Rheumatoid arthritis Rotator cuff injury RUQ pain Seronegative rheumatoid arthritis of multiple sites (~2009) Vocal cord nodules x3 removed Surgical History Surgical History H/O nasal septoplasty septoplasty & turbinectomy H/O shoulder surgery 02/19/18 lt shoulder H/O shoulder surgery (10/17/20) left shoulder History of hysteroscopy 1994 hscope d&c 12/09/11 hscope d&c--irregular menses--proliferative endometrium mid phase History of tonsillectomy Status post creation of urethral sling by suprapubic approach Family History Family History Mother Family history of osteoporosis Family history of osteoarthritis Hypertension Emphysema lung Raynauds disease Arthritis Father Hypertension Asthma Depression Heart problem Kidney disease Grandparent Hypertension Cerebrovascular accident Rheumatoid arthritis Breast cancer paternal grandmother Pancreatic cancer maternal grandmother Social History Social History Smoking status: Never smoker Alcohol intake: current Alcohol use details: rarely Substance use: never Substance use type: does not use Lack of Transportation: No Lack of Food: Never True Current Housing: I Have Housing Concerned About Future Housing: No Difficulty Paying Gas/Electric Bills: No Difficulty Paying for Meds: No Currently Unemployed: No Education: Decline to Answer Difficulty w/ Childcare or Family Care: No Living arrangements: alone Additional living arrangements comments: Occupation/Education: occupation 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 Please see nursing chart for further information. There is no relevant family history pertinent to the presenting complaint Exam Narrative: GENERAL: Well-appearing EYES: conjunctivae clear, and EOMI. ENT: Mucous membranes moist. Oropharynx without edema, erythema or lesions. NECK: Supple. No lymphadenopathy CHEST: Clear to auscultation. HEART: Regular rate and rhythm. SKIN: Warm, dry. Right forearm with patches of vesicular rash on erythematous base, Distal lesions draining serous fluid. Mild swelling and light erythema surrounding the sites. Nontender. NEURO: Alert and oriented x3. Course Course Emergency Course: Patient is aware of diagnosis, understands and agrees to treatment plan. Anticipatory guidance given. Patient agrees to follow-up as directed and is aware of reasons to seek care at the emergency department. Portions of this record may have been created with voice recognition software Level of Care: Express Care Visit Vital Signs Vital signs: Vital Signs Temperature 97.8 F 09/04/24 12:31 Pulse Rate 73 09/04/24 12:31 Respiratory Rate 18 09/04/24 12:31 Blood Pressure 112/71 09/04/24 12:31 Pulse Oximetry 99 09/04/24 12:31 Oxygen Delivery Room Air 09/04/24 12:31 Temperature 97.8 F 09/04/24 12:31 Pulse Rate 73 09/04/24 12:31 Respiratory Rate 18 09/04/24 12:31 Blood Pressure 112/71 09/04/24 12:31 Pulse Oximetry 99 09/04/24 12:31 Oxygen Delivery Room Air 09/04/24 12:31 Reviewed MDM - Skin/Abscess/Foreign Bdy MDM Narrative Medical decision making narrative: Discussed physical exam findings Principal Developer contact dermatitis. Site cleansed with skin integrity, nonstick dressing applied. Reviewed RX. Will send cephalexin as pt has mild erythema surrounding the draining lesions. Advised supportive measures and signs/symptoms to go to the ER. Pt is appropriate for outpt treatment and f/u. Instructed patient to go to nearest ER immediately for any worsening symptoms including but not limited to: fever, spreading rash, pain, sore throat, chest pain, trouble breathing, or any symptoms concerning to the patient. Differential Diagnosis Differential diagnosis: Likely abscess of skin or subcutaneous tissue, viral exanthem, dermatophytosis, urticaria, herpes zoster, cellulitis, eczema, insect bites, impetigo and contact dermatitis Discharge Plan Discharge Clinical Impression: Contact dermatitis Patient Disposition: Home Condition: Stable Instructions: Antibiotic Form, Poison Lissette (ED) Additional Instructions: Take steroids and Pepcid as directed. Benadryl every 8 hours as needed (or you can take Zyrtec/Claritin) as needed for itching Cool compresses to the sites of itching, avoid hot water. Avoid scratching to reduce the risk of infection Keep the areas covered while draining Cleanse the areas at least daily with gentle soap and water Follow up with your primary care provider as needed in 1 week Go to the ER for worsening symptoms or concerns (lip, tongue, throat swelling/i tching, trouble breathing etc) Patient Language: Japanese Prescriptions: New prednisone 20 mg tablet 20 mg PO DAILY Qty: 18 0RF Rx Instructions: take 3 tablets daily for 3 days, then 2 tablets daily for 3 days then 1 tablet daily for 3 days cephalexin 500 mg capsule 500 mg PO Q8H 5 Days Qty: 15 0RF famotidine [Pepcid] 40 mg tablet 40 mg PO DAILY Qty: 10 0RF No Action celecoxib 200 mg capsule hydrocodone-acetaminophen 10-325 mg tablet fluoxetine 20 mg capsule quetiapine 50 mg tablet albuterol sulfate [ProAir HFA] 90 mcg/actuation HFA aerosol inhaler 1 puff inhalation Q4H PRN (Reason: shortness of breath) alprazolam 1 mg tablet 1 mg PO TID PRN (Reason: anxiety) gabapentin 100 mg capsule 100 mg PO QHS esomeprazole magnesium 40 mg capsule,delayed release(DR/EC) 40 mg PO DAILY zaleplon 10 mg capsule 10 mg PO QHS PRN (Reason: insomnia) Rx Instructions: must avoid high-fat meal/food immediately before taking dose methotrexate sodium 2.5 mg tablet 25 mg PO WEEKLY Qty: 120 1RF folic acid 1 mg tablet 1 mg PO DAILY Qty: 90 1RF Linzess 290 mcg capsule 290 mcg PO DAILY 30 Days Qty: 30 2RF amlodipine 2.5 mg tablet 2.5 mg PO BID Qty: 60 6RF Follow-up/Referrals: James,Clinton Davila MD [Primary Care Provider] - Time of Disposition: 12:49
== END 2024-09-04 12:58 | disposition home or self-care (01) ==
PROVIDERS: Emergency Provider Nurse Practitioner Family; PCP Internal Medicine Infectious Disease
DX: L25.9 Unspecified contact dermatitis, unspecified cause (principal); J45.909 Unspecified asthma, uncomplicated; M79.7 Fibromyalgia; K21.9 Gastro-esophageal reflux disease without esophagitis; M85.80 Other specified disorders of bone density and structure, unspecified site; I73.00 Raynaud's syndrome without gangrene; M06.09 Rheumatoid arthritis without rheumatoid factor, multiple sites; F41.9 Anxiety disorder, unspecified
CPT/HCPCS: 99213; G0463

== ENCOUNTER 2024-09-26 15:12 | Emergency (ER) | payer OTHER, SELFPAY ==
--- NOTE | ~2024-09-26 | CT_ITS ---
History: Vertigo, fall venous PROCEDURE: CT head without contrast. : None TECHNIQUE: Axial imaging of the head performed from the skull base to the vertex without IV contrast. Sagittal a nd coronal reformations obtained. DLP: 681mGy-cm FINDINGS: The ventricles are normal in size, shape and position. There is no mass, mass effect or midline shift. There is no abnormal extra-axial fluid collection or intracranial hemorrhage. Visualized paranasal sinuses are clear. The mastoid air cells are well aerated. No acute displaced fractures within the overlying cranium. Impression: No acute intracranial hemorrhage or suspicious mass effect. Reviewed, dictated and finalized at location A. Impression: No acute intracranial hemorrhage or suspicious mass effect.
--- OUTSIDE RECORDS SUMMARY | 2024-09-26 15:16 | XMS_ITS | Clinical Summary ---
Author Organization [facility] Address [address] [place] [address] Care Team Providers Care Explosive Operator Supervisor Name Role Phone Florentino Bo MD Primary Care Provider [phone] Source Comments [facility],non-owned Affiliates and Associated Physician Practices is amultiple site organization consisting of ambulatory clinics and hospital sitesin [place], [place], [place] and [place]. This disclosure is being madepursuant to the Care Everywhere program and may not contain all information available regarding this patient. 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 Not on file Not [...] 2:02 PM CDT Height 160 cm (5' 3) 11/26/2016 2:02 PM CDT Body Mass Index 23.91 11/26/2016 2:02 PM CDT Plan of Treatment Upcoming Encounters Date Type Department Care Team (Late st Contact Info) Description 11/09/2024 1:15 PM CDT Office Visit [facility] [address] [place] [address] Ilan Olsen MD [address] [place] [address] Health Maintenance Due Date Last Done Comments COLOGUARD (AGES 45-75) - COL ON CA SCREENING 1972 COLON MONITORING 1972 COLONOSCOPY - COLON CA SCREENING 1972 CT COLONOGRAPHY - COLON CA SCREENING 1972 Colorectal Cancer Screening 1972 FIT - COLON CA SCREENING 1972 FLEX SIG - COLON CA SCREENING 1972 LIPID TESTING 1972 MAMMOGRAM 1972 MEDICARE AWV 12 MONTHS 1972 HIV SCREENING 02/05/1987 HEPATITIS C SCREENING 02/01/1990 DTAP/TDAP/TD VACCINES (1 - Tdap) 02/05/1991 HEPATITIS B VACCINE (1 of 3 - 19+ 3-dose series) 02/05/1991 PAP SMEAR 02/05/1993 PNEUMOCOCCAL VACCINE 50+ (1 of 1 - PCV) 02/05/2022 ZOSTER VACCINE (1 of 2) 02/05/2022 COVID-19 VACCINE (1 - 2023-2 5 season) 2023 DEPRESSION SCREENING 02/23/2024 INFLUENZA VACCINE (#1) 2024 HIB VACCINE Aged Out No longer [...] patient's age to complete this topic Insurance [facility] Member Subscriber Plan / Payer (Ef fective 2011-Present) Name:Azeb Valadez Relation to Subscriber:Spouse Name:WILLIAM VALADEZ Subscriber ID:Not on file Date of :1977 Payer ID:[id number] (NAIC) Type:PPO Address: [facility] [id number] [id number] [employer] ANTHEM Care Teams Explosive Operator Supervisor Relationship Specialty Start Date End Date Florentino Bo MD [address] [place] [address] PCP - General Internal Medicine 10/15/14
--- OUTSIDE RECORDS SUMMARY | 2024-09-26 15:16 | XMS_ITS | Encounter Summary ---
Author Organization [facility] Healthcare Address [address] [place] [address] Care Team Providers Care Oil Plant Operator Name Role Phone Florentino Bo MD Primary Care Provider [phone] Raulito Weathers RN Unavailable Unavailabl e Clinton Ramirez MD Primary Care Provider [phone] Ayaz Westbrook MD Unavailable [phone] Dagoberto Katz MD Unavailable [phone] Lucas Rachel MD Unavailable [phone] Sherman Milton MD Unavailable Ilan Olsen MD Unavailable +[phone] Ganesh Hess MD Unavailable +[phone] Evan Lozano MD Unavailable [phone] Nicola Méndez DO Unavailable Sherman Milton MD Unavailable +[phone] Ilan Crowley MD Unavailable +[phone] Clinton Ramirez MD Primary Care Provider [phone] Juventino Keith MD Unavailable [phone] Vince Walton MD Unavailable [phone] Carl Alicea Unavailable +[phone] Heidy Kenny MD Unavailable [phone] Elijah Alas MD Unavailable +[phone] Elijah Alas MD Unavailable [phone] Encounter Details Date Type Department Care Team (Late st Contact Info) Description 01/26/2005 Orders Only [facility] [address] [place] [address] Scanning, Provider Social History Tobacco Use Types Packs/Day Years Used Date Smoking Tobacco: Never Assessed Comments Unknown Sex and Gender Information Value Date Recorded Sex Assigned at Not on file 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 162 [facility] [address] [place] [address] PCP - General 07/03/11 02/28/19 Clinton Ramirez MD [address] [place] [address] PCP - General 03/01/19 05/08/20 Clinton Ramirez MD [address] [place] [address] PCP - General Infectious Diseases 05/09/20 Raulito Weatehrs, JESSICA Registered Nurse 07/22/17 Ayaz Westbrook MD NPI: [id number] [address] [place] [address] [address] [place] [address] Consulting Physician Pain Management 03/21/19 02/01/20 Dagoberto Katz MD [address] [place] [address] [place] [address] Consulting Physician Psychiatry 08/23/99 08/11/23 Lucas Rachel MD [address] [place] [address] [place] [address] Consulting Physician Rheumatology 03/21/19 02/01/20 Sherman Milton MD [address] [place] [address] Consulting Physician Otolaryngology 03/21/19 Ilan Olsen MD [address] [place] [address] Consulting Physician Otolaryngology 03/21/19 Ganesh Hess MD [address] [place] [address] Consulting Physician Obstetrics and Gynecology 03/21/19 Evan Lozano MD [address] [place] [address] Consulting Physician Urology 12/06/17 Nicola Méndez DO [id number] [place] [address] Family Practice Nurse Practitioner Obstetrics and Gynecology 02/02/19 Sherman Milton MD [address] [facility] [address] [place] [address] Consulting Physician Otolaryngology 11/14/19 04/14/23 Ilan Crowley MD [id number] [place] [address] Anesthesiologist Anesthesiology 02/02/20 04/14/23 Juventino Keith MD [id number] [place] [address] Referring Physician Rheumatology 05/09/20 Vince Walton MD [address] [facility] [address] [facility] [address] [place] [address] Surgeon Orthopedic Surgery 10/03/20 Carl Alicea PA [address] [facility] [address] [place] [address] Physician Neon Glass Blower Orthopedic Surgery 10/17/20 Heidy Kenny MD 3 [facility] [address] [place] [address] Consulting Physician Neurosurgery 07/13/22 Elijah Alas MD 3 [facility] [address] [facility] [address] [place] [address] Consulting Physician Anesthesiology 04/15/23 Elijah Alas MD [address] [facility] [address] [place] [address] Consulting Physician Anesthesiology 08/12/23 08/12/23 documented as of this encounter
--- OUTSIDE RECORDS SUMMARY | 2024-09-26 15:16 | XMS_ITS | Encounter Summary ---
Author Organization [facility] Address [address] [place] [address] Phone Care Team Providers Care Fiscal Accountant Name Role Phone Raulito Weathers RN Unavailable Unavailabl e Clinton Ramirez MD Primary Care Provider [phone] Dagoberto Katz MD Unavailable [phone] Sherman Milton MD Unavailable [phone] Ilan Olsen MD Unavailable [phone] Ganesh Hess MD Unavailable [phone] Evan Lozano MD Unavailable +[phone] Nicloa Méndez DO Unavailable Sherman Milton MD Unavailable [phone] Ilan Crowley MD Unavailable [phone] Clinton Ramirez MD Primary Care Provider [phone] Juventino Keith MD Unavailable [phone] Vince Walton MD Unavailable [phone] Carl Alicea Unavailable +[phone] Heidy Kenny MD Unavailable [phone] Elijah Alas MD Unavailable [phone] Elijah Alas MD Unavailable [phone] Encounter Details Date Type Department Care Team (Late st Contact Info) Description 02/12/2020 Orders Only [facility] [address] [place] [address] Scanning, Provider Social History Tobacco Use Types Packs/Day Years Used Date Smoking Tobacco: Never Smokeless Tobacco: Never Alcohol Use Standard Drinks/Week Comments Yes 0 (1 standard drink = 0.6 oz pur e alcohol) PHQ-2 Answer Date Recorded PHQ-2 Score 5 12/22/2019 Comments Unknown Sex and Gender Information Value Date Recorded Sex Assigned at Not on file 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 Gender Identity Not on file Sexual Orientation [...] on filedocumented in this encounter Care Teams Fiscal Accountant Relationship Specialty Start Date End Date Clinton Ramirez MD [address] [place] [address] PCP - General 03/01/19 05/08/20 Clinton Ramirez MD [address] [address] PCP - General Infectious Diseases 05/09/20 Raulito Weathers, JESSICA Registered Nurse 07/22/17 Dagoberto Katz MD [address] [place] [address] [place] [address] Consulting Physician Psychiatry 08/23/99 08/11/23 Sherman Milton MD [address] [place] [address] Consulting Physician Otolaryngology 03/21/19 Ilan Olsen MD [address] [place] [address] Consulting Physician Otolaryngology 03/21/19 Ganesh Hess MD [address] [place] [address] Consulting Physician Obstetrics and Gynecology 03/21/19 Evan Lozano MD [address] [place] [address] Consulting Physician Urology 12/06/17 Nicola Méndez DO [id number] [place] [address] Automatic Washer Mechanic Obstetrics and Gynecology 02/02/19 Sherman Milton MD [address] [place] [address] Consulting Physician Otolaryngology 11/14/19 04/14/23 Ilan Crowley MD [id number] [place] [address] Anesthesiologist Anesthesiology 02/02/20 04/14/23 Juventino Keith MD [address] [place] [address] [id number] [place] [address] Referring Physician Rheumatology 05/09/20 Vince Walton MD [address] [facility] [address] Se[address] [facility] [address] [place] [address] Surgeon Orthopedic Surgery 10/03/20 Carl Alicea PA [address] [facility] [address] [place] [address] Physician Benefits Consultant Orthopedic Surgery 10/17/20 Heidy Kenny MD 3 [facility] [address] [facility] [address] [place] [address] Consulting Physician Neurosurgery 07/13/22 Elijah Alas MD 3 [facility] [address] [facility] [address] [place] [address] Consulting Physician Anesthesiology 04/15/23 Elijah Alas MD [address] [facility] [address] [place] [address] Consulting Physician Anesthesiology 08/12/23 08/12/23 documented as of this encounter
--- OUTSIDE RECORDS SUMMARY | 2024-09-26 15:16 | XMS_ITS | Encounter Summary ---
Author Organization [facility] Address [address] [place] [address] Phone Care Team Providers Care Bus Driver Supervisor Name Role Phone Raulito Weathers RN Unavailable Unavailabl e Dagoberto Katz MD Unavailable [phone] Sherman Milton MD Unavailable Ilan Olsen MD Unavailable +[phone] Ganesh Hess MD Unavailable [phone] Evan Lozano MD Unavailable Pebbles Méndezgreciabrandy [place]ERO Unavailable Sherman Milton MD Unavailable Ilan Crowley MD Unavailable [phone] Clinton Ramirez MD Primary Care Provider [phone] Juventino Keith MD Unavailable [phone] Vince Walton MD Unavailable [phone] Carl Alicea Unavailable +[phone] Heidy Kenny MD Unavailable [phone] Elijah Alas MD Unavailable [phone] Elijah Alas MD Unavailable [phone] Encounter Details Date Type Department Care Team (Late st Contact Info) Description 11/04/2021 Orders Only [facility] [address] [place] [address] Clinton Ramirez MD [address] [place] [address] Social History Tobacco Use Types Packs/Day Years [...] on file 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 Gender Identity Not on file Sexual Orientation [...] on filedocumented in this encounter Care Teams Bus Driver Supervisor Relationship Specialty Start Date End Date Clinton Ramirez MD [address] [place] [address] PCP - General Infectious Diseases 05/09/20 Raulito Weathers, RN Registered Nurse 07/22/17 Dagoberto Katz MD [address] [place] [address] [place] [address] Consulting Physician Psychiatry 08/23/99 08/11/23 Sherman Milton MD [address] [place] [address] Consulting Physician Otolaryngology 03/21/19 Ilan Olsen MD [address] [place] [address] Consulting Physician Otolaryngology 03/21/19 Ganesh Hess MD [address] [place] [address] Consulting Physician Obstetrics and Gynecology 03/21/19 Evan Lozano MD [address] [place] [address] Consulting Physician Urology 12/06/17 Nicola Méndez DO [id number] [place] [address] Accountant Systems Obstetrics and Gynecology 02/02/19 Sherman Milton MD [address] [facility] [address] [place] [address] Consulting Physician Otolaryngology 11/14/19 04/14/23 Ilan Crowley MD [address] [facility] [id number] [place] [address] Anesthesiologist Anesthesiology 02/02/20 04/14/23 Juventino Keith MD [address] [place] [address] Referring Physician Rheumatology 05/09/20 Vince Walton MD [address] [facility] [address] [facility] [address] [place] [address] Surgeon Orthopedic Surgery 10/03/20 Carl Alicea PA [address] [facility] [address] [place] [address] Physician Auditing Manager Orthopedic Surgery 10/17/20 Heidy Kenny MD [address] [facility] [address] [place] [address] Consulting Physician Neurosurgery 07/13/22 Elijah Alas MD 3 [facility] [address] [facility] [address] [place] [address] Consulting Physician Anesthesiology 04/15/23 Elijah Alas MD [address] [facility] [address] [place] [address] Consulting Physician Anesthesiology 08/12/23 08/12/23 documented as of this encounter
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
--- OUTSIDE RECORDS SUMMARY | 2024-09-26 15:16 | XMS_ITS | Patient Health Record ---
Author Organization [facility] [employer] Address [address] [place] [address] Care Team Providers Care Fire Prevention Officer Name Role Phone Clinton Ramirez MD Primary Care Provider Unavailab Kym France Unavailable [phone] Umu Saravia Unavailable [phone] Allergies Allergen (clinical drug ingredient) Drug/Non Drug Allergy documented on EMR Reaction Allergy Type Onset Date Status paroxetine Paxil Unknown Drug Allergy 05/28/2023 Activ e Results Component Value Reference Range Notes Hydroxyalprazolam Reviewed date:06/05/2024 12:45:02 PM Interpretation: Performing Lab:, [facility], [place], [address] [place] [address], Director - [id number] Notes/Report: An exception occurred while processing this report and so it has incomplete data. Please contact [employer] for assistance. Hydroxyalprazolam 101.0 20.0 ng/mL [...] Not Medicated Consistent Not Medicated Consistent Specific [place] 1.009 1.003 - 1.030 pH 5.3 3.0 [...] Oxazepam (BZO) P 0 - 300 ng/ml [id number]-1,8-tcrlvjpt-5, 3-dipheny lpyrrolidine (EDDP) N 0 - 300 ng/ml Methamphetamine (MET) N 0 - 1000 ng/ml Methylenedioxymethamphetamine (MDMA) N 0 - 500 ng/ml Morphine (MOP 300/HFM4210) P 0 - 300 ng/ml Methadone (MTD) N 0 - 300 ng/ml Phencyclidine (PCP) N 0 - 25 ng/ml Nortriptyline (TCA) N 0 - 1000 ng/ml Oxycodone N 0 - 300 ng/ml x N 0 - 300 ng/ml Reason For Referral No Information Medications Medication SIG (Take, Route, Frequency, Duration) Notes Start Date End Date Status QUEtiapine Fumarate 50 MG 1 tablet at bedtime Orally Once a day; Duration: 30 days Active ADALIMUMAB 40 MG/0.4 ML SUBCUTANEOUS PEN KIT *Reorder from [facility] for eRx and Interaction Alerts* 05/28/2023 Unknown ALPRAZolam 0.5 MG 0.5 tablet Orally four times daily as needed for anxiety; Duration: 30 days 04/27/2024 Active LINACLOTIDE 290 MCG CAPSULE *Reorder from [facility] for eRx and Interaction Alerts* 05/28/2023 Unknown oxyBUTYnin Chloride ER 15 MG Oral 05/28/2023 Unknown Gabapentin 100 MG 1 capsule Oral Once a day; Duration: 30 days Active Ipratropium-Albutero l 0.5-2.5 (3) MG/3ML Inhalation 05/28/2023 Unknown TRIAMCINOLONE (BULK) *Reorder fr [facility] for eRx and Interaction Alerts* 05/28/2023 Unknown Ferrous Sulfate 325 (65 Fe) MG Oral 05/28/2023 Unknown Methotrexate 2.5 MG Oral 05/28/2023 Unknown Naloxone HCl 4 MG/0.1ML Nasal 05/28/2023 Unknown Montelukast Sodium 10 MG Oral 05/28/2023 Unknown Folic Acid 1 MG Oral 05/28/2023 Unk nown ProAir HFA 108 (90 Base) MCG/ACT Inhalation 05/28/2023 Unknown ALPRAZolam 1 MG TAKE 1/2 TABLET ORAL FOUR TIMES DAILY NEEDED FOR ANXIETY 30 DAYS; Duration: 30 08/31/2024 Active FLUoxetine HCl 20 MG 3 capsule Orally Once a day; Duration: 30 days 05/04/2024 Active Acetaminophen 325 MG Oral 05/28/2023 Unknown Zaleplon 10 MG 1 capsule every night Orally Once a day; Duration: 30 days 06/09/2024 Active hydrOXYzine HCl 25 MG Oral 05/28/2023 Not-Taking FLUoxetine HCl 20 MG Oral 05/28/2023 Unknown ALPRAZOLAM ODT 0.5 mg Oral *Reorder from [employer] for eRx and Interaction Alerts* 05/28/2023 Not-Taking HYDROcodone-Acetamin ophen 10-325 MG Oral 05/28/2023 Unknown CETIRIZINE 10 MG CAPSULE *Reorder from [employer] for eRx and Interaction Alerts* 05/28/2023 Not-Taking Esomeprazole Magnesium 40 MG Oral 05/28/2023 Unknown [...] Risk Notes Problem Moderate recurrent major depression (56401774) Major depressive disorder, recurrent, moderate (F33.1) Active confirmed Problem Generalized anxiety disorder (62930112) Generalized anxiety disorder (F41.1) Active confirmed Problem Posttraumatic stress disorder (20277858) Post-traumatic stress disorder, chronic (F43.12) Active confirmed Problem Primary insomnia (4805486) Primary insomnia (F51.01) Active confirmed Problem Insomnia disorder related to another mental disorder (85299594) Insomnia due to other mental disorder (F51.05) Active confirmed Problem Attention deficit hyperactivity disorder, combined type (72797177) Attention-deficit hyperactivity disorder, combined type (F90.2) Active confirmed Vital Signs Heart Rate 71 /min 05/26/2024 Blood pressure diastolic 83 mm Hg 05/26/2024 Height-cm 160.02 cm 05/26/2024 Weight-kg 50.8 kg 05/26/2024 Height 63.00 in 05/26/2024 Blood pressure systolic 116 mm Hg 05/26/2024 Weight 112 lbs 05/26/2024 BMI 19.84 kg/m2 05/26/2024 Encounters Encounter Location Date Provider Diagnosis [address] [address] 09/30/2023 Umu Rani Major depressive disorder, recurrent, moderate F33.1 ; Generalized anxiety disorder F41.1 ; Post-traumatic stress disorder, chronic F43.12 and Attention-deficit hyperactivity disorder, combined type F90.[address] [address] 09/30/2023 Kym Espinal Major depressive disorder, recurrent, moderate F33.1 ; Generalized anxiety disorder F41.1 ; Post-traumatic stress disorder, chronic F43.12 ; Insomnia due to other mental disorder F51.05 and Attention-deficit hyperactivity disorder, combined type F90.[address] [address] 10/11/2023 Umu Rani Major depressive disorder, recurrent, moderate F33.1 ; Generalized anxiety disorder F41.1 ; Post-traumatic stress disorder, chronic F43.12 and Attention-deficit hyperactivity disorder, combined type F90.[address] [address] 10/29/2023 Umu Rani Major depressive disorder, recurrent, moderate F33.1 ; Generalized anxiety disorder F41.1 ; Post-traumatic stress disorder, chronic F43.12 and Attention-deficit hyperactivity disorder, combined type F90.[address] [address] 11/22/2023 Umu Rani Major depressive disorder, recurrent, moderate F33.1 ; Generalized anxiety disorder F41.1 ; Post-traumatic stress disorder, chronic F43.12 and Attention-deficit hyperactivity disorder, combined type F90.2 [facility] [place], [facility] [address] [place] [address] 12/10/2023 Umu Saravia Major depressive disorder, recurrent, moderate F33.1 ; Generalized anxiety disorder F41.1 ; Post-traumatic stress disorder, chronic F43.12 and Attention-deficit hyperactivity disorder, combined type F90.2 [facility] [address] [place] [address] 01/07/2024 Kym Kurilla Major depressive disorder, recurrent, moderate F33.1 ; Generalized anxiety disorder F41.1 ; Post-traumatic stress disorder, chronic F43.12 ; Attention-deficit hyperactivity disorder, combined type F90.2 and Primary insomnia F51.01 [facility] [address] [place] [address] 05/26/2024 Kym Kurilla Major depressive disorder, recurrent, moderate F33.1 ; Generalized anxiety disorder F41.1 ; Post-traumatic stress disorder, chronic F43.12 ; Attention-deficit hyperactivity disorder, combined type F90.2 ; Primary insomnia F51.01 ; Encounter for screening for cardiovascular disorders Z13.6 and Encounter for screening for depression Z13.31 [place] [address] [facility] [address] [place] [address] 11/19/2023 Kym Kurilla Generalized anxiety disorder F41.1 [facility] [address] [place] [address] 11/19/2023 Kym Kurilla [facility] [place], [facility] [address] [place] [address] 01/05/2024 Kym Kurilla [facility] [place], [facility] [address] [place] [address] 02/10/2024 Kym Kurilla Primary insomnia F51 .01 [facility] [address] [place] [address] 03/14/2024 Kym Kurilla Major depressive disorder, recurrent, moderate F33.1 and Post-traumatic stress disorder, chronic F43.12 [facility] [address] [place] [address] 03/14/2024 Kym Kurilla Attention-deficit hyperactivity disorder, combined type F90.2 [facility] [address] [place] [address] 03/24/2024 Kymcaroline Espinal [facility] [place], [facility] [address] [place] [address] 03/24/2024 Kymcaroline Garciailla [facility] [place], [place] [address] [place] [address] 03/24/2024 Kym Kurilla [facility] [place], [facility] [address] [place] [address] 05/02/2024 Kymcaroline Espinal [facility] [place], [facility] [address] [place] [address] 05/02/2024 Kymcaroline Espinal [facility] [place], [facility] [address] [place] [address] 05/03/2024 Kymcaroline Espinal [facility] [place], [place] [address] [place] [address] 05/03/2024 Kym Kurilla [facility] [place], [facility] [address] [place] [address] 05/04/2024 Kymcaroline Espinal Major depressive disorder, recurrent, moderate F33.1 [facility] [place], [place] [address] [place] [address] 06/08/2024 Kym Kurilla [facility] [place], [place] [address] [place] [address] 07/13/2024 Kym Kurilla [facility] [place], [place] [address] [place] [address] 09/06/2024 Kymcaroline Espinal Major depressive disorder, recurrent, moderate F33.1 and Generalized anxiety disorder F41.1 [facility] [place], [place] [address] [place] [address] 09/06/2024 Kymcaroline Espinal Assessments Encounter Date Diagnosis (ICD Code) Assessment Notes Treatment Notes Treatment Clinical Notes Section Notes 09/30/2023 Major depressive disorder, recurrent, moderate (ICD-10 [...] disorder, recurrent, moderate (ICD-10 - F33.1) 03/14/2024 Attention-deficit hyperactivity disorder, combined type (ICD-10 - F90.2) 05/04/2024 Major depressive disorder, recurrent, moderate (ICD-10 - F33.1) 05/26/2024 Major depressive disorder, recurrent, moderate (ICD-10 - F33.1) 02/10/2024 Primary insomnia (ICD-10 - F51.01) 03/14/2024 Major depressive disorder, recurrent, moderate (ICD-10 - F33.1) 09/06/2024 Major depressive disorder, recurrent, moderate (ICD-10 - F33.1) 09/06/2024 Generalized anxiety disorder (ICD-10 - F41.1) 03/14/2024 Post-traumatic stress disorder, chronic (ICD-10 - [...] Generalized anxiety disorder (ICD-10 - F41.1) 09/30/2023 Post-traumatic stress disorder, chronic (ICD-10 - F43.12) Client has been having increased panic attacks due to having to get legal papers, related to her divorce, together. Therapist actively listened to client and asked questions for clarification.a nd helpedher to explore strategies to reduce her [...] stress disorder, chronic (ICD-10 - F43.12) 05/26/2024 Attention-deficit hyperactivity disorder, combined type (ICD-10 - F90.2) 01/07/2024 Primary insomnia (ICD-10 - F51.01) 01/07/2024 Attention-deficit hyperactivity disorder, combined type (ICD-10 - F90.2) 12/10/2023 Attention-deficit hyperactivity disorder, combined type (ICD-10 - F90.2) 11/22/2023 Attention-deficit hyperactivity disorder, combined type (ICD-10 - F90.2) 10/29/2023 Attention-deficit hyperactivity disorder, combined type (ICD-10 - F90.2) 10/11/2023 Attention-deficit hyperactivity disorder, combined type (ICD-10 - F90.2) 09/30/2023 Insomnia due to other mental disorder (ICD-10 - F51.05) 09/30/2023 Attention-deficit hyperactivity disorder, combined type (ICD-10 - F90.2) 09/30/2023 Attention-deficit hyperactivity disorder, combined type (ICD-10 - F90.2) 05/26/2024 Primary insomnia (ICD-10 - F51.01) 05/26/2024 Encounter for screening for cardiovascular disorders (ICD-10 - Z13.6) 05/26/2024 Encounter for screening for depression (ICD-10 - Z13.31) 09/30/2023 Other Start Prazosin 1mg qHS for [...] effects of psychotropic medications. -Crisis prevention hotline 127. Plan Of Treatment Pending Test Test Name Order Date UDT 01/07/2024 Next Appt Details Provider Name:Kym Salazar shiloh, 09/28/2024 11:45:00 AM, [address], [facility] [address], [place], [address], Insurance Providers Payer Name Payer Address Payer Phone Subscriber Number Group Number Insured Name Patient Relationship to Insured Coverage Start Date Coverage End Date [facility] Medicare Replacement/ Advantage - Hmo [address] [place] [address] [id number] GERTRUDIS Gastelum Self - patient is [...]
--- OUTSIDE RECORDS SUMMARY | 2024-09-26 15:16 | XMS_ITS | Referral Summary ---
Author Organization [facility] Address [address] [place] [address] Care Team Providers Care Manager Of Transportation Name Role Phone Raulito Weathers RN Unavailable Unavailabl Sherman Lawrence MD Unavailable [phone] Ilan Olsen MD Unavailable [phone] Ganesh Hess MD Unavailable [phone] Evan Lozano MD Unavailable [phone] Nicola Méndez DO Unavailable Clinton Ramirez MD Primary Care Provider [phone] Juventino Keith MD Unavailable [phone] Vince Watlon MD Unavailable [phone] Carl Alicea Unavailable [phone] Heidy Kenny MD Unavailable [phone] Elijah Alas MD Unavailable [phone] Encounters Date Type Department Care Team Description 08/31/2024 3:11 PM CDT - 08/31/2024 11:59 PM CDT Hospital Encounter [facility] [address] [facility] [address] [address] [place] [address] Tran Mittal NP Spondylosis of lumbar region without myelopathy or radiculopathy (Primary Dx); Spondylosis of cervical region without myelopathy or radiculopathy; terminal block assembler (current) use of opiate analgesic; Neuropathy of left sciatic nerve; Chronic constipation Discharge Disposition: Discharge to home or self care 08/14/2024 Telephone [facility] [address] [facility] [address] [place] [address] Clinton Ramirez MD 08/10/2024 3:45 PM CDT - 08/10/2024 11:59 PM CDT Hospital Encounter [facility] 2 [facility], [address] [place] [address] Tran Mittal NP Myalgia, other site Discharge Disposition: Discharge to home or self care 08/01/2024 Orders Only [facility] 4 [facility] [address] [place] [address] Carl Alicea PA Patellofemoral pain syndrome of both knees (Primary Dx) 07/31/2024 2:55 PM CDT Ancillary Procedure [facility] Imaging at [address] [address] Bilateral anterior knee pain 07/31/2024 2:50 PM CDT Ancillary Procedure [facility] at [address] [phone] Bilateral anterior knee pain 07/31/2024 3:00 PM CDT Office Visit [facility] [address] [place] [phone] Carl Alicea PA Patellofemoral pain syndrome of both knees (Primary Dx); Other tear of lateral meniscus of left knee as current injury, initial encounter 07/20/2024 7:28 AM CDT - 07/20/2024 11:59 PM CDT Hospital Encounter [facility] 2 [facility] [place] [address] Elijah Alas MD Myalgia, other site (Primary Dx) Discharge Disposition: Discharge to home or self care 07/05/2024 2:45 PM CDT Office Visit [facility] [address] [place] [phone] Carl Alicea PA Impingement syndrome of right shoulder (Primary Dx); Biceps tendinitis of right upper extremity; Tear of right rotator cuff, unspecified tear extent, unspecified whether traumatic; Superior glenoid labrum lesion of right shoulder, subsequent encounter; Subacromial bursitis of both shoulders from Last 3 Months Allergies Active Allergy [...] tablet Take 1 tablet by mouth daily [facility] [place]. 12/15/19 23 Active methotrexate 2.5 mg tablet [...] reversal or respiratory depression 1 each 02/04/20 23 025 Discontin ued(Reord er) cyclobenzaprine (FLEXERIL) 5 [...] by mouth daily 30 capsule 2 05/13/19 25 025 Discontin ued(Reord er) HYDROcodone-aceta minophen (NORCO) 10-325 mg per tabletIndications :Pain Take 0.5 tablets by mouth 4 (four) times a day as needed for pain 60 tablet 08/12/19 25 025 Discontin ued(Reord er) Active Problems Problem Noted Date Diagnosed Date Spondylosis of cervical yvon on without myelopathy or radiculopathy 02/01/2024 Primary insomnia 01/07/2024 Overview (01/29/2024): [facility]. Facet arthropathy, cervical 04/22/2023 Other chest pain 04/09/2023 Assessment & Plan (04/15/2023 2:29 PM CARBON PAPER COATING MACHINE SETTER): She was in the [facility] ER recently with chest pain. She [...] week. Recommend that she follow-up with her employment counselor for this problem. If she wants a [...] [place]. Assessment & Plan (01/05/2023 3:32 PM CARBON PAPER COATING MACHINE SETTER): She had surgery on the left shoulder about two years ago consisting of arthroscopy, distal claviculectomy and rotator cuff repair. The biceps tendon was repaired or manipulated. Recent imaging at [facility] as part of her evaluation for [...] infraspinatus tear, ordered by Orthopedics, performed at [facility]. Sleep disorder 08/23/2019 Overview (08/22/2020): Details lacking, sees Dr. Durham. Patient says she might have narcolepsy. She is on Sonata to help her fall asleep. Assessment & Plan (04/12/2021 4:32 PM CARBON PAPER COATING MACHINE SETTER): She may have narcolepsy or a related [...] remedy. Assessment & Plan (04/03/2021 5:10 PM CARBON PAPER COATING MACHINE SETTER): Movantik was not working and was expensive. She would like Linzess instead which helped her in the past. We sent in a prescription. longterm (current) use of opiate analgesic 05/23 Rheumatoid arthritis of [facility] sites with negative rheumatoid factor 12/08/2017 Assessment & Plan (08/25/2023 3:41 PM CDT): Chronic, fair control. She self regulates her methotrexate dosing and did take a lower dose last week with improvement of her facial rash, see discussion elsewhere. She will follow-up with her employment counselor, Dr. Keith, for this condition. Assessment & [...] needed. Assessment & Plan (04/12/2021 4:32 PM CARBON PAPER COATING MACHINE SETTER): She sees Dr. Keith. She is on [...] same. Assessment & Plan (04/01/2019 3:36 PM CARBON PAPER COATING MACHINE SETTER): She was diagnosed with seronegative rheumatoid arthritis, [...] Had a urethral sling. Unremarkable kidney USN, [facility], 06/25/2021, Dr. Lozano. Assessment & Plan (04/15/2023 2:28 PM CARBON PAPER COATING MACHINE SETTER): She is not tolerating oxybutynin. It is making her anxiety worse. She previously tolerated Myrbetriq, so we sent that in instead. Assessment & Plan (09/08/2020 4:00 PM CDT): She requested a referral back to Dr. Lozano for a follow up. Assessment & Plan (04/01/2019 3:34 PM CARBON PAPER COATING MACHINE SETTER): She has an overactive bladder as well as stress incontinence. She had a urethral sling a little over one year ago. She sees Dr. Evan Lozano as needed. He has her on oxybutynin. She has urinary frequency, but no dysuria or hematuria. Continue same. Raynaud's disease without gangrene 08/22/2017 Overview (03/21/2019): On nifedipine. Assessment & Plan (09/08/2020 3:50 PM CDT): Her employment counselor decreased the dose of nifedipine to 30 mg daily. Continue same. Chronic pain 05/06/2016 Overview (03/20/2019): From [facility]. Assessment & Plan (04/15/2023 2:28 PM CARBON PAPER COATING MACHINE SETTER): She takes hydrocodone for more severe pain [...] symptoms that prompted a visit to the [facility] ER. . She had chest pain [...] (05/07/2022 3:00 PM CDT): She sees Dr. Crwoley in pain management. Continue same. Assessment & Plan (04/03/2021 5:10 PM CARBON PAPER COATING MACHINE SETTER): She sees Dr. Crowley. Her most recent [...] well. Assessment & Plan (03/21/2019 11:26 AM CARBON PAPER COATING MACHINE SETTER): In addition to her back, she has [...] PM CDT): She was seen in the [facility] ER recently for abdominal pain and [...] sent. Assessment & Plan (03/21/2019 11:27 AM CARBON PAPER COATING MACHINE SETTER): She is diagnosed with fibromyalgia. She sees [...] finances. Assessment & Plan (04/15/2023 2:18 PM CARBON PAPER COATING MACHINE SETTER): She has a lot of anxiety as [...] alternatives. Assessment & Plan (04/03/2021 5:08 PM CARBON PAPER COATING MACHINE SETTER): She has been seeing Dr. Katz for [...] today. Assessment & Plan (04/01/2019 3:36 PM CARBON PAPER COATING MACHINE SETTER): She had a very traumatic upbringing. Her [...] does have a psychiatrist, Dr. Katz, in [place]. She is on several medications to help [...] by neurosurgery, Dr. Heidy Kenny in about [phone]. No surgery recommended. Assessment & Plan (08/25/2023 [...] bladder. Assessment & Plan (04/01/2019 3:32 PM CARBON PAPER COATING MACHINE SETTER): She sees Dr. Westbrook for pain management. [...] same. Assessment & Plan (04/03/2021 5:12 PM CARBON PAPER COATING MACHINE SETTER): She has DuoNebs and a canister albuterol [...] same. Assessment & Plan (02/12/2020 3:38 PM CARBON PAPER COATING MACHINE SETTER): Patient is reporting increased congestion and chest [...] asthma. Assessment & Plan (03/21/2019 11:28 AM CARBON PAPER COATING MACHINE SETTER): She has had mild asthma with seasonal [...] note. Assessment & Plan (04/12/2021 4:37 PM CARBON PAPER COATING MACHINE SETTER): She called not too long ago with [...] before her surgery, either ordered by her employment counselor or ordered by Dr. Walton so we can review them. Likewise for any EKG that is ordered. COVID-19 03/24/2020 05/05/2022 Overview (05/05/2022): Postive test. Followed by a month or more of post Covid congestion, saw BENITO Reed. Assessment & Plan (03/21/2021 12:17 PM CARBON PAPER COATING MACHINE SETTER): Patient tested positive for covid on Monday [...] Reed. Assessment & Plan (02/12/2020 3:36 PM CARBON PAPER COATING MACHINE SETTER): Patient has congestion, sinus pressure and ear [...] on file 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 CARBON PAPER COATING MACHINE SETTER Gender Identity Not on file [...] 07/31/2024 2:59 PM CDT Plan of Treatment Not on file [...] as needed Medical Devices Implanted Type Area Assistant Head Cashier Device Identifier Shelf Expiration Date Model / Serial / Lot [employer] 2504-1 Regenerate Tendon [employer] Suture - [id number] Implanted:Qty: 1 on 10/17/2020 by Vince Walton MD at [facility] Left: Shoulder [employer] 02/13/2023 2504-1 / / [id number] [employer]/Or tho 4565 Implant Medium Arthroscopic Bioinductive W/ Delivery Device - [id number] Implanted:Qty: 1 on 10/17/2020 by Vince Walton MD at [facility] Left: Shoulder [employer]/Or tho 04/12/2021 [id number] / / [id number] [employer] Nephew/Rich[employer]/Or tho 4403 [employer] Bone With Arthroscopic Delivery System Advanced - [id number] Implanted:Qty: 1 on 10/17/2020 by Vince Walton MD at [facility] Left: Shoulder [employer]/Or tho 12/28/2022 [id number] / / [id number] Procedures Procedure Name Priority Date/Time Associated Diagnosis [...] the physician's procedure / OR operative note. Elijah Alas MD IMG PAIN MGMT PROCEDURE [...] Impressions Clinton Ramirez MD - 06/24/2022 Negative, [facility]. Narrative Clinton Ramirez MD - 06/24/2022 See scanned report. Clinton Ramirez MD HEALTH MAINTENANCE Final Resu lt * PAP SMEAR WITH HPV (02/02/2019) Pathologist [facility] Pap smear Normal Comment:See scanned result. us Naomasa Hase DO HEALTH MAINTENANCE Final Result from Last 3 Months or Most Recently Relevant to Health Maintenance Insurance [facility] MEDICARE GOLD [employer] ADVANTAGE CHOICE PPO [employer] ADVANTAGE CHOICE PPO Care Teams Manager Of Transportation Relationship Specialty Start Date End Date Clinton Ramirez MD [address] [place] [address] PCP - General Infectious Diseases 05/09/20 Raulito Weathers, JESSICA Registered Nurse 07/22/17 Sherman Milton MD [address] [place] [address] Consulting Physician Otolaryngology 03/21/19 Ilan Olsen MD [address] [place] [address] Consulting Physician Otolaryngology 03/21/19 Ganesh Hess MD [address] [place] [address] Consulting Physician Obstetrics and Gynecology 03/21/19 Evan Lozano MD [address] [place] [address] Consulting Physician Urology 12/06/17 Nicola Méndez DO [id number] [place] [address] Health Sciences Dean Obstetrics and Gynecology 02/02/19 Juventino Keith MD [address] [place] [address] Referring Physician Rheumatology 05/09/20 Vince Walton MD [address] [facility] [address] [facility] [address] [place] [address] Surgeon Orthopedic Surgery 10/03/20 Carl Alicea PA [address] [facility] [place] [address] Physician Senior Licensing Manager Orthopedic Surgery 10/17/20 Heidy Kenny MD [address] [address] Consulting Physician Neurosurgery 07/13/22 Elijah Alas MD [facility] [address] [address] Consulting Physician Anesthesiology 04/15/23
--- OUTSIDE RECORDS SUMMARY | 2024-09-26 15:16 | XMS_ITS ---
Author Organization [facility] [place] ([address]) Address [address] [place] [address] Care Team Providers Care Lead Java Software Engineer Name Role Phone Clinton Ramirez Primary Care Provider UnavailDr. Fredrick Landaverde Unavailable [phone] ZZ-Migration, Provider Unavailable Unavailab le Allergies Allergen (clinical drug ingredient) Drug/Non Drug Allergy documented on EMR Reaction Allergy Type Onset Date Status paroxetine Paxil rash Drug Allergy Active REASON FOR VISIT [facility] Conversion Encounter Medications Medication SIG (Take, Route, Frequency, Duration) Notes Start Date End Date Status Omeprazole 20 MG 1 cap(s) orally once a day; Duration: 30 day(s) Active Naratriptan HCl 2.5 MG 1 tab orally bid prn; Duration: 30 days Active Linzess 72 MCG 1 cap(s) orally once a day Active Cyclobenzaprine HCl 10 MG 1 tab(s) orally 3 times a day Active Ferrous Sulfate 325 (65 Fe) MG 1 tab(s) orally once a day; Duration: 30 day(s) Active ALBUTEROL (EQV-PROAIR HFA) 90 MCG/INH 2 PUFF(S) INHALED EVERY 6 HOURS *Please review for potential replacement for e-prescription and drug interaction check* Active Leflunomide 10 MG 1 tab(s) orally once a day; Duration: 30 day(s) Active HUMIRA PEN CROHNS/ULCER COLITIS/HIDRADENITIS SUPPURATI STRPK 40 MG/0.8 ML DIRECTED SUBCUTANEOUSLY EVERY OTHER WEEK *Please review for potential replacement for e-prescription and drug interaction check* Active CeleBREX 200 MG 1 cap(s) orally once a day; Duration: 30 day(s) Active Folic Acid 1 MG 1 tab(s) orally once a day; Duration: 30 day(s) Active Zaleplon 10 MG 5 cap(s) orally once a day (at bedtime) Active Diclofenac Sodium 3 % 1 casey applied topically 2 times a day; Duration: 90 day(s) Active Gabapentin 100 MG 1 cap(s) orally HS Active traMADol HCl 50 MG 1 tab(s) orally every 6 hours Active HYDROcodone Bitartrate ER 10 MG 1 cap(s) orally every 12 hours; Duration: 30 day(s) Active ALPRAZolam 1 MG 1 tab(s) orally every 8 hours Active SEROquel 25 MG 1 tab(s) orally HS Active PROzac 20 MG 1 cap(s) orally once a day; Duration: 30 day(s) Active Multivitamin - 1 tab(s) orally once a day; Duration: 30 day(s) Active Encounters Encounter Location Date Provider Diagnosis [address] [address] 08/07/2023 Provider ZZ-Migration Plan Of Treatment No Information Progress Notes * Vernell VALADEZOB:1970 ([age] yo F)Acc No.[id number]:08/07/2023 Patient: Azeb NOGUERA Provider: Link Coleman :1970 A ge:53 Y S ex:Female Date:08/07/2023 Address:[address] Pcp:Clitnon Ramirez Subjective: * Chief Complaints: * 1 [...] * Electronic signature of Barbara CONTRERAS-Migration on 09/26/2024 at 03:15 PM CDT Sign off status: Pending * Provider: Link weeks Migration Date: 08/07/2023 Generated for Zain villa/Aj/Jozef on: 09/26/2024 03:15 PM CDT
--- OUTSIDE RECORDS SUMMARY | 2024-09-26 15:16 | XMS_ITS | Encounter Summary ---
Author Organization [facility] Address [address] [place] [address] Phone Care Team Providers Care Tester Vibrator Equipment Name Role Phone Florentino Bo MD Primary Care Provider [phone] Raulito Weathers RN Unavailable Unavailabl e Clinton Ramirez MD Primary Care Provider [phone] Ayaz Westbrook MD Unavailable [phone] Dagoberto Katz MD Unavailable [phone] Lucas Rachel MD Unavailable [phone] Sherman Milton MD Unavailable [phone] Ilan Olsen MD Unavailable [phone] Ganesh Hess MD Unavailable [phone] Evan Lozano MD Unavailable [phone] Nicola Méndez DO Unavailable Sherman Milton MD Unavailable Ilan Crowley MD Unavailable [phone] Clinton Ramirez MD Primary Care Provider [phone] Juventino Keith MD Unavailable [phone] Vince Walton MD Unavailable [phone] Carl Alicea Unavailable [phone] Heidy Kenny MD Unavailable Elijah Alas MD Unavailable Elijah Alas MD Unavailable Encounter Details Date Type Department Care Team (Late st Contact Info) Description 06/11/2017 Orders Only [facility] [address] [place] [phone] Scanning, Provider Social History Tobacco Use Types Packs/Day Years Used Date Smoking Tobacco: Never Alcohol Use Standard Drinks/Week Comments No 0 (1 standard drink = 0.6 oz pur e alcohol) Comments Unknown Sex and Gender Information Value Date Recorded Sex Assigned at Not on file 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 Gender Identity Not on file Sexual Orientation [...] on filedocumented in this encounter Care Teams Tester Vibrator Equipment Relationship Specialty Start Date End Date Florentino Bo MD [address] [facility] [address] [facility] [address] [place] [address] PCP - General 07/03/11 02/28/19 Clinton Ramirez MD [address] [place] [address] PCP - General 03/01/19 05/08/20 Clinton Ramirez MD [address] [place] [address] PCP - General Infectious Diseases 05/09/20 Raulito Weathers, RN Registered Nurse 07/22/17 Ayaz Westbrook MD [address] [facility] [address] [place] [address] Consulting Physician Pain Management 03/21/19 02/01/20 Dagoberto Katz MD [address] [facility] [place] [address] Consulting Physician Psychiatry 08/23/99 08/11/23 Lucas Rachel MD [address] [facility] [place] [address] Consulting Physician Rheumatology 03/21/19 02/01/20 Sherman Milton MD [address] [facility] [address] [place], [place] [id number] Consulting Physician Otolaryngology 03/21/19 Ilna Olsen MD [address] [place], [place] [id number] Consulting Physician Otolaryngology 03/21/19 Ganesh Hess MD [address] [place] [address] Consulting Physician Obstetrics and Gynecology 03/21/19 Evan Lozano MD [address] [place] [address] Consulting Physician Urology 12/06/17 Nicola Méndez DO [id number] [place] [address] Double Needle Operator Lockstitch Obstetrics and Gynecology 02/02/19 Sherman Milton MD [address] [place] [address] Consulting Physician Otolaryngology 11/14/19 04/14/23 Ilan Crowley MD [id number] [place] [address] Anesthesiologist Anesthesiology 02/02/20 04/14/23 Juventino Keiht MD [id number] [place] [address] Referring Physician Rheumatology 05/09/20 Vince Walton MD [address] [facility] [address] [facility] [address] [place] [address] Surgeon Orthopedic Surgery 10/03/20 Carl Alicea PA [address] [facility] [address] [place] [address] Physician Cork Insulation Installer Orthopedic Surgery 10/17/20 Heidy Kenny MD [facility] [address] [place] [address] Consulting Physician Neurosurgery 07/13/22 Elijah Alas MD 3 [facility] [address] [facility] [address] [place] [address] Consulting Physician Anesthesiology 04/15/23 Elijah Alas MD [address] [facility] [address] [place] [address] Consulting Physician Anesthesiology 08/12/23 08/12/23 documented as of this encounter
--- OUTSIDE RECORDS SUMMARY | 2024-09-26 15:16 | XMS_ITS ---
Author Organization [facility] [place] ([address]) Address [address] [place] [address] Care Team Providers Care Karate Teacher Name Role Phone Clinton Ramirez Primary Care Provider Dr. Fredrick Frias Unavailable [phone] Hansa Wright Unavailable [phone] Allergies Allergen (clinical drug ingredient) Drug/Non Drug [...] orally bid prn; Duration: 30 days Active Omeprazole 20 MG 1 cap(s) orally once a day; Duration: 30 day(s) Active Cyclobenzaprine HCl 10 MG [...] once a day; Duration: 30 day(s) Active Leflunomide 10 MG 1 tab(s) orally once a day; Duration: 30 day(s) Active Folic Acid 1 MG 1 tab(s) orally once a day; Duration: 30 day(s) Active Gabapentin 100 MG 1 cap(s) orally HS Active HYDROcodone Bitartrate ER 10 MG 1 cap(s) orally every 12 hours; Duration: 30 day(s) Active Diclofenac Sodium 3 % 1 casey applied topically 2 times a day; Duration: 90 day(s) Active Zaleplon 10 MG 5 cap(s) orally once a day (at bedtime) Active traMADol HCl 50 MG 1 tab(s) orally every 6 hours Active PROzac 20 MG 1 cap(s) orally once a day; Duration: 30 day(s) Active SEROquel 25 MG 1 tab(s) orally HS Active ALPRAZolam 1 MG 1 tab(s) orally every 8 hours Active Multivitamin - 1 tab(s) orally once a day; Duration: 30 day(s) Active NARATRIPTAN 2.5 mg 1 tab orally bid prn; Duration: 30 days Active OMEPRAZOLE 20 mg 1 cap(s) orally once a day; Duration: 30 day(s) Active CYCLOBENZAPRINE 10 mg 1 tab(s) orally 3 times a day Active LEFLUNOMIDE 10 mg 1 tab(s) orally once a day; Duration: 30 day(s) Active LINZESS 72 mcg 1 cap(s) orally once a day Active FERROUS SULFATE 325 mg 1 tab(s) orally once a day; Duration: 30 day(s) Active FOLIC ACID 1 mg 1 tab(s) orally once a day; Duration: 30 day(s) Active TRAMADOL 50 mg 1 tab(s) orally every 6 hours Active DICLOFENAC TOPICAL 3% 1 casey applied topically 2 times a day; Duration: 90 day(s) Active CELEBREX 200 mg 1 cap(s) orally once a day; Duration: 30 day(s) Active HYDROCODONE 10 mg 1 cap(s) orally every 12 hours; Duration: 30 day(s) Active ZALEPLON 10 mg 5 cap(s) orally once a day (at bedtime) Active GABAPENTIN 100 mg 1 cap(s) orally HS Active ALPRAZOLAM 1 mg 1 tab(s) orally every 8 hours Active PROZAC 20 mg 1 cap(s) orally once a day; Duration: 30 day(s) Active SEROQUEL 25 mg 1 tab(s) orally HS Active MULTIVITAMIN Multiple Vitamins 1 tab(s) orally once a day; Duration: 30 day(s) Active Encounters Encounter Location Date Provider Diagnosis [facility] [address] [facility] [address] [place] [address] 02/03/2024 Hansavickie Wright Chronic migraine without aura, [...] * Vernell VALADEZOB:1970 ([age] yo F)Acc No.[id number]:02/03/2024 Progress Notes Patient: Azeb NOGUERA Provider: Bib Wright APRN :1970 A ge:53 Y S ex:Female Date:02/03/2024 Address:[address] Pcp:Clinton Ramirez Subjective: * Chief Complaints: * 1 . Headache follow-up. * HPI: * Introduction: HPI: Yesenia Valadez, who presented for follow-up for chronic migraine. * Initial History: INITIAL VISIT HISTORY: Azeb Valadez is a 52 year old woman with a h/o chronic cervicalgia, chronic daily headache, RA, fibromyalgia, who is referred for suspected chronic neck pain, bilateral upper extremity pain, and posterior head pain. Her PCP is Dr. Clinton Ramirez in [place], [place]. She reports that she was referred [...] a sense that her head felt too heavy. She did PT but does not remember [...] headache/migraine days/month: 30/10-15 L ast visit headache/migraine days/month:21/12- C urrent headache/migraine days/month: / I nterval [...] Management * Billing Information: * Visit Code: 75353 Office Visit, Est Pt., Level 4. Modifiers: 16904 Office Visit, Est Pt., Level 3. Modifiers: 20063 Office Visit, Est Pt., Level 5. Modifiers: 25 * Procedure Codes: 08661 PT-FOCUSED HLTH RISK ASSMT. G8427 DOC MEDS VERIFIED W/PT OR RE. G2211 Complex e/m visit add on. * Electronic signature of VIK Michael on 09/26/2024 at 03:16 PM CDT Sign off status: Pending * Provider: Bib Wright APRN Date: 1 04/05/2023 Generated for Zain villa/jA/Jozef on: 0 09/26/2024 03:16 PM CDT History and Physical Notes * HPI (History of Present Illness) Category Sub-Category Detail Notes Category Notes *Introduction HPI: Azeb Valadez, who presented for follow-up for chronic migraine *Initial History INITIAL VISIT HISTORY: Azeb Valadez is a 52 year old woman with a h/o chronic cervicalgia, chronic daily headache, RA, fibromyalgia, who is referred for suspected chronic neck pain, bilateral upper extremity pain, and posterior head pain. Her PCP is Dr. Clinton Ramirez in [place], [place]. She reports that she was referred [...] a sense that her head felt too heavy. She did PT but does not remember [...]
--- OUTSIDE RECORDS SUMMARY | 2024-09-26 15:16 | XMS_ITS ---
Author Organization [facility] Address [address] [facility] [address] [place] [address] Care Team Providers Care Manager Play Name Role Phone James JUDD, Clinton Primary Care Provider Kym Quinonez Unavailable [phone] Umu Multani Unavailable [phone] Social History Sex Assigned At : Social History Observation Description Sex Assigned At Female Encounters Encounter Location Date Provider Diagnosis [facility] [address] [facility] [address] [place] [address] 01/07/2024 Umu Multani Plan Of Treatment Next Appt Details Provider Name:Kym matamoros, 09/28/2024 11:45:00 AM, [address], [facility] [address], [place], [address], Progress Notes * GASTELUMNIHARIKA IRVINOB:1970 ( 54 yo F)Acc No.[id number]:01/07/2024 Patient: GERTRUDIS BENAVIDES Provider: Yesenia MULTANI LCSW :1970 A ge:53 Y S ex:Female Date:01/07/2024 [address]: [address] Pcp:Clinton Ramirez MD Data: * Chief Complaints: * Assessment: Plan: * Treatment: * Billing Information: * Visit Code: * Procedure Codes: * Electronic signature of Jessica Multani LCSW on 09/26/2024 at 03:15 PM CDT Sign off status: Pending Signatures: No Ad Hoc Signature Added * Provider: Yesenia MULTANI LCSW Date: 1 03/08/2023 Generated for Zain villa/Aj/Jozef on: 0 09/26/2024 03:15 PM SIMEONT
--- OUTSIDE RECORDS SUMMARY | 2024-09-26 15:17 | XMS_ITS | Encounter Summary ---
Author Organization [email or web address] Address [address] [place] [address] Phone Care Team Providers Care Patient Ombudsperson Name Role Phone Raulito Weathers RN Unavailable Unavailabl e Clinton Ramirez MD Primary Care Provider [phone] Dagoberto Katz MD Unavailable [phone] Sherman Milton MD Unavailable [phone] Ialn Olsen MD Unavailable [phone] Ganesh Hess MD Unavailable [phone] Evan Lozano MD Unavailable [phone] Nicola Méndez DO Unavailable Sherman Milton MD Unavailable [phone] Ilan Crowley MD Unavailable [phone] Clinton Ramirez MD Primary Care Provider [phone] Juventino Keith MD Unavailable [phone] Vince Walton MD Unavailable [phone] Carl Alicea Unavailable [phone] Heidy Kenny MD Unavailable [phone] Elijah Alas MD Unavailable [phone] Elijah Alas MD Unavailable [phone] Encounter Details Date Type Department Care Team (Late st Contact Info) Description 02/21/2020 Orders Only [facility] [address] [place] [address] Scanning, Provider Social History Tobacco Use Types Packs/Day Years Used Date Smoking Tobacco: Never Smokeless Tobacco: Never Alcohol Use Standard Drinks/Week Comments Yes 0 (1 standard drink = 0.6 oz pur e alcohol) PHQ-2 Answer Date Recorded PHQ-2 Score 5 12/22/2019 Comments Unknown Sex and Gender Information Value Date Recorded Sex Assigned at Not on file 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 Gender Identity Not on file Sexual [...] on filedocumented in this encounter Care Teams Patient Ombudsperson Relationship Specialty Start Date End Date Clinton Ramirez MD [address] [place] [address] PCP - General 03/01/19 05/08/20 Clinton Ramirez MD [address] [place] [address] PCP - General Infectious Diseases 05/09/20 Raulito Weathers, JESSICA Registered Nurse 07/22/17 Dagoberto Katz MD [address] [place] [address] [place] [address] Consulting Physician Psychiatry 08/23/99 08/11/23 Sherman Milton MD [address] [place] [address] Consulting Physician Otolaryngology 03/21/19 Ilan Olsen MD [address] [place] [address] Consulting Physician Otolaryngology 03/21/19 Ganesh Hess MD [address] [place] [address] Consulting Physician Obstetrics and Gynecology 03/21/19 Evan Lozano MD [address] [place] [address] Consulting Physician Urology 12/06/17 Nicola Méndez DO [id number] [place] [address] Plastics Design Engineer Obstetrics and Gynecology 02/02/19 Sherman Milton MD [address] [place] [address] Consulting Physician Otolaryngology 11/14/19 04/14/23 Ilan Crowley MD [id number] [place] [address] Anesthesiologist Anesthesiology 02/02/20 04/14/23 Juventino Keith MD [address] [facility] [id number] [place] [address] Referring Physician Rheumatology 05/09/20 Vince Walton MD [address] [facility] [address] [facility] [address] [place] [address] Surgeon Orthopedic Surgery 10/03/20 Carl Alicea PA [address] [facility] [address] [place] [address] Physician Airline Operations Agent Orthopedic Surgery 10/17/20 Heidy Kenny MD [facility] [address] [place] [address] Consulting Physician Neurosurgery 07/13/22 Elijah Alas MD 3 [facility] [address] [facility] [address] [place] [address] Consulting Physician Anesthesiology 04/15/23 Elijah Alas MD [address] [facility] [address] [place] [address] Consulting Physician Anesthesiology 08/12/23 08/12/23 documented as of this encounter
--- OUTSIDE RECORDS SUMMARY | 2024-09-26 15:17 | XMS_ITS | Encounter Summary ---
Author Organization [employer] Address 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
--- OUTSIDE RECORDS SUMMARY | 2024-09-26 15:17 | XMS_ITS | Encounter Summary ---
Author Organization [employer] Address 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
--- OUTSIDE RECORDS SUMMARY | 2024-09-26 15:17 | XMS_ITS | Patient Health Record ---
Author Organization [facility] [place] ([address]) Address [address] [place] [address] Care Team Providers Care Skiver Sock Linings Name Role Phone Clinton Ramirez Primary Care Provider Dr. Fredrick Frias Unavailable [phone] Hansa Wright Unavailable [phone] Allergies Allergen (clinical drug ingredient) Drug/Non Drug Allergy documented on EMR Reaction Allergy Type Onset Date Status paroxetine Paxil rash Drug Allergy Active Reason For Referral No Information Medications Medication SIG (Take, Route, Frequency, Duration) Notes Start Date End Date Status MULTIVITAMIN Multiple Vitamins 1 tab(s) orally once a day; Duration: 30 day(s) Active PROZAC 20 mg 1 cap(s) orally once a day; Duration: 30 day(s) Active Naratriptan HCl 2.5 MG 1 tab orally bid prn; Duration: 30 days Active SEROQUEL 25 mg 1 [...] once a day; Duration: 30 day(s) Active CeleBREX 200 MG 1 cap(s) orally once a day; Duration: 30 day(s) Active CYCLOBENZAPRINE 10 mg 1 tab(s) orally 3 times a day Active HYDROcodone Bitartrate ER 10 MG 1 cap(s) orally every 12 hours; Duration: 30 day(s) Active Leflunomide 10 MG 1 tab(s) orally once a day; Duration: 30 day(s) Active Folic Acid 1 MG 1 tab(s) orally once a day; Duration: 30 day(s) Active Omeprazole 20 MG 1 [...] every 12 hours; Duration: 30 day(s) Active PROzac 20 MG 1 cap(s) orally once a day; Duration: 30 day(s) Active SEROquel 25 MG 1 tab(s) orally HS Active Gabapentin 100 MG 1 cap(s) orally HS Active ALPRAZolam 1 MG 1 tab(s) orally every 8 hours Active GABAPENTIN 100 mg 1 cap(s) orally HS Active OMEPRAZOLE 20 mg 1 cap(s) orally once a day; Duration: 30 day(s) Active ALPRAZOLAM 1 mg 1 tab(s) orally every 8 hours Active Multivitamin - 1 tab(s) orally once a day; Duration: 30 day(s) Active NARATRIPTAN 2.5 mg 1 tab orally bid prn; Duration: 30 days Active Diclofenac Sodium 3 % [...] Problem Chronic migraine without aura, non-refractory (disorder) (502045923440253) Migraine without aura, not intractable, without status migrainosus (G43.009) Active confirmed Problem Migraine with aura (4522795) Migraine with aura, not intractable, without status migrainosus (G43.109) Active confirmed Problem Chronic migraine without aura, non-intractable (043862947775037) Chronic migraine without aura, not intractable, without status migrainosus (G43.709) Active confirmed Problem Drug induced headache (835809369881605) Drug-induced headache, not elsewhere classified, not intractable (G44.40) Active confirmed Problem Lesion of ulnar nerve (919176337) Lesion of ulnar nerve, right upper limb (G56.21) Active confirmed Problem Lesion of ulnar nerve (216906790) Lesion of ulnar nerve, left upper limb (G56.22) Active confirmed Problem Degeneration of lumbar intervertebral disc (84219543) Other intervertebral disc degeneration, lumbar region (M51.36) Active confirmed Problem Cervicalgia (35495652) Cervicalgia (M54.2) Active confirmed Problem Muscle pain (82769941) Myalgia, unspecified site (M79.10) Active confirmed Problem Cervicogenic headache (461441589) Cervicogenic headache (G44.86) Active confirmed Encounters Encounter Location Date Provider Diagnosis [facility] [address] [place] [address] 12/13/2023 Fredrick Mendez Plan Of Treatment Pending Test Test Name Order Date EMG (electromyography) - 3 (three) Romelia baker 10/15/2022 Insurance Providers Payer Name Payer Address Payer Phone Subscriber Number Group Number Insured Name Patient Relationship to Insured Coverage Start Date Coverage End Date A[employer] Choice POS II [address] [place], [place] [phone] [id number] Azeb Valadez Self - patient is the insured Medical (General) History Medical History History ICD Code Cervicalgia Chronic migraine RA Fibromyalgia GERD Depression/anxiety OCD PTSD Bilateral rotator cuff Surgical History Surgery Date(Month/Year) L shoulder arthroscopy
--- OUTSIDE RECORDS SUMMARY | 2024-09-26 15:17 | XMS_ITS | Encounter Summary ---
Author Organization [facility] Address [address] [place] [address] Phone Care Team Providers Care Greige Goods Examiner Name Role Phone Raulito Weathers RN Unavailable Unavailabl e Dagoberto Katz MD Unavailable [phone] Sherman Milton MD Unavailable Ilan Olsen MD Unavailable [phone] Ganesh Hess MD Unavailable [phone] Evan Lozano MD Unavailable [phone] Pebbles Méndzegreciabrandy ROMERO Unavailable Sherman Milton MD Unavailable Ilan Crowley MD Unavailable [phone] Clinton Ramirez MD Primary Care Provider [phone] Juventino Keith MD Unavailable [phone] Vince Walton MD Unavailable [phone] Carl Alicea Unavailable [phone] Heidy Kenny MD Unavailable [phone] Elijah Alas MD Unavailable [phone] Elijah Alas MD Unavailable [phone] Encounter Details Date Type Department Care Team (Late st Contact Info) Description 05/29/2022 Orders Only [facility] [address] [place] [address] Clinton Ramirez MD [address] [place] [address] Social History Tobacco Use Types Packs/Day Years [...] on file 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 Gender Identity Not on file Sexual [...] on filedocumented in this encounter Care Teams Greige Goods Examiner Relationship Specialty Start Date End Date Clinton Ramirez MD [address] [place] [address] PCP - General Infectious Diseases 05/09/20 Raulito Weathers, RN Registered Nurse 07/22/17 Dagoberto Katz MD [address] [place] [address] [place] [address] Consulting Physician Psychiatry 08/23/99 08/11/23 Sherman Milton MD [email or web address] [place] [address] Consulting Physician Otolaryngology 03/21/19 Ilan Olsen MD [address] [place], [place] [address] Consulting Physician Otolaryngology 03/21/19 Ganesh Hess MD [address] [place] [address] Consulting Physician Obstetrics and Gynecology 03/21/19 Evan Lozano MD [address] [place] [address] Consulting Physician Urology 12/06/17 Nicola Méndez DO [id number] [place] [address] Associate Professor Of Automation Obstetrics and Gynecology 02/02/19 Sherman Milton MD [address] [facility] [address] [place] [address] Consulting Physician Otolaryngology 11/14/19 04/14/23 Ilan Crowley MD [address] [place] [address] [id number] [place] [address] Anesthesiologist Anesthesiology 02/02/20 04/14/23 Juventino Keith MD [address] [place] [address] Referring Physician Rheumatology 05/09/20 Vince Walton MD [address] [facility] [address] [facility] [address] [place] [address] Surgeon Orthopedic Surgery 10/03/20 Carl Alicea PA [address] [facility] [address] [place] [address] Physician Maintenance Painter Apprentice Orthopedic Surgery 10/17/20 Heidy Kenny MD [address] [facility] [address] [facility] [address] [place] [address] Consulting Physician Neurosurgery 07/13/22 Elijah Alas MD 3 [facility] [address] [facility] [address] [place] [address] Consulting Physician Anesthesiology 04/15/23 Elijah Alas MD [address] [facility] [address] [place] [address] Consulting Physician Anesthesiology 08/12/23 08/12/23 documented as of this encounter
--- OUTSIDE RECORDS SUMMARY | 2024-09-26 15:17 | XMS_ITS | Clinical Summary ---
Author Organization 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
--- OUTSIDE RECORDS SUMMARY | 2024-09-26 15:17 | XMS_ITS | Encounter Summary ---
Author Organization [employer] Address 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
[2024-09-26 15:21] VITALS: BP 106/72; PULSE 69; RESP 16; TEMP 36.2; O2SAT 99
[2024-09-26 17:30] VITALS: PULSE 79; RESP 18; O2SAT 100
[2024-09-26 17:34] VITALS: BP 103/74; PULSE 71; RESP 17; O2SAT 100
--- OUTSIDE RECORDS SUMMARY | 2024-09-26 18:32 | XMS_ITS | Encounter Summary ---
Author Organization [facility] Address [address] [place] [address] Phone Care Team Providers Care Cnc Field Service Engineer Name Role Phone Florentino Bo MD Primary Care Provider [phone] Raulito Weathers RN Unavailable Unavailabl e Clinton Ramirez MD Primary Care Provider [phone] Ayaz Westbrook MD Unavailable [phone] Dagoberto Katz MD Unavailable [phone] Lucas Rachel MD Unavailable [phone] Sherman Milton MD Unavailable Ilan Olsen MD Unavailable +[phone] Ganesh Hess MD Unavailable +[phone] Evan Lozano MD Unavailable [phone] Nicola Méndez DO Unavailable Sherman Milton MD Unavailable Ilan Crowley MD Unavailable [phone] Clinton Ramirez MD Primary Care Provider [phone] Juventino Keith MD Unavailable [phone] Vince Walton MD Unavailable [phone] Carl Alicea Unavailable +[phone] Heidy Kenny MD Unavailable Elijah Alas MD Unavailable [phone] Elijah Alas MD Unavailable Encounter Details Date Type Department Care Team (Late st Contact Info) Description 06/11/2017 Orders Only [facility] [address] [place] [id number] Scanning, Provider Social History Tobacco Use Types Packs/Day Years Used Date Smoking Tobacco: Never Alcohol Use Standard Drinks/Week Comments No 0 (1 standard drink = 0.6 oz pur e alcohol) Comments Unknown Sex and Gender Information Value Date Recorded Sex Assigned at Not on file 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 Gender Identity Not on file Sexual Orientation [...] on filedocumented in this encounter Care Teams Cnc Field Service Engineer Relationship Specialty Start Date End Date Florentino Bo MD [address] [facility] [address] [facility] [address] [place] [address] PCP - General 07/03/11 02/28/19 Clinton Ramirez MD [address] [place] [address] PCP - General 03/01/19 05/08/20 Clinton Ramirez MD [address] [place] [address] PCP - General Infectious Diseases 05/09/20 Raulito Weathers, RN Registered Nurse 07/22/17 Ayaz Westbrook MD [address] [facility] [address] [place] [address] Consulting Physician Pain Management 03/21/19 02/01/20 Dagoberto Katz MD [address] [facility] [place] [address] Consulting Physician Psychiatry 08/23/99 08/11/23 Lucas Rachel MD [address] [facility] [place] [address] Consulting Physician Rheumatology 03/21/19 02/01/20 Sherman Milton MD [address] [facility] [address] [place], [place] [id number] Consulting Physician Otolaryngology 03/21/19 Ilan Olsen MD [address] [place], [place] [id number] Consulting Physician Otolaryngology 03/21/19 Ganesh Hess MD [address] [place] [address] Consulting Physician Obstetrics and Gynecology 03/21/19 Evan Lozano MD [address] [place] [address] Consulting Physician Urology 12/06/17 Nicola Méndez DO [id number] [place] [address] Contracts Manager Obstetrics and Gynecology 02/02/19 Sherman Milton MD [address] [place] [address] Consulting Physician Otolaryngology 11/14/19 04/14/23 Ilan Crowley MD [id number] [place] [address] Anesthesiologist Anesthesiology 02/02/20 04/14/23 Juventino Keith MD [id number] [place] [address] Referring Physician Rheumatology 05/09/20 Vince Walton MD [address] [facility] [address] [facility] [address] [place] [address] Surgeon Orthopedic Surgery 10/03/20 Carl Alicea PA [address] [facility] [address] [place] [address] Physician Stores Assistant Orthopedic Surgery 10/17/20 Heidy Kenny MD [facility] [address] [place] [address] Consulting Physician Neurosurgery 07/13/22 Elijah Alas MD 3 [facility] LU[address] TORRE [facility] [address] [place] [address] Consulting Physician Anesthesiology 04/15/23 Elijah Alas MD [address] [facility] [address] [place] [address] Consulting Physician Anesthesiology 08/12/23 08/12/23 documented as of this encounter
--- OUTSIDE RECORDS SUMMARY | 2024-09-26 18:32 | XMS_ITS | Encounter Summary ---
Author Organization [facility] Address [address] [place] [address] Phone Care Team Providers Care Identification And Records Commander Name Role Phone Raulito Weathers RN Unavailable Unavailabl e Clinton Ramirez MD Primary Care Provider [phone] Dagoberto Katz MD Unavailable [phone] Sherman Milton MD Unavailable [phone] Ilan Olsen MD Unavailable [phone] Ganesh Hess MD Unavailable [phone] Evan Lozano MD Unavailable [phone] Nicola Méndez DO Unavailable Sherman Milton MD Unavailable +[phone] Ilan Crowley MD Unavailable [phone] Clinton Ramirez MD Primary Care Provider [phone] Juventino Keith MD Unavailable [phone] Vince Walton MD Unavailable [phone] Carl Alicea Unavailable +[phone] Heidy Kenny MD Unavailable [phone] Elijah Alas MD Unavailable [phone] Elijah Alas MD Unavailable [phone] Encounter Details Date Type Department Care Team (Late st Contact Info) Description 02/21/2020 Orders Only [facility] [address] [place] [address] Scanning, Provider Social History Tobacco Use Types Packs/Day Years Used Date Smoking Tobacco: Never Smokeless Tobacco: Never Alcohol Use Standard Drinks/Week Comments Yes 0 (1 standard drink = 0.6 oz pur e alcohol) PHQ-2 Answer Date Recorded PHQ-2 Score 5 12/22/2019 Comments Unknown Sex and Gender Information Value Date Recorded Sex Assigned at Not on file 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 Gender Identity Not on file Sexual Orientation [...] on filedocumented in this encounter Care Teams Identification And Records Commander Relationship Specialty Start Date End Date Clinton Ramirez MD [address] [address] PCP - General 03/01/19 05/08/20 Clinton Ramirez MD [address] [place] [address] PCP - General Infectious Diseases 05/09/20 Raulito Weathers, JESSICA Registered Nurse 07/22/17 Dagoberto Katz MD [address] [place] [address] [place] [address] Consulting Physician Psychiatry 08/23/99 08/11/23 Sherman Milton MD [address] [place] [address] Consulting Physician Otolaryngology 03/21/19 Ilan Olsen MD [address] [place] [address] Consulting Physician Otolaryngology 03/21/19 Ganesh Hess MD [address] [place] [address] Consulting Physician Obstetrics and Gynecology 03/21/19 Evan Lozano MD [address] [place] [address] Consulting Physician Urology 12/06/17 Nicola Méndez DO [id number] [place] [address] Military Science Instructor Obstetrics and Gynecology 02/02/19 Sherman Milton MD [address] [place] [address] Consulting Physician Otolaryngology 11/14/19 04/14/23 Ilan Crowley MD [id number] [place] [address] Anesthesiologist Anesthesiology 02/02/20 04/14/23 Juventino Keith MD [address] [facility] [id number] [place] [address] Referring Physician Rheumatology 05/09/20 Vince Walton MD [address] [facility] [address] [facility] [address] [place] [address] Surgeon Orthopedic Surgery 10/03/20 Carl Alicea PA [address] [facility] [address] [place] [address] Physician Audio Narrator Orthopedic Surgery 10/17/20 Heidy Kenny MD 3 [facility] [address] [place] [address] Consulting Physician Neurosurgery 07/13/22 Elijah Alas MD 3 [facility] LU[address] DILLAN [facility] [address] [place] [address] Consulting Physician Anesthesiology 04/15/23 Elijah Alas MD [address] [facility] [address] [place] [address] Consulting Physician Anesthesiology 08/12/23 08/12/23 documented as of this encounter
--- OUTSIDE RECORDS SUMMARY | 2024-09-26 18:32 | XMS_ITS | Encounter Summary ---
Author Organization [employer] Address 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
--- OUTSIDE RECORDS SUMMARY | 2024-09-26 18:32 | XMS_ITS | Encounter Summary ---
Author Organization [facility] Address [address] [place] [address] Phone Care Team Providers Care Lip Of Shank Cutter Name Role Phone Raulito Weathers RN Unavailable Unavailabl e Clinton Ramirez MD Primary Care Provider [phone] Dagoberto Katz MD Unavailable [phone] Sherman Milton MD Unavailable [phone] Ilan Olsen MD Unavailable [phone] Ganesh Hess MD Unavailable [phone] Evan Lozano MD Unavailable [phone] Nicola Méndez DO Unavailable Sherman Milton MD Unavailable +[phone] Ilan Crowley MD Unavailable [phone] Clinton Ramirez MD Primary Care Provider [phone] Juventino Ketih MD Unavailable [phone] Vince Walton MD Unavailable [phone] Carl Alicea Unavailable [phone] Heidy Kenny MD Unavailable [phone] Elijah Alas MD Unavailable [phone] Elijah Alas MD Unavailable [phone] Encounter Details Date Type Department Care Team (Late st Contact Info) Description 02/12/2020 Orders Only [facility] [address] [place] [address] Scanning, Provider Social History Tobacco Use Types Packs/Day Years Used Date Smoking Tobacco: Never Smokeless Tobacco: Never Alcohol Use Standard Drinks/Week Comments Yes 0 (1 standard drink = 0.6 oz pur e alcohol) PHQ-2 Answer Date Recorded PHQ-2 Score 5 12/22/2019 Comments Unknown Sex and Gender Information Value Date Recorded Sex Assigned at Not on file 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 Gender Identity Not on file Sexual Orientation [...] on filedocumented in this encounter Care Teams Lip Of Shank Cutter Relationship Specialty Start Date End Date Clinton Ramirez MD [address] [place] [address] PCP - General 03/01/19 05/08/20 Clinton Ramirez MD [address] [place] [address] PCP - General Infectious Diseases 05/09/20 Raulito Weathers, JESSICA Registered Nurse 07/22/17 Dagoberto aKtz MD [address] [place] [address] [place] [address] Consulting Physician Psychiatry 08/23/99 08/11/23 Sherman Milton MD [address] [place] [address] Consulting Physician Otolaryngology 03/21/19 Ilan Olsen MD [address] [place] [address] Consulting Physician Otolaryngology 03/21/19 Ganesh Hess MD [address] [place] [address] Consulting Physician Obstetrics and Gynecology 03/21/19 Evan Lozano MD [address] [place] [address] Consulting Physician Urology 12/06/17 Nicola Méndez DO [id number] [place] [address] Bench Worker Binding Obstetrics and Gynecology 02/02/19 Sherman Milton MD [address] [place] [address] Consulting Physician Otolaryngology 11/14/19 04/14/23 Ilan Crowley MD [id number] [place] [address] Anesthesiologist Anesthesiology 02/02/20 04/14/23 Juventino Keith MD [address] [place] [address] [id number] [place] [address] Referring Physician Rheumatology 05/09/20 Vince Walton MD 4 [facility] [address] [facility] [address] [place] [address] Surgeon Orthopedic Surgery 10/03/20 Carl Alicea PA 4 [facility] [address] [place] [address] Physician Senior Medical Billing Specialist Orthopedic Surgery 10/17/20 Heidy Kenny MD 3 [facility] [address] [facility] [address] [place] [address] Consulting Physician Neurosurgery 07/13/22 Elijah Alas MD 3 [facility] [address] [facility] [address] [place] [address] Consulting Physician Anesthesiology 04/15/23 Elijah Alas MD 2 [facility] [address] [place] [address] Consulting Physician Anesthesiology 08/12/23 08/12/23 documented as of this encounter
--- OUTSIDE RECORDS SUMMARY | 2024-09-26 18:32 | XMS_ITS | Clinical Summary ---
Author Organization [facility] Address [address] [place] [address] Care Team Providers Care Manager Government Name Role Phone Raulito Weathers RN Unavailable Unavailabl Sherman Lawrence MD Unavailable [phone] Ilan Olsen MD Unavailable [phone] Ganesh Hess MD Unavailable [phone] Evan Lozano MD Unavailable [phone] Nicola Méndez DO Unavailable Clinton Ramirez MD Primary Care Provider [phone] Juventino Keith MD Unavailable [phone] Vince Walton MD Unavailable [phone] Carl Alicea Unavailable [phone] Heidy Kenny MD Unavailable [phone] Elijah Alas MD Unavailable [phone] Allergies Active Allergy Reactions Criticality Noted Date [...] 04/09/2023 Assessment & Plan (04/15/2023 2:29 PM ADVERTISING CAMPAIGN MANAGER): She was in the [facility] ER recently with chest pain. She [...] week. Recommend that she follow-up with her sheriff for this problem. If she wants a [...] rotator cuff repair on 10/17/2020, Dr. Walton, [facility]. Assessment & Plan (01/05/2023 3:32 PM ADVERTISING CAMPAIGN MANAGER): She had surgery on the left shoulder about two years ago consisting of arthroscopy, distal claviculectomy and rotator cuff repair. The biceps tendon was repaired or manipulated. Recent imaging at [facility] as part of her evaluation for [...] infraspinatus tear, ordered by Orthopedics, performed at [facility]. Sleep disorder 08/23/2019 Overview (08/22/2020): Details lacking, sees Dr. Durham. Patient says she might have narcolepsy. She is on Sonata to help her fall asleep. Assessment & Plan (04/12/2021 4:32 PM ADVERTISING CAMPAIGN MANAGER): She may have narcolepsy or a [...] remedy. Assessment & Plan (04/03/2021 5:10 PM ADVERTISING CAMPAIGN MANAGER): Movantik was not working and was expensive. She would like Linzess instead which helped her in the past. We sent in a prescription. 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 She self regulates her methotrexate dosing and did take a lower dose last week with improvement of her facial rash, see discussion elsewhere. She will follow-up with her sheriff, Dr. Keith, for this condition. Assessment & [...] needed. Assessment & Plan (04/12/2021 4:32 PM ADVERTISING CAMPAIGN MANAGER): She sees Dr. Keith. She is [...] same. Assessment & Plan (04/01/2019 3:36 PM ADVERTISING CAMPAIGN MANAGER): She was diagnosed with seronegative rheumatoid [...] Had a urethral sling. Unremarkable kidney USN, [facility], 06/25/2021, Dr. Lozano. Assessment & Plan (04/15/2023 2:28 PM ADVERTISING CAMPAIGN MANAGER): She is not tolerating oxybutynin. It is making her anxiety worse. She previously tolerated Myrbetriq, so we sent that in instead. Assessment & Plan (09/08/2020 4:00 PM CDT): She requested a referral back to Dr. Lozano for a follow up. Assessment & Plan (04/01/2019 3:34 PM ADVERTISING CAMPAIGN MANAGER): She has an overactive bladder as well as stress incontinence. She had a urethral sling a little over one year ago. She sees Dr. Evna Lozano as needed. He has her on oxybutynin. She has urinary frequency, but no dysuria or hematuria. Continue same. Raynaud's disease without gangrene 08/22/2017 Overview (03/21/2019): On nifedipine. Assessment & Plan (09/08/2020 3:50 PM CDT): Her sheriff decreased the dose of nifedipine to 30 mg daily. Continue same. Chronic pain 05/06/2016 Overview (03/20/2019): From [facility]. Assessment & Plan (04/15/2023 2:28 PM ADVERTISING CAMPAIGN MANAGER): She takes hydrocodone for more severe [...] symptoms that prompted a visit to the [facility] ER. . She had chest pain [...] same. Assessment & Plan (04/03/2021 5:10 PM ADVERTISING CAMPAIGN MANAGER): She sees Dr. Crowley. Her most [...] well. Assessment & Plan (03/21/2019 11:26 AM ADVERTISING CAMPAIGN MANAGER): In addition to her back, she [...] PM CDT): She was seen in the [facility] ER recently for abdominal pain and [...] sent. Assessment & Plan (03/21/2019 11:27 AM ADVERTISING CAMPAIGN MANAGER): She is diagnosed with fibromyalgia. She [...] finances. Assessment & Plan (04/15/2023 2:18 PM ADVERTISING CAMPAIGN MANAGER): She has a lot of anxiety [...] alternatives. Assessment & Plan (04/03/2021 5:08 PM ADVERTISING CAMPAIGN MANAGER): She has been seeing Dr. Katz [...] today. Assessment & Plan (04/01/2019 3:36 PM ADVERTISING CAMPAIGN MANAGER): She had a very traumatic upbringing. [...] does have a psychiatrist, Dr. Katz, in [place]. She is on several medications to help [...] by neurosurgery, Dr. Heidy Kenny in about [phone]. No surgery recommended. Assessment & Plan (08/25/2023 [...] bladder. Assessment & Plan (04/01/2019 3:32 PM ADVERTISING CAMPAIGN MANAGER): She sees Dr. Westbrook for pain [...] same. Assessment & Plan (04/03/2021 5:12 PM ADVERTISING CAMPAIGN MANAGER): She has DuoNebs and a canister [...] same. Assessment & Plan (02/12/2020 3:38 PM ADVERTISING CAMPAIGN MANAGER): Patient is reporting increased congestion and [...] asthma. Assessment & Plan (03/21/2019 11:28 AM ADVERTISING CAMPAIGN MANAGER): She has had mild asthma with [...] note. Assessment & Plan (04/12/2021 4:37 PM ADVERTISING CAMPAIGN MANAGER): She called not too long ago [...] before her surgery, either ordered by her sheriff or ordered by Dr. Walton so we can review them. Likewise for any EKG that is ordered. COVID-19 03/24/2020 05/05/2022 Overview (05/05/2022): Postive test. Followed by a month or more of post Covid congestion, saw BENITO Reed. Assessment & Plan (03/21/2021 12:17 PM ADVERTISING CAMPAIGN MANAGER): Patient tested positive for covid on [...] Reed. Assessment & Plan (02/12/2020 3:36 PM ADVERTISING CAMPAIGN MANAGER): Patient has congestion, sinus pressure and ear fullness x 4 days most consistent with viral infection. COVID-19 testing negative. We discussed symptom management with tylenol for pain or fevers, rest fluids, Mucinex and saline rinses. She is to call if symptoms worsen or persist. Cervicovaginal cytology spec imen unsatisfactory 02/25/2019 03/20/2019 Overview (03/20/2019): [facility], details lacking. Major depressive disorder, r ecurrent, moderate 05/06/2016 08/22/2020 Overview (03/20/2019): From [facility]. Generalized anxiety disorder 05/06/2016 08/22/2020 Overview (03/20/2019): From [facility]. Left lower quadrant pain 09/10/2013 Overview (03/20/2019): Details lacking. Encounters Date Type Department Care Team Description 08/31/2024 3:11 PM CDT - 08/31/2024 11:59 PM CDT Hospital Encounter [facility] [address] [facility] [place] [address] Tran Mittal, CAESAR Spondylosis of lumbar region without myelopathy or radiculopathy (Primary Dx); Spondylosis of cervical region without myelopathy or radiculopathy; [facility] (current) use of opiate analgesic; Neuropathy of left sciatic nerve; Chronic constipation Discharge Disposition: Discharge to home or self care 08/14/[address] [facility] [address] [place] [address] Clinton Ramirez MD 08/10/2024 3:45 PM CDT - 08/10/2024 11:59 PM CDT Hospital Encounter [facility] [address] [facility] [place] [address] Tran Mittal NP Myalgia, other site Discharge Disposition: Discharge to home or self care 08/01/2024 Orders Only [facility] 4 [facility] [address] [place] [id number] Carl Alicea PA Patellofemoral pain syndrome of both knees (Primary Dx) 07/31/2024 3:00 PM CDT Office Visit [facility] [address] [place] [phone] Carl Alicea PA Patellofemoral pain syndrome of both knees (Primary Dx); Other tear of lateral meniscus of left knee as current injury, initial encounter 07/31/2024 2:55 [address] Procedure [facility] Imaging at [address] [phone] Bilateral anterior knee pain 07/31/2024 2:50 PM CDT Ancillary Procedure [facility] Imaging at [address] [phone] Bilateral anterior knee pain 07/20/2024 7:28 AM CDT - 07/20/2024 11:59 PM CDT Hospital Encounter [facility] [address] [place] [address] Elijah Alas MD Myalgia, other site (Primary Dx) Discharge Disposition: Discharge to home or self care 07/05/2024 2:45 PM CDT Office Visit [facility] [address] [place] [phone] Carl Alicea PA Impingement syndrome of right [...] - 02/21/1999 Deviated septum, Dr. [place] Milton, [facility]. TURBINOPLASTY 02/22/1998 - 02/21/1999 Dr. Milton, at time of septoplasty. BLADDER SUSPENSION 11/22/2017 - 12/22/2017 Dr. Lozano, [facility] outpatient surgery. LARYNX SURGERY 02/22/2009 - 02/21/2010 Dr. Milton, [facility] and outpatient surgery, multiple proceedures, most recently 2009 for vocal cord nodules. SHOULDER SURGERY 02/19/2018 Left Distal clavicle resection, acromioplasty, rotator cuff repair, labral repair, tendon repair. [facility] PAP SMEAR WITH HPV 02/02/2019 Normal/negative, See scanned reports. DILATION AND CURETTAGE OF UTERUS 12/09/2011 Benign proliferative endometrium, see scanned report. MAMMOGRAPHY 02/18/2020 Bilateral Negative, [facility]. SHOULDER SURGERY 10/17/2020 Left Left shoulder arthroscopy, distal claviculectomy including distal articular surface, rotator cuff repair, Dr. Walton, [facility]. SHOULDER ARTHROCENTESIS 10/14/2021 Bilateral Subacromial bursa injections, orthopedics. MAMMOGRAPHY 06/24/2022 Bilateral Negative, [facility]. SHOULDER ARTHROCENTESIS 03/01/2023 Bilateral Subacromial bursa [...] rotator cuff repair on 10/17/2020, Dr. Walton, [facility]. Family History Medical History Relation Name Comments [...] on file 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 ADVERTISING CAMPAIGN MANAGER Gender Identity Not on file Sexual [...] as needed Medical Devices Implanted Type Area Sole Dyer Device Identifier Shelf Expiration Date Model / Serial / Lot [employer] 2504-1 Regenerate Tendon Gunlock Suture - [id number] Implanted:Qty: 1 on 10/17/2020 by Vince Walton MD at [facility] Left: Shoulder [employer] 02/13/2023 2504-1 / / [id number] [employer]/Or tho 4565 Implant Medium Arthroscopic Bioinductive W/ Delivery Device - [id number] Implanted:Qty: 1 on 10/17/2020 by Vince Walton MD at [facility] Left: Shoulder [employer]/Or tho 04/12/2021 4565 / / [id number] [employer]/Or tho 4403 Gunlock Bone With Arthroscopic Delivery System Advanced - [id number] Implanted:Qty: 1 on 10/17/2020 by Vince Walton MD at [facility] Left: Shoulder [employer]/Or tho 12/28/2022 [id number] / / [id number] Procedures Procedure Name Priority Date/Time Associated Diagnosis [...] 2:56 PM CDT Bilateral anterior knee pain ND ARTHROCENTESIS ASPIR&/INJ MAJOR JT/BURSA W/O US Routine [...] IMG XR PROCEDURES Final Res ult * ND ARTHROCENTESIS ASPIR&/INJ MAJOR JT/BURSA W/O US (07/05/2024 [...] Normal Impressions Clinton Ramirez MD - 06/24/2022 [facility]. Narrative Clinton Ramirez MD - 06/24/2022 See scanned report. us Clinton Ramirez MD HEALTH MAINTENANCE Final Resu lt * PAP SMEAR WITH HPV (02/02/2019) HM Pap smear Normal Comment:See scanned result. us Naomasa Hase DO HEALTH MAINTENANCE Final Result from Last 3 Months or Most Recently Relevant to Health Maintenance Insurance T MEDICARE GOLD [employer] CHOICE PPO [employer] P[employer] Care Teams Manager Government Relationship Specialty Start Date End Date Clinton Ramirez MD [address] [place] [address] PCP - General Infectious Diseases 05/09/20 Raulito Weathers, RN Registered Nurse 07/22/17 Sherman Milton MD [address] [facility] [address] [place] [address] Consulting Physician Otolaryngology 03/21/19 Ilan Olsen MD [address] [facility] [address] [place] [address] Consulting Physician Otolaryngology 03/21/19 Ganesh Hess MD [address] [place] [address] Consulting Physician Obstetrics and Gynecology 03/21/19 Evan Lozano MD [address] [place] [address] Consulting Physician Urology 12/06/17 Nicola Méndez DO [id number] [place] [address] Echocardiography Tech Obstetrics and Gynecology 02/02/19 Juventino Keith MD [address] [place] [address] Referring Physician Rheumatology 05/09/20 Vince Walton MD [address] [facility] [address] [facility] [address] [place] [address] Surgeon Orthopedic Surgery 10/03/20 Carl Alicea PA [address] [facility] [address] [place] [address] Physician Carpet Installer Orthopedic Surgery 10/17/20 Heidy Kenny MD 3 [facility] [address] [address] Consulting Physician Neurosurgery 07/13/22 Elijah Alas MD 3 [facility] [address] [address] Consulting Physician Anesthesiology 04/15/23
--- OUTSIDE RECORDS SUMMARY | 2024-09-26 18:32 | XMS_ITS | Encounter Summary ---
Author Organization [facility] Healthcare Address [address] [place] [address] Care Team Providers Care Permaculture Contractor Name Role Phone Florentino Bo MD Primary Care Provider [phone] Raulito Weathers RN Unavailable Unavailabl e Clinton Ramirez MD Primary Care Provider [phone] Ayaz Westbrook MD Unavailable [phone] Dagoberto Katz MD Unavailable [phone] Lucas Rachel MD Unavailable [phone] Sherman Milton MD Unavailable [phone] Ilan Olsen MD Unavailable [phone] Ganesh Hess MD Unavailable [phone] Evan Lozano MD Unavailable [phone] Nicola Méndez DO Unavailable Sherman Milton MD Unavailable [phone] Ilan Crowley MD Unavailable [phone] Clinton Ramirez MD Primary Care Provider [phone] Juventino Keith MD Unavailable [phone] Vince Walton MD Unavailable [phone] Carl Alicea Unavailable [phone] Heidy Kenny MD Unavailable [phone] Elijah Alas MD Unavailable [phone] Elijah Alas MD Unavailable [phone] Encounter Details Date Type Department Care Team (Late st Contact Info) Description 01/26/2005 Orders Only [facility] [address] [place] [address] Scanning, Provider Social History Tobacco Use Types Packs/Day Years Used Date Smoking Tobacco: Never Assessed Comments Unknown Sex and Gender Information Value Date Recorded Sex Assigned at Not on file 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 Gender Identity Not on file Sexual Orientation [...] on filedocumented in this encounter Care Teams Permaculture Contractor Relationship Specialty Start Date End Date Florentino Bo MD [address] [facility] [address] [facility] [address] [place] [address] PCP - General 07/03/11 02/28/19 Clinton Ramirez MD [address] [place] [address] PCP - General 03/01/19 05/08/20 Clinton Ramirez MD [address] [place] [address] PCP - General Infectious Diseases 05/09/20 Raulito Weathers, JESSICA Registered Nurse 07/22/17 Ayaz Westbrook MD NPI: [id number] [place] [address] [address] [place] [address] Consulting Physician Pain Management 03/21/19 02/01/20 Dagoberto Katz MD [address] [place] [address] [place] [address] Consulting Physician Psychiatry 08/23/99 08/11/23 Lucas Rachel MD [address] [place] [address] [place] [address] Consulting Physician Rheumatology 03/21/19 02/01/20 Sherman Milton MD [address] [place] [address] Consulting Physician Otolaryngology 03/21/19 Ilan Olsen MD [address] [place] [address] Consulting Physician Otolaryngology 03/21/19 Ganesh Hess MD [address] [place] [address] Consulting Physician Obstetrics and Gynecology 03/21/19 Evan Lozano MD [address] [place] [address] Consulting Physician Urology 12/06/17 Nicola Méndez DO [id number] [place] [address] Carton And Can Supply Supervisor Obstetrics and Gynecology 02/02/19 Sherman Milton MD [address] [facility] [address] [place] [address] Consulting Physician Otolaryngology 11/14/19 04/14/23 Ilan Crowley MD [id number] [place] [address] Anesthesiologist Anesthesiology 02/02/20 04/14/23 Juventino Keith MD [id number] [place] [address] Referring Physician Rheumatology 05/09/20 Vince Walton MD [address] [facility] [address] [facility] [address] [place] [address] Surgeon Orthopedic Surgery 10/03/20 Carl Alicea PA [address] [facility] [address] [place] [address] Physician Industrial Safety And Health Technician Orthopedic Surgery 10/17/20 Heidy Kenny MD [address] [facility] [address] [place] [address] Consulting Physician Neurosurgery 07/13/22 Elijah Alas MD [address] [facility] [address] [facility] [address] [place] [address] Consulting Physician Anesthesiology 04/15/23 Elijah Alas MD [address] [facility] [address] [place] [address] Consulting Physician Anesthesiology 08/12/23 08/12/23 documented as of this encounter
--- OUTSIDE RECORDS SUMMARY | 2024-09-26 18:32 | XMS_ITS | Encounter Summary ---
Author Organization [facility] Address [address] [place] [address] Phone Care Team Providers Care Technical Business Systems Analyst Name Role Phone Raulito Weathers RN Unavailable Unavailabl e Dagoberto Katz MD Unavailable [phone] Sherman Milton MD Unavailable Ilan Olsen MD Unavailable [phone] Ganesh Hess MD Unavailable [phone] Evan Lozano MD Unavailable [phone] Pebbles Méndezgreciabrandy ROMERO Unavailable Sherman Milton MD Unavailable Ialn Crowley MD Unavailable [phone] Clinton Ramirez MD Primary Care Provider [phone] Juventino Keith MD Unavailable [phone] Vince Walton MD Unavailable [phone] Carl Alicea Unavailable [phone] Heidy Kenny MD Unavailable [phone] Elijah Alas MD Unavailable [phone] Elijah Alas MD Unavailable [phone] Encounter Details Date Type Department Care Team (Late st Contact Info) Description 05/29/2022 Orders Only [facility] [address] [place] [address] Clinton Ramirez MD [address] [address] Social History Tobacco Use Types Packs/Day Years [...] on file 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 Gender Identity Not on file Sexual Orientation [...] on filedocumented in this encounter Care Teams Technical Business Systems Analyst Relationship Specialty Start Date End Date Clinton Ramirez MD [address] [place] [address] PCP - General Infectious Diseases 05/09/20 Raulito Weathers, RN Registered Nurse 07/22/17 Dagoberto Katz MD [address] [place] [address] [place] [address] Consulting Physician Psychiatry 08/23/99 08/11/23 Sherman Milton MD [address] [place] [address] Consulting Physician Otolaryngology 03/21/19 Ilan Olsen MD [address] [place], [place] [id number] Consulting Physician Otolaryngology 03/21/19 Ganesh Hess MD [address] [place] [address] Consulting Physician Obstetrics and Gynecology 03/21/19 Evan Lozano MD [address] [place] [address] Consulting Physician Urology 12/06/17 Nicola Méndez DO [id number] [place] [address] Pit Tanner Obstetrics and Gynecology 02/02/19 Sherman Milton MD [address] [facility] [address] [place] [address] Consulting Physician Otolaryngology 11/14/19 04/14/23 Ilan Crowley MD [address] [place] [address] [id number] [place] [address] Anesthesiologist Anesthesiology 02/02/20 04/14/23 Juventino Keith MD [address] [place] [address] Referring Physician Rheumatology 05/09/20 Vince Walton MD [address] [facility] [address] Se[address] [facility] [address] [place] [address] Surgeon Orthopedic Surgery 10/03/20 Carl Alicea PA [address] [facility] [address] [place] [address] Physician Hedis Review Nurse Orthopedic Surgery 10/17/20 Heidy Kenny MD 3 [facility] [address] [facility] [address] [place] [address] Consulting Physician Neurosurgery 07/13/22 Elijah Alas MD 3 [facility] [address] [facility] [address] [place] [address] Consulting Physician Anesthesiology 04/15/23 Elijah Alas MD [address] [facility] [address] [place] [address] Consulting Physician Anesthesiology 08/12/23 08/12/23 documented as of this encounter
--- OUTSIDE RECORDS SUMMARY | 2024-09-26 18:32 | XMS_ITS | Clinical Summary ---
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
--- OUTSIDE RECORDS SUMMARY | 2024-09-26 18:32 | XMS_ITS | Continuity of Care Document ---
Author Organization [facility] Address [address] [place] [address] Phone Care Team Providers Care Skin Diver Name Role Phone Moon OD, Dagoberto Unavailable Unavailable Advance Directives Directive Yes / No Effective Date File Name No Information Encounters Encounter Description Practice Location Reason(s) For Visit Diagnoses Date Provider Providers Copied on Encounter [facility], [address], [place], [place], [id number], [place] tel:[phone] SEC [facility] [place] No Information Mar-2 1-200 2 Moon OD Dagoberto. [address] [facility] [place] , [address], [place], [address], [place]. tel:[phone] Family History Family Member Type Diagnosis Age At Onset No Information Payers Payer name Insurance type Covered green party ID Authoriza tion(s) No Information Social History Type Description Quantity Date Captured Comments Sex Female Smoking Status No Information Chief Complaint And Reason For Visit No Information Reason For Referral Reason For Referral No Information History Of Present Illness Encounter Date Complaint History Of Prese nt Illness No Information Functional Status Date Functional Assessmen t No Information Instructions Date Instruction Additional Infor mation No Information Assessments Type Assessment Date No Information Patient Care Teams Name Effective Dates (start - stop) Status Members No Information
--- OUTSIDE RECORDS SUMMARY | 2024-09-26 18:32 | XMS_ITS | Referral Summary ---
Author Organization [facility] Address [address] [place] [address] Care Team Providers Care Electronics Scale Tester Name Role Phone Raulito Weathers RN Unavailable Unavailabl Sherman Lawrence MD Unavailable [phone] Ilan Olsen MD Unavailable [phone] Ganesh Hess MD Unavailable [phone] Evan Lozano MD Unavailable [phone] Niocla Méndez DO Unavailable Clinton Ramirez MD Primary Care Provider [phone] Juventino Keith MD Unavailable [phone] Vince Walton MD Unavailable [phone] Carl Alicea Unavailable [phone] Heidy Kenny MD Unavailable [phone] Elijah Alas MD Unavailable [phone] Encounters Date Type Department Care Team Description 08/31/2024 3:11 PM CDT - 08/31/2024 11:59 PM CDT Hospital Encounter [facility] [address] [facility] [address] [place] [address] Tran Mittal NP Spondylosis of lumbar region without myelopathy or radiculopathy (Primary Dx); Spondylosis of cervical region without myelopathy or radiculopathy; buttermaker helper (current) use of opiate analgesic; Neuropathy of left sciatic nerve; Chronic constipation Discharge Disposition: Discharge to home or self care 08/14/2024 Telephone [facility] [address] [facility] [address] [place] [address] Clinton Ramirez MD 08/10/2024 3:45 PM CDT - 08/10/2024 11:59 PM CDT Hospital Encounter [facility] [address] [place] [address] Tran Mittal NP Myalgia, other site Discharge Disposition: Discharge to home or self care 08/01/2024 Orders Only [facility] Orthopedics and Sports Medicine [address] [facility] [address] [place] [address] Carl Alicea PA Patellofemoral pain syndrome of both knees (Primary Dx) 07/31/2024 2:55 PM CDT Ancillary Procedure [facility] Imaging at [address] [address] Bilateral anterior knee pain 07/31/2024 2:50 PM CDT Ancillary Procedure [facility] Imaging at [address] [phone] Bilateral anterior knee pain 07/31/2024 3:00 PM CDT Office Visit [facility] Orthopedic and Sports Medicine [address] [place] [phone] Carl Alicea PA Patellofemoral pain syndrome of both knees (Primary Dx); Other tear of lateral meniscus of left knee as current injury, initial encounter 07/20/2024 7:28 AM CDT - 07/20/2024 11:59 PM CDT Hospital Encounter [facility] [place] [address] Elijah Alas MD Myalgia, other site (Primary Dx) Discharge Disposition: Discharge to home or self care 07/05/2024 2:45 PM CDT Office Visit [facility] Orthopedic and Sports Medicine [address] [place] [phone] Carl Alicea PA Impingement syndrome of [...] tablet Take 1 tablet by mouth daily [facility] Branch. 12/15/19 23 Active methotrexate 2.5 mg tablet [...] 04/09/2023 Assessment & Plan (04/15/2023 2:29 PM SUPPLIER DIVERSITY DIRECTOR): She was in the [facility] ER recently with chest pain. She was [...] week. Recommend that she follow-up with her photoengraving photographer for this problem. If she wants a [...] [place]. Assessment & Plan (01/05/2023 3:32 PM SUPPLIER DIVERSITY DIRECTOR): She had surgery on the left shoulder about two years ago consisting of arthroscopy, distal claviculectomy and rotator cuff repair. The biceps tendon was repaired or manipulated. Recent imaging at [facility] as part of her evaluation for abdominal [...] infraspinatus tear, ordered by Orthopedics, performed at [facility]. Sleep disorder 08/23/2019 Overview (08/22/2020): Details lacking, sees Dr. Durham. Patient says she might have narcolepsy. She is on Sonata to help her fall asleep. Assessment & Plan (04/12/2021 4:32 PM SUPPLIER DIVERSITY DIRECTOR): She may have narcolepsy or a related [...] remedy. Assessment & Plan (04/03/2021 5:10 PM SUPPLIER DIVERSITY DIRECTOR): Movantik was not working and was expensive. She would like Linzess instead which helped her in the past. We sent in a prescription. alf (current) use of opiate analgesic 05/23 Rheumatoid arthritis of [facility] with negative rheumatoid factor 12/08/2017 Assessment & Plan (08/25/2023 3:41 PM CDT): Chronic, fair control. She self regulates her methotrexate dosing and did take a lower dose last week with improvement of her facial rash, see discussion elsewhere. She will follow-up with her photoengraving photographer, Dr. Keith, for this condition. Assessment & [...] needed. Assessment & Plan (04/12/2021 4:32 PM SUPPLIER DIVERSITY DIRECTOR): She sees Dr. Keith. She is on [...] same. Assessment & Plan (04/01/2019 3:36 PM SUPPLIER DIVERSITY DIRECTOR): She was diagnosed with seronegative rheumatoid arthritis, [...] Had a urethral sling. Unremarkable kidney USN, [facility], 06/25/2021, Dr. Lozano. Assessment & Plan (04/15/2023 2:28 PM SUPPLIER DIVERSITY DIRECTOR): She is not tolerating oxybutynin. It is making her anxiety worse. She previously tolerated Myrbetriq, so we sent that in instead. Assessment & Plan (09/08/2020 4:00 PM CDT): She requested a referral back to Dr. Lozano for a follow up. Assessment & Plan (04/01/2019 3:34 PM SUPPLIER DIVERSITY DIRECTOR): She has an overactive bladder as well as stress incontinence. She had a urethral sling a little over one year ago. She sees Dr. Evan Lozano as needed. He has her on oxybutynin. She has urinary frequency, but no dysuria or hematuria. Continue same. Raynaud's disease without gangrene 08/22/2017 Overview (03/21/2019): On nifedipine. Assessment & Plan (09/08/2020 3:50 PM CDT): Her photoengraving photographer decreased the dose of nifedipine to 30 mg daily. Continue same. Chronic pain 05/06/2016 Overview (03/20/2019): From [facility]. Assessment & Plan (04/15/2023 2:28 PM SUPPLIER DIVERSITY DIRECTOR): She takes hydrocodone for more severe pain [...] symptoms that prompted a visit to the [facility] ER. . She had chest pain and [...] same. Assessment & Plan (04/03/2021 5:10 PM SUPPLIER DIVERSITY DIRECTOR): She sees Dr. Crowley. Her most recent [...] well. Assessment & Plan (03/21/2019 11:26 AM SUPPLIER DIVERSITY DIRECTOR): In addition to her back, she has [...] PM CDT): She was seen in the [facility] ER recently for abdominal pain and has [...] sent. Assessment & Plan (03/21/2019 11:27 AM SUPPLIER DIVERSITY DIRECTOR): She is diagnosed with fibromyalgia. She sees [...] finances. Assessment & Plan (04/15/2023 2:18 PM SUPPLIER DIVERSITY DIRECTOR): She has a lot of anxiety as [...] alternatives. Assessment & Plan (04/03/2021 5:08 PM SUPPLIER DIVERSITY DIRECTOR): She has been seeing Dr. Katz for [...] today. Assessment & Plan (04/01/2019 3:36 PM SUPPLIER DIVERSITY DIRECTOR): She had a very traumatic upbringing. Her [...] does have a psychiatrist, Dr. Katz, in [place]. She is on several medications to help [...] by neurosurgery, Dr. Heidy Kenny in about [id number]. No surgery recommended. Assessment & Plan (08/25/2023 [...] bladder. Assessment & Plan (04/01/2019 3:32 PM SUPPLIER DIVERSITY DIRECTOR): She sees Dr. Westbrook for pain management. [...] same. Assessment & Plan (04/03/2021 5:12 PM SUPPLIER DIVERSITY DIRECTOR): She has DuoNebs and a canister albuterol [...] same. Assessment & Plan (02/12/2020 3:38 PM SUPPLIER DIVERSITY DIRECTOR): Patient is reporting increased congestion and chest [...] asthma. Assessment & Plan (03/21/2019 11:28 AM SUPPLIER DIVERSITY DIRECTOR): She has had mild asthma with seasonal [...] note. Assessment & Plan (04/12/2021 4:37 PM SUPPLIER DIVERSITY DIRECTOR): She called not too long ago with [...] before her surgery, either ordered by her photoengraving photographer or ordered by Dr. Walton so we can review them. Likewise for any EKG that is ordered. COVID-19 03/24/2020 05/05/2022 Overview (05/05/2022): Postive test. Followed by a month or more of post Covid congestion, saw BENITO Reed. Assessment & Plan (03/21/2021 12:17 PM SUPPLIER DIVERSITY DIRECTOR): Patient tested positive for covid on Monday [...] Reed. Assessment & Plan (02/12/2020 3:36 PM SUPPLIER DIVERSITY DIRECTOR): Patient has congestion, sinus pressure and ear [...] on file 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 SUPPLIER DIVERSITY DIRECTOR Gender Identity Not on file Sexual Orientation [...] as needed Medical Devices Implanted Type Area Peanut Butter Maker Device Identifier Shelf Expiration Date Model / Serial / Lot [employer] 2504-1 Regenerate Tendon Spalding Suture - [id number] Implanted:Qty: 1 on 10/17/2020 by Vince Walton MD at [facility] Left: Shoulder [employer] 02/13/2023 2504-1 / / [id number] [employer]/Or tho 4565 Implant Medium Arthroscopic Bioinductive W/ Delivery Device - [id number] Implanted:Qty: 1 on 10/17/2020 by Vince Walton MD at [facility] Left: Shoulder [employer]/Or tho 04/12/2021 4565 / / [id number] [employer]/Or tho 4403 Spalding Bone With Arthroscopic Delivery System Advanced - [id number] Implanted:Qty: 1 on 10/17/2020 by Vince Walton MD at [facility] Left: Shoulder [employer]/Or tho 12/28/2022 [id number] / / [id number] Procedures Procedure Name Priority Date/Time Associated Diagnosis [...] 2:56 PM CDT Bilateral anterior knee pain MO ARTHROCENTESIS ASPIR&/INJ MAJOR JT/BURSA W/O US Routine [...] IMG XR PROCEDURES Final Res ult * MO ARTHROCENTESIS ASPIR&/INJ MAJOR JT/BURSA W/O US (07/05/2024 [...] Impressions Clinton Ramirez MD - 06/24/2022 Negative, [facility]. Narrative Clinton Ramirez MD - 06/24/2022 See scanned report. Clinton Ramirez MD HEALTH MAINTENANCE Final Resu lt * PAP SMEAR WITH HPV (02/02/2019) Pathologist [facility] Pap smear Normal Comment:See scanned result. us Naomasa Hase DO HEALTH MAINTENANCE Final Result from Last 3 Months or Most Recently Relevant to Health Maintenance Insurance [facility] MEDICARE GOLD [employer] ADVANTAGE CHOICE PPO [employer] ADVANTAGE CHOICE PPO Care Teams Electronics Scale Tester Relationship Specialty Start Date End Date Clinton Ramirez MD [address] [place] [address] PCP - General Infectious Diseases 05/09/20 Raulito Weathers, JESSICA Registered Nurse 07/22/17 Sherman Milton MD [address] [place] [address] Consulting Physician Otolaryngology 03/21/19 Ilan Olsen MD [address] [place] [address] Consulting Physician Otolaryngology 03/21/19 Ganesh Hess MD [address] [place] [address] Consulting Physician Obstetrics and Gynecology 03/21/19 Evan Lozano MD [address] [place] [address] Consulting Physician Urology 12/06/17 Nicola Méndez DO [id number] [place] [address] Studio Musician Obstetrics and Gynecology 02/02/19 Juventino Keith MD [address] [place] [address] Referring Physician Rheumatology 05/09/20 Vince Walton MD [address] [facility] [address] [facility] [address] [place] [address] Surgeon Orthopedic Surgery 10/03/20 Carl Alicea PA [address] [facility] [address] [place] [address] Physician Quill Reamer Orthopedic Surgery 10/17/20 Heidy Kenny MD [address] [address] Consulting Physician Neurosurgery 07/13/22 Elijah Alas MD [facility] [address] [address] Consulting Physician Anesthesiology 04/15/23
--- OUTSIDE RECORDS SUMMARY | 2024-09-26 18:32 | XMS_ITS | Encounter Summary ---
Author Organization [facility] Address [address] [place] [address] Care Team Providers Care Plastic Surgery Nurse Name Role Phone Unavailable Primary Care Provider Unavailabl e Encounter Details Date Type Department Care Team (Latest Contact Info) Description 04/19/2006 Outpatient Historical [facility]LL[facility] Sherman Milton MD NO ADDRESS ON FILE Other Voice Disturbance (Primary Dx) Social History Tobacco Use Types Packs/Day Years Used Date Smoking Tobacco: Never Assessed Comments Unknown Sex and Gender Information Value Date Recorded Sex Assigned at Not on file Legal Sex Female 2:41 AM GLOBAL POSITION SYSTEM TECHNICIAN Gender Identity Not on file Sexual Orientation Not on file documented as of this encounter Plan of Treatment Not on file documented as of this encounter Visit Diagnoses Diagnosis Other voice and resonance disorders- Primary documented in this encounter
--- OUTSIDE RECORDS SUMMARY | 2024-09-26 18:32 | XMS_ITS | Encounter Summary ---
Author Organization [facility] Address [address] [place] [address] Care Team Providers Care Metallurgical Laboratory Assistant Name Role Phone Unavailable Primary Care Provider [...] on file Legal Sex Female 2:41 AM FRONT OFFICE SUPERVISOR Gender Identity Not on file Sexual Orientation Not on file documented as of this encounter Plan of Treatment Not on file documented as of this encounter Visit Diagnoses Not on filedocumented in this encounter
--- OUTSIDE RECORDS SUMMARY | 2024-09-26 18:32 | XMS_ITS | Clinical Summary ---
Author Organization [facility] Address [address] [facility] [place] [address] Care Team Providers Care Making Line Worker Name Role Phone Florentino Bo MD Primary Care Provider [phone] Source Comments [facility]',non-owned Affiliates and Associated Physician Practices is amultiple site organization consisting of ambulatory clinics and hospital sitesin [place], [place] and [place]. This disclosure is being madepursuant to the Care Everywhere program and may not contain all information available regarding this patient. 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 Not on file Not on file Not [...] Description 11/09/2024 1:15 PM CDT Office Visit [facility] ENT [address] [place] [phone] Ilan Olsen MD [address] DEPT [place] [address] Health Maintenance Due Date Last Done Comments [...] patient's age to complete this topic Insurance [facility] Member Subscriber Plan / Payer (Ef fective 2011-Present) Name:Azeb Valadez Relation to Subscriber:Spouse Name:WILLIAM VALADEZ Subscriber ID:Not on file Date of :1977 Payer ID:[id number] (NAIC) Type:PPO Address: [facility] [id number] [place] [id number] [employer] Care Teams Making Line Worker Relationship Specialty Start Date End Date Florentino Bo MD [address] [place] [address] PCP - General Internal Medicine 10/15/14
--- OUTSIDE RECORDS SUMMARY | 2024-09-26 18:32 | XMS_ITS | Encounter Summary ---
Author Organization [facility] Address [address] [place] [address] Phone Care Team Providers Care Spoilage Worker Name Role Phone Raulito Weathers RN Unavailable Unavailabl e Dagoberto Katz MD Unavailable [phone] Sherman Milton MD Unavailable Ilan Olsen MD Unavailable [phone] Ganesh Hess MD Unavailable [phone] Evan Lozano MD Unavailable [phone] Pebbles Méndezgreciabrandy ROMERO Unavailable Sherman Milton MD Unavailable Ilan Crowley MD Unavailable [phone] Clinton Ramirez MD Primary Care Provider [phone] Juventino Keith MD Unavailable [phone] Vince Walton MD Unavailable [phone] Carl Alicea Unavailable [phone] Heidy Kenny MD Unavailable [phone] Elijah Alas MD Unavailable [phone] Elijah Alas MD Unavailable [phone] Encounter Details Date Type Department Care Team (Late st Contact Info) Description 11/04/2021 Orders Only [facility] [address] [place] [address] Clinton Ramirez MD [address] [place] [address] Social History Tobacco Use Types Packs/Day Years [...] on file 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 RN DISCHARGE Gender Identity Not on file Sexual Orientation [...] on filedocumented in this encounter Care Teams Spoilage Worker Relationship Specialty Start Date End Date Clinton Ramirez MD [address] [address] PCP - General Infectious Diseases 05/09/20 Raulito Weathers, RN Registered Nurse 07/22/17 Dagoberto Katz MD [address] [place] [address] [place] [address] Consulting Physician Psychiatry 08/23/99 08/11/23 Sherman Milton MD [address] [place] [address] Consulting Physician Otolaryngology 03/21/19 Ilan Olsen MD [address] [place] [address] Consulting Physician Otolaryngology 03/21/19 Ganesh Hess MD [address] [place] [address] Consulting Physician Obstetrics and Gynecology 03/21/19 Evan Lozano MD [address] [place] [address] Consulting Physician Urology 12/06/17 Nicola Méndez DO [id number] [place] [address] Car Stereo Installer Obstetrics and Gynecology 02/02/19 Sherman Milton MD [address] [facility] [address] [place] [address] Consulting Physician Otolaryngology 11/14/19 04/14/23 Ilan Crowley MD [address] [facility] [id number] [place] [address] Anesthesiologist Anesthesiology 02/02/20 04/14/23 Juventino Keith MD [address] [place] [address] Referring Physician Rheumatology 05/09/20 Vince Walton MD [address] [facility] [address] [facility] [address] [place] [address] Surgeon Orthopedic Surgery 10/03/20 Carl Alicea PA [address] [facility] [address] [place] [address] Physician Governor Assembler Hydraulic Orthopedic Surgery 10/17/20 Heidy Kenny MD [facility] [address] [place] [address] Consulting Physician Neurosurgery 07/13/22 Elijah Alas MD 3 [facility] [address] [facility] [address] [place] [address] Consulting Physician Anesthesiology 04/15/23 Elijah Alas MD [address] [facility] [address] [place] [address] Consulting Physician Anesthesiology 08/12/23 08/12/23 documented as of this encounter
--- NOTE | 2024-09-26 19:37 | ED_ITS ---
HPI - General Adult General Chief complaint: Dizziness Stated complaint: vision shaky, headaches, dont feel right Time Seen by Provider: 09/26/24 18:11 History of Present Illness HPI narrative: Patient is tearful throughout the interview. This is a 54-year-old female with a history of anxiety with panic attacks, PTSD, insomnia, depression, chronic headaches presenting for feeling off. Patient says that her emotional support dog of 15 years 2 weeks ago. Shortly after that she developed numerous symptoms including visual changes that she describes as everything moving back and forth, fatigue, dizziness dropping items, headache in the front of her head and behind her ears. Patient admits she has had multiple crying spells. She is not coping well without her emotional support animal. The patient denies double vision, blurry vision, slurred speech, weakness to any extremity or any gait issues. Related Data Home Medications ?Medication ?Instructions ?Recorded ?Confirmed ?Last Taken ?Type albuterol sulfate 90 mcg/actuation 1 puff inhalation Q4H PRN 05/07/20 06/07/23 Unknown History aerosol inhaler (ProAir HFA) shortness of breath alprazolam 1 mg tablet 1 mg PO TID PRN anxiety 05/07/20 06/07/23 Unknown History esomeprazole magnesium 40 mg 40 mg PO DAILY 05/07/20 06/07/23 Unknown History capsule,delayed release gabapentin 100 mg capsule 100 mg PO QHS 05/07/20 06/07/23 Unknown History zaleplon 10 mg capsule 10 mg PO QHS PRN insomnia 05/07/20 09/04/24 Unknown History celecoxib 200 mg capsule mg 09/04/24 Unknown History fluoxetine 20 mg capsule mg 09/04/24 Unknown History hydrocodone 10 mg-acetaminophen tablet 09/04/24 Unknown History 325 mg tablet quetiapine 50 mg tablet mg 09/04/24 Unknown History Allergies Allergy/AdvReac Type Severity Reaction Status Date / Time paroxetine Allergy Unknown Rash Verified 09/26/24 15:17 [facility] Past Medical History Medical History Abnormal x-ray of humerus Elevated LFTs Encounter for screening colonoscopy Constipation LLQ pain RUQ pain Encounter for IUD removal 12/22/10 Mirena removal Vocal cord nodules x3 removed Encounter for screening for other viral diseases Degenerative joint disease of cervical and lumbar spine Seronegative rheumatoid arthritis of multiple sites (~2009) Rotator cuff injury Raynauds disease Fibromyalgia Osteopenia ADHD Insomnia PTSD (post-traumatic stress disorder) History of IBS Headache GERD (gastroesophageal reflux disease) Rheumatoid arthritis Arthritis Anxiety Asthma Allergies Surgical History Surgical History H/O shoulder surgery (10/17/20) left shoulder History of hysteroscopy 1994 hscope d&c 12/09/11 hscope d&c--irregular menses--proliferative endometrium mid phase H/O nasal septoplasty septoplasty & turbinectomy History of tonsillectomy Status post creation of urethral sling by suprapubic approach H/O shoulder surgery 02/19/18 lt shoulder Family History Family History Mother Family history of osteoporosis Family history of osteoarthritis Hypertension Emphysema lung Raynauds disease Arthritis Father Hypertension Asthma Depression Heart problem Kidney disease Grandparent Hypertension Cerebrovascular accident Rheumatoid arthritis Breast cancer paternal grandmother Pancreatic cancer maternal grandmother Social History Social History Smoking status: Never smoker Alcohol intake: current Alcohol use details: rarely Substance use: never Substance use type: does not use Lack of Transportation: No Lack of Food: Never True Current Housing: I Have Housing Concerned About Future Housing: No Difficulty Paying Gas/Electric Bills: No Difficulty Paying for Meds: No Currently Unemployed: No Education: Decline to Answer Difficulty w/ Childcare or Family Care: No Living arrangements: alone Additional living arrangements comments: Occupation/Education: 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 EYES: EOMI, NOSE: Atraumatic NECK: Trachea midline, no meningismus RESPIRATORY: No increased rate of breathing clear to auscultation CARDIOVASCULAR: RRR, ABDOMINAL: Non-distended soft nontender MUSCULOSKELETAl: No obvious deformities NEURO: Alert. Cranial nerves 2-12 grossly intact. Sensation light touch, motor function cerebellar function intact for 4 extremities. Gait exam was normal. SKIN:: Warm, dry. Normal color PSYCHIATRIC: Tearful Course Vital Signs Vital signs: Vital Signs Temperature 97.1 F L 09/26/24 15:21 Pulse Rate 69 09/26/24 15:21 Respiratory Rate 16 09/26/24 15:21 Blood Pressure 106/72 09/26/24 15:21 Pulse Oximetry 99 09/26/24 15:21 Temperature 97.1 F L 09/26/24 15:21 Pulse Rate 71 09/26/24 17:34 Respiratory Rate 17 09/26/24 17:34 Blood Pressure 103/74 09/26/24 17:34 Pulse Oximetry 100 09/26/24 17:34 Oxygen Delivery Room Air 09/26/24 17:30 Medical Decision Making MDM Narrative Medical decision making narrative: -Course: 54-year-old female presenting with multiple complaints after the of her emotional support animal. None of her complaints form a coherent constellation of symptoms to represent 1 disease process. Her vital signs are stable and her neurologic exam is normal. Her visual acuity is 20/ 25 in her left eye and 2020 in her right eye. CT brain was obtained which did not show hemorrhage or any mass effect. I suspect her symptoms are likely a grief reaction to the loss of her emotional support animal. Patient already has appointment to see her eye doctor early next week encouraged true seizure primary care physician as well. After discussing results with patient stated she had leaving left before she could get discharge paperwork. -DDX includes but is not limited to: CVA, stress reaction, grief reaction, f unctional neurologic deficit, ICH, brain mass -Co-morbidities complicating care: Anxiety with panic attacks, depression, insomnia, PTSD Vital Signs Vital Signs: Vital Signs Temperature 97.1 F L 09/26/24 15:21 Pulse Rate 69 09/26/24 15:21 Respiratory Rate 16 09/26/24 15:21 Blood Pressure 106/72 09/26/24 15:21 Pulse Oximetry 99 09/26/24 15:21 Temperature 97.1 F L 09/26/24 15:21 Pulse Rate 71 09/26/24 17:34 Respiratory Rate 17 09/26/24 17:34 Blood Pressure 103/74 09/26/24 17:34 Pulse Oximetry 100 09/26/24 17:34 Oxygen Delivery Room Air 09/26/24 17:30 Discharge Plan Discharge Clinical Impression: Complicated grieving Patient Disposition: Elopement After Seen by Prov Patient Language: Sierra Leonean Prescriptions: No Action celecoxib 200 mg capsule hydrocodone-acetaminophen 10-325 mg tablet fluoxetine 20 mg capsule quetiapine 50 mg tablet prednisone 20 mg tablet 20 mg PO DAILY Qty: 18 0RF Rx Instructions: take 3 tablets daily for 3 days, then 2 tablets daily for 3 days then 1 tablet daily for 3 days cephalexin 500 mg capsule 500 mg PO Q8H 5 Days Qty: 15 0RF famotidine [Pepcid] 40 mg tablet 40 mg PO DAILY Qty: 10 0RF albuterol sulfate [ProAir HFA] 90 mcg/actuation HFA aerosol inhaler 1 puff inhalation Q4H PRN (Reason: shortness of breath) alprazolam 1 mg tablet 1 mg PO TID PRN (Reason: anxiety) gabapentin 100 mg capsule 100 mg PO QHS esomeprazole magnesium 40 mg capsule,delayed release(DR/EC) 40 mg PO DAILY zaleplon 10 mg capsule 10 mg PO QHS PRN (Reason: insomnia) Rx Instructions: must avoid high-fat meal/food immediately before taking dose methotrexate sodium 2.5 mg tablet 25 mg PO WEEKLY Qty: 120 1RF folic acid 1 mg tablet 1 mg PO DAILY Qty: 90 1RF Linzess 290 mcg capsule 290 mcg PO DAILY 30 Days Qty: 30 2RF amlodipine 2.5 mg tablet 2.5 mg PO BID Qty: 60 6RF Follow-up/Referrals: PHYSICIAN NOT ON STAFF,NONSTAFF [Primary Care Provider] -
--- NOTE | 2024-09-26 19:52 | PC.NURSE ---
pt left the er without telling this RN. Registration told this RN they were asked by the pt where the exit was located and saw the pt walk out the ER
== END 2024-09-26 19:51 | disposition left against medical advice (07) ==
PROVIDERS: Emergency Provider Emergency Medicine
DX: F43.81 Prolonged grief disorder (principal); I73.00 Raynaud's syndrome without gangrene; J45.909 Unspecified asthma, uncomplicated; M47.816 Spondylosis without myelopathy or radiculopathy, lumbar region; M47.812 Spondylosis without myelopathy or radiculopathy, cervical region; M06.09 Rheumatoid arthritis without rheumatoid factor, multiple sites; M79.7 Fibromyalgia; M85.80 Other specified disorders of bone density and structure, unspecified site; K21.9 Gastro-esophageal reflux disease without esophagitis; F41.9 Anxiety disorder, unspecified; F43.10 Post-traumatic stress disorder, unspecified; Z79.899 Other long term (current) drug therapy
CPT/HCPCS: 70450; 99284

== ENCOUNTER 2024-09-28 15:06 | Emergency (ER) | payer OTHER, SELFPAY ==
--- NOTE | 2024-09-28 15:13 | ED_ITS ---
HPI - Dizziness General Chief Complaint: Dizziness Stated Complaint: Dizziness/Vision Issues Time Seen by Provider: 09/28/24 15:08 Source: patient Mode of arrival: ambulatory Limitations: no limitations History of Present Illness HPI Narrative: Patient is a 54-year-old female that presents with dizziness and shaky vision for 1 week. Patient was seen in the ER 09/[address] scan and was diagnosed with grief over the loss of her emotional support animal. Patient has history of anxiety and PTSD. Reports loss of Pet was sudden and unexpected. Patient does go to therapy and was seen by them today. Patient also saw eye doctor today and was told she had no concerns with her I health. Reports her eye doctor told her she may have vertigo and to try meclizine. Patient denies any numbness, tingling or weakness to extremities. Denies any room spinning or feeling like she is going to pass out. Patient also has headaches and history of migraines. Related Data Home Medications ?Medication ?Instructions ?Recorded ?Confirmed ?Last Taken ?Type alprazolam 1 mg tablet 1 mg PO TID PRN anxiety 05/07/20 06/07/23 Unknown History gabapentin 100 mg capsule 100 mg PO QHS 05/07/20 06/07/23 Unknown History zaleplon 10 mg capsule 10 mg PO QHS PRN insomnia 05/07/20 09/04/24 Unknown History celecoxib 200 mg capsule mg 09/04/24 Unknown History fluoxetine 20 mg capsule mg 09/04/24 Unknown History hydrocodone 10 mg-acetaminophen tablet 09/04/24 Unknown History 325 mg tablet quetiapine 50 mg tablet mg 09/04/24 Unknown History Allergies Allergy/AdvReac Type Severity Reaction Status Date / Time paroxetine Allergy Unknown Rash Verified 09/26/24 15:17 Review of Systems Review of Systems: All systems reviewed & are unremarkable except as noted in HPI and below Constitutional: Constitutional: Denies body ache(s), Denies chills, Denies fatigue, Denies fever(s), Denies headache(s), Denies malaise and Denies weakness Eyes: Eyes: Reports blurry vision, Denies irritation and Denies loss of vision ENT: Denies otalgia, Denies headache(s), Denies nasal discharge, Denies sinus pain and Denies sore throat Cardiovascular: Cardiovascular: Denies chest pain, Denies irregular heart rhythm and Denies dyspnea Respiratory: Respiratory: Denies dyspnea Gastrointestinal: Gastrointestinal: Denies abdominal pain, Denies melena, Denies hematochezia, Denies diarrhea, Denies nausea and Denies vomiting Musculoskeletal: Musculoskeletal: Denies back pain, Denies myalgias and Denies arthralgias Integumentary/Breasts: Skin/Breast: Denies pruritus and Denies rash Neurologic: Reports dizziness, Denies headache(s), Denies loss of vision and Denies weakness Psychiatric: Psychiatric: Reports no additional psychiatric complaints Endocrine: Endocrine: Denies fatigue [facility] Past Medical History Medical History Abnormal x-ray of humerus Elevated LFTs Encounter for screening colonoscopy Constipation LLQ pain RUQ pain Encounter for IUD removal 12/22/10 Mirena removal Vocal cord nodules x3 removed Encounter for screening for other viral diseases Degenerative joint disease of cervical and lumbar spine Seronegative rheumatoid arthritis of multiple sites (~2009) Rotator cuff injury Raynauds disease Fibromyalgia Osteopenia ADHD Insomnia PTSD (post-traumatic stress disorder) History of IBS Headache GERD (gastroesophageal reflux disease) Rheumatoid arthritis Arthritis Anxiety Asthma Allergies Surgical History Surgical History H/O shoulder surgery (10/17/20) left shoulder History of hysteroscopy 1994 hscope d&c 12/09/11 hscope d&c--irregular menses--proliferative endometrium mid phase H/O nasal septoplasty septoplasty & turbinectomy History of tonsillectomy Status post creation of urethral sling by suprapubic approach H/O shoulder surgery 02/19/18 lt shoulder Family History Family History Mother Family history of osteoporosis Family history of osteoarthritis Hypertension Emphysema lung Raynauds disease Arthritis Father Hypertension Asthma Depression Heart problem Kidney disease Grandparent Hypertension Cerebrovascular accident Rheumatoid arthritis Breast cancer paternal grandmother Pancreatic cancer maternal grandmother Social History Social History Smoking status: Never smoker Alcohol intake: current Alcohol use details: rarely Substance use: never Substance use type: does not use Lack of Transportation: No Lack of Food: Never True Current Housing: I Have Housing Concerned About Future Housing: No Difficulty Paying Gas/Electric Bills: No Difficulty Paying for Meds: No Currently Unemployed: No Education: Decline to Answer Difficulty w/ Childcare or Family Care: No Living arrangements: alone Additional living arrangements comments: Occupation/Education: occupation 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 There is no relevant family history pertinent to the presenting complaint. Exam Const: General: cooperative, healthy appearing, comfortable, no acute distress and well nourished Nutritional Appearance: well nourished Orientation/consciousness: patient oriented x3 Limitations: no limitations HENMT: Head: normal to inspection, normocephalic and atraumatic Ears: hearing grossly normal bilaterally, external ears normal, TM's normal bilaterally and EAC's normal Face/Nose/Sinus: Normal external nose present, normal facial exam and face symmetric Face and sinus: normal facial exam and face symmetric Mouth: Yes Normal oral and palatal mucosa present, Yes lip normal, Yes tongue normal and Yes oropharynx normal Teeth and gingiva: dentition normal Throat: posterior oropharynx normal, tonsils normal and uvula midline Eyes: General: appearance normal, both eyes and all related structures Alignment and Position: alignment normal and position normal Periorbital: periorbital findings normal Eyelids: eyelids normal Pupils: Equal, round and reactive pupils present EOM: EOMs intact bilaterally Neck: Neck: normal visual inspection, full ROM and supple Chest: Chest palpation & inspection: normal inspection of the chest Resp: Effort & Inspection: normal respiratory effort and able to speak in complete sentences Auscultation: clear to auscultation bilaterally, no crackles, no rales, no rhonchi and no wheezes Cardio: Rate: regular rate Rhythm: regular rhythm Heart sounds: S1 normal heart sound present and S2 normal heart sound present GI: Inspection: normal to inspection Skin: General skin exam: normal color and no rashes or lesions noted Neuro: General: patient oriented x3 and moves all extremities Cranial nerves: Yes Equal, round and reactive pupils present Cognition (Neuro): normal cognition Speech: normal speech Gait exam (Neuro): Normal gait present Motor exam (neuro): 5/5 motor strength present throughout, Normal motor muscle tone present throughout and Motor abnormalities not present Sensory Exam: normal sensation Extrem: General: normal to inspection, full ROM and no edema Psych: Appearance: grossly normal and well kempt Mental Status: mental status grossly normal Speech and movement: Normal speech and movement present Affect: normal affect Attitude: cooperative Thought process: Normal thought process present Course Course Emergency Course: Patient is aware of diagnosis, understands and agrees to treatment plan. Anticipatory guidance given. Patient agrees to follow-up as directed and is aware of reasons to seek care at the emergency department. Portions of this record may have been created with voice recognition software Level of Care: Express Care Visit Vital Signs Vital signs: Reviewed MDM - Dizziness MDM Narrative Medical decision making narrative: Patients vertigo is felt to be likely peripheral in origin. there is no diplopia, dysarthria, or dysphagia. Patients gait is stable and there are no focal neurological deficits on exam. Risk for central causes has been reviewed, and CT scan 09/26 was negative. Patient felt reasonable for continued outpatient management and risks are felt to outweigh benefits for further imaging studies at this time. Patient given meclizine. Will follow-up with new PCP in 20 days. Patient has her own plan in place to deal with her grief with the loss of her pet including prayer, restorationist and listening to podcasts along with therapy. Patient self aware and able to express her emotions well. Pt well hydrated appearing, in no respiratory distress, hemodynamically stable. The patient is stable at time of discharge the clinical impression was discussed and the patient was given the opportunity to ask questions, which were addressed as completely as possible given the information available at present. Anticipatory guidance and return to care precautions were discussed and the importance of primary care follow-up was stressed and encouraged. The patient voiced understanding of the plan, indications to return, and the need for follow-up. Patient is appropriate for outpatient treatment and follow-up. Differential Diagnosis Differential diagnosis: Likely benign paroxysmal positional vertigo, cerebrovascular accident, transient cerebral ischemia and other (Anxiety, PTSD) Medical Records Attestation: I reviewed the patient's medical records. Discharge Plan Discharge Clinical Impression: Vertigo, History of anxiety, History of post traumatic stress disorder Patient Disposition: Home Condition: Stable Instructions: Vertigo (ED) Additional Instructions: Take meclizine twice a day for dizziness Follow-up with PCP as needed or if you have worsening headache, vision changes, dizziness my persistent vomiting go to the emergency department. How do you know when anxiety is a medical problem? Everyone feels anxious or nervous once in a while. That is normal. But being extremely anxious or worried on most days for 6 months or longer is not normal. This is called generalized anxiety disorder. The disorder can make it hard to do everyday tasks. ? Generalized anxiety disorder is just 1 anxiety disorder. There are others, such as panic disorder and phobias. This article focuses on generalized anxiety disorder. ? What are the symptoms of extreme or severe anxiety? People with extreme or severe anxiety feel very worried or on edge much of the time. They can have trouble sleeping or forget things. Plus, they can have physical symptoms. For instance, people with severe anxiety often feel very tired and have tense muscles. Some get stomach aches or feel chest tightness. ? Should I see a doctor or nurse? See your doctor or nurse if you: 1.Are more anxious than you think is normal 2.Get overly anxious about things that other people handle more easily ? Your doctor or nurse can ask you questions that are designed to measure a person's anxiety level. If you do have a problem with anxiety, there are different treatments that can help. ? Is there anything I can do on my own to feel better? Yes. Exercise can help many people feel less anxious. It's also a good idea to cut down on or stop drinking coffee and other sources of caffeine. Caffeine can make anxiety worse. ? How is anxiety treated? Treatments include: ? 1.Psychotherapy - Psychotherapy involves meeting with a mental health counselor to talk about your feelings, relationships, and worries. Therapy can help you find new ways of thinking about your situation so that you feel less anxious. In therapy, you might also learn new skills to reduce anxiety. ? 2.Medicines - Medicines used to treat depression can relieve anxiety, too, even in people who are not depressed. Your doctor or nurse will decide which medicines are best for your situation. ? Some people have psychotherapy and take medicines at the same time. ? There is no reason to feel embarrassed about getting treatment for anxiety. Anxiety is a common problem. It affects all kinds of people. ? Keep in mind that it might take a little while to find the right treatment. People respond in different ways to medicines and therapy, so you might need to try a few approaches before you find the 1 that helps you most. The walker is to not give up and to let your doctor or nurse know how you feel along the way. Are there herbal treatments I can take? Makers of herbal drugs sometimes claim that their products relieve anxiety. For example, herbs called kava kava and valerian are sold as treatments for anxiety. But there is no evidence that these treatments work. Plus, kava kava has been linked with serious liver damage. It might not be safe. What will my life be like? People with anxiety disorders often have to deal with some anxiety for the rest of their life. For some, anxiety comes and goes, but gets bad during times of stress. The good news is, many people find effective treatments or ways to deal with their anxiety. Patient Language: Faroese Prescriptions: New meclizine 25 mg tablet 25 mg PO BID PRN (Reason: dizziness) Qty: 10 0RF No Action celecoxib 200 mg capsule hydrocodone-acetaminophen 10-325 mg tablet fluoxetine 20 mg capsule quetiapine 50 mg tablet famotidine [Pepcid] 40 mg tablet 40 mg PO DAILY Qty: 10 0RF alprazolam 1 mg tablet 1 mg PO TID PRN (Reason: anxiety) gabapentin 100 mg capsule 100 mg PO QHS zaleplon 10 mg capsule 10 mg PO QHS PRN (Reason: insomnia) Rx Instructions: must avoid high-fat meal/food immediately before taking dose methotrexate sodium 2.5 mg tablet 25 mg PO WEEKLY Qty: 120 1RF folic acid 1 mg tablet 1 mg PO DAILY Qty: 90 1RF Linzess 290 mcg capsule 290 mcg PO DAILY 30 Days Qty: 30 2RF amlodipine 2.5 mg tablet 2.5 mg PO BID Qty: 60 6RF Follow-up/Referrals: aStnam La MD [Physician] - 3 Days (Establish care) Time of Disposition: 15:41
[2024-09-28 15:15] VITALS: BP 112/65; PULSE 65; RESP 16; TEMP 36.8; O2SAT 100
== END 2024-09-28 15:50 | disposition home or self-care (01) ==
PROVIDERS: Emergency Provider Nurse Practitioner Family
DX: R42 Dizziness and giddiness (principal); F41.9 Anxiety disorder, unspecified; F43.10 Post-traumatic stress disorder, unspecified; M47.812 Spondylosis without myelopathy or radiculopathy, cervical region; M47.816 Spondylosis without myelopathy or radiculopathy, lumbar region; M06.09 Rheumatoid arthritis without rheumatoid factor, multiple sites; M79.7 Fibromyalgia; M85.80 Other specified disorders of bone density and structure, unspecified site; K21.9 Gastro-esophageal reflux disease without esophagitis; J45.909 Unspecified asthma, uncomplicated
CPT/HCPCS: 99213; G0463